=== PATIENT | male | born 1955 | race Caucasian/White ===

== ENCOUNTER 2016-08-10 01:46 | Emergency (ER) | payer MEDICAID ==
[2016-08-10 01:47] VITALS: BMI 33.4
[2016-08-10 01:58] VITALS: BP 160/91; PULSE 72; RESP 18; TEMP 98.6; O2SAT 100
[2016-08-10] MEDS ORDERED: Oxycodone/Acetaminophen 5/325 mg Tab PO STA (01:58)
--- NOTE | 2016-08-10 02:00 | ED PDOC ---
Arrival/HPI - General Historian: Patient <Renan Fisher - Last Filed: 08/10/16 02:05> <Po Kimball - Last Filed: 08/10/16 02:20> - General Chief Complaint: Abnormal Skin Integrity Time Seen by Provider: 08/10/16 01:58 - History of Present Illness Narrative History of Present Illness (Text): 08/10/16 01:50 60 y/o male, pmh including htn/hyperlipidemia/dm, nkda, c/o painful rash on the rt. sided flank x 2 days. Pt. stated that it was itching but now it's painful, itching resolved, no fever or chills, no chest pain or shortness of breath, no palpitation, no other medical or psychological complaints. (Renan Fisher) Past Medical History - Provider Review Nursing Documentation Reviewed: Yes - Infectious Disease Hx of Infectious Diseases: None - Cardiac Hx Hypertension: Yes - Pulmonary Hx Chronic Obstructive Pulmonary Disease (COPD): Yes - Neurological Hx Neurological Disorder: No - HEENT Hx HEENT Disorder: No - Renal Hx Renal Disorder: No - Endocrine/Metabolic Hx Endocrine Disorders: Yes Hx Diabetes Mellitus Type 2: Yes - Hematological/Oncological Hx Blood Transfusions: No Hx Blood Transfusion Reaction: No - Integumentary Hx Dermatological Disorder: No - Musculoskeletal/Rheumatological Hx Musculoskeletal Disorders: No Hx Falls: No - Gastrointestinal Hx Gastrointestinal Disorders: Yes Hx Gastroesophageal Reflux: Yes - Genitourinary/Gynecological Hx Genitourinary Disorders: No - Psychiatric Hx Psychophysiologic Disorder: No Hx Depression: No Hx Emotional Abuse: No Hx Physical Abuse: No Hx Substance Use: No - Surgical History Hx Cardiac Catheterization: Yes Hx Coronary Stent: Yes (X3) Other/Comment: CARDIAC CATH X 3 STENTS - Anesthesia Hx Anesthesia Reactions: No Hx Malignant Hyperthermia: No - Suicidal Assessment Feels Threatened In Home Enviroment: No <Renan Fisher - Last Filed: 08/10/16 02:05> Family/Social History - Physician Review Nursing Documentation Reviewed: Yes Family/Social History: Unknown Family HX Smoking Status: Former Smoker Hx Alcohol Use: No Hx Substance Use: No Hx Substance Use Treatment: No <Renan Fisher - Last Filed: 08/10/16 02:05> Allergies/Home Meds <Renan Fisher - Last Filed: 08/10/16 02:05> <Po Kimball - Last Filed: 08/10/16 02:20> Allergies/Adverse Reactions: Allergies apple Allergy (Verified 05/01/15 23:36) RASH peach Allergy (Verified 05/01/15 23:36) SWELLING pear Allergy (Verified 05/01/15 23:36) SWELLING Home Medications: Home Meds Medication Instructions Recorded Confirmed Multivit,Iron,Min 5/Folic Acid 1 tab PO DAILY 02/17/15 06/20/16 [Strovite Forte Caplet] Metformin HCl [Glucophage] 500 mg PO DAILY 05/01/15 06/20/16 Aspirin [Adult Low Dose Aspirin EC] 81 mg PO DAILY 06/20/16 06/20/16 Fenofibrate,Micronized 130 mg PO DAILY 06/20/16 06/20/16 [Fenofibrate] Metoprolol Tartrate [Lopressor] 50 mg PO DAILY 06/20/16 06/20/16 Simvastatin 20 mg PO DAILY 06/20/16 06/20/16 Valsartan [Diovan] 160 mg PO DAILY 06/20/16 06/20/16 Review of Systems - Review of Systems Constitutional: absent: Fatigue, Fevers Eyes: absent: Vision Changes ENT: absent: Hearing Changes Respiratory: absent: SOB, Cough, Sputum Cardiovascular: absent: Chest Pain Gastrointestinal: absent: Abdominal Pain, Diarrhea, Nausea, Vomiting Skin: Rash, Skin Lesions. absent: Pruritis, Laceration, Abscess, Ulcer, Cellulitis Neurological: absent: Headache, Dizziness, Facial Droop Endocrine: absent: Diaphoresis <Renan Fisher - Last Filed: 08/10/16 02:05> Physical Exam Vital Signs Reviewed: Yes Temperature: Afebrile Blood Pressure: Hypertensive Pulse: Regular Respiratory Rate: Normal Appearance: Positive for: Well-Appearing, Non-Toxic, Comfortable Pain Distress: Moderate Mental Status: Positive for: Alert and Oriented X 3 - Systems Exam Head: Present: Atraumatic, Normocephalic Pupils: Present: PERRL Extroacular Muscles: Present: EOMI Conjunctiva: Present: Normal Mouth: Present: Moist Mucous Membranes Neck: Present: Normal Range of Motion Respiratory/Chest: Present: Clear to Auscultation, Good Air Exchange. No: Respiratory Distress, Accessory Muscle Use Cardiovascular: Present: Regular Rate and Rhythm, Normal S1, S2. No: Murmurs Abdomen: Present: Normal Bowel Sounds. No: Tenderness, Distention, Peritoneal Signs Back: Present: Normal Inspection Upper Extremity: Present: Normal Inspection. No: Cyanosis, Edema Lower Extremity: Present: Normal Inspection. No: Edema Neurological: Present: GCS=15, Speech Normal, Motor Func Grossly Intact, Gait Normal, Memory Normal Skin: Present: Warm, Dry, Rashes (visible herpes zoster vesicular lesions following the dermatome T10 region on the rt. lateral without crossing the midline, no cellulitis or streaking, no ulcers. ), Normal Color Psychiatric: Present: Alert, Oriented x 3, Normal Insight, Normal Concentration <Renan Fisher - Last Filed: 08/10/16 02:05> Medical Decision Making <Renan Fisher - Last Filed: 08/10/16 02:05> <Po Kimball - Last Filed: 08/10/16 02:20> ED Course and Treatment: 08/10/16 01:59 -valtrex, prednisone, percocet -I checked the [facility] report, pt. only receive 1 narcotic in the past 365 days. -Discharge home with prednisone, valtrex, percocet, bed rest, keep the skin cool and dry, follow up with your own pmd and director investment banking within 2 days, return to the ER for any new or worsening signs or symptoms. (Renan Fisher) - Medication Orders Current Medication Orders: Discontinued Medications Oxycodone/Acetaminophen (Percocet 5/325 Mg Tab) 1 tab PO STAT STA Stop: 08/10/16 01:59 Last Admin: 08/10/16 02:05 Dose: 1 tab Prednisone (Prednisone Tab) 60 mg PO STAT ONE Stop: 08/10/16 01:59 Last Admin: 08/10/16 02:05 Dose: 60 mg Valacyclovir HCl (Valtrex) 1 gm PO STAT STA PRN Reason: Protocol Stop: 08/10/16 01:59 Last Admin: 08/10/16 02:04 Dose: 1 gm - PA / GROUP HOME COUNSELOR / Resident Statement / has reviewed & agrees with the documentation as recorded. <Renan Fisher - Last Filed: 08/10/16 02:05> - PA / GROUP HOME COUNSELOR / Resident Statement [facility] has reviewed & agrees with the documentation as recorded. <Po Kimball - Last Filed: 08/10/16 02:20> Disposition/Present on Arrival - Present on Arrival Any Indicators Present on Arrival: No History of DVT/PE: No History of Uncontrolled Diabetes: No Urinary Catheter: No History of Decub. Ulcer: No History Surgical Site Infection Following: None - Disposition Have Diagnosis and Disposition been Completed?: Yes Disposition Time: 02:00 Patient Plan: Discharge <Renan Fisher - Last Filed: 08/10/16 02:05> <Po Kimball - Last Filed: 08/10/16 02:20> - Disposition Diagnosis: Herpes zoster Disposition: HOME/ ROUTINE Condition: GOOD Discharge Instructions (ExitCare): Shingles (ED) Additional Instructions: Discharge home with prednisone, valtrex, percocet, bed rest, keep the skin cool and dry, follow up with your own pmd and director investment banking within 2 days, return to the ER for any new or worsening signs or symptoms. Prescriptions: oxyCODONE/Acetaminophen [Percocet 5/325 mg Tab] 1 tab PO QID PRN #12 tab PRN Reason: other predniSONE [Prednisone] 2 tab PO DAILY #8 tab valACYclovir [Valtrex] 1 gm PO TID #21 tab Referrals: Homero Vallejo MD [Staff Provider] - Follow up with primary Jean-Pierre Estes MD [Staff Provider] - Follow up with primary [facility] at [facility] [place] [Outside] - Follow up with primary Forms: WORK NOTE
== END 2016-08-10 06:22 | disposition home or self-care (01) ==
LOC: ED 01:46
DX: B02.9 Zoster without complications (principal); Z87.891 Personal history of nicotine dependence; E11.9 Type 2 diabetes mellitus without complications; I10 Essential (primary) hypertension

== ENCOUNTER 2016-08-16 09:07 | Emergency (ER) | payer MEDICAID ==
[2016-08-16 09:08] VITALS: BMI 33.4
--- NOTE | 2016-08-16 09:16 | ED PDOC ---
Arrival/HPI - General Time Seen by Provider: 08/16/16 09:13 Historian: Patient - History of Present Illness Narrative History of Present Illness (Text): 08/16/16 09:15 60 y/o male, pmh including htn/hyperlipidemia/dm, nkda, c/o shingle lesion pain x 2 days. Pt. was seen here by me o 08/12/2016, done with the prednisone and percocets, pain and rash has decreased but not completely resolved, still has 2 tablets of valtrex in the bottle, here for the pain med due to the shingle pain on the rt. flank, no urinary symptoms, no hematuria, no night sweat, no dizziness, no chest pain or shortness of breath, no palpitation, no other medical or psychological complaints. Past Medical History - Provider Review Nursing Documentation Reviewed: Yes - Infectious Disease Hx of Infectious Diseases: None - Cardiac Hx Hypertension: Yes - Pulmonary Hx Chronic Obstructive Pulmonary Disease (COPD): Yes - Neurological Hx Neurological Disorder: No - HEENT Hx HEENT Disorder: No - Renal Hx Renal Disorder: No - Endocrine/Metabolic Hx Endocrine Disorders: Yes Hx Diabetes Mellitus Type 2: Yes - Hematological/Oncological Hx Blood Transfusions: No Hx Blood Transfusion Reaction: No - Integumentary Hx Dermatological Disorder: No - Musculoskeletal/Rheumatological Hx Musculoskeletal Disorders: No Hx Falls: No - Gastrointestinal Hx Gastrointestinal Disorders: Yes Hx Gastroesophageal Reflux: Yes - Genitourinary/Gynecological Hx Genitourinary Disorders: No - Psychiatric Hx Psychophysiologic Disorder: No Hx Depression: No Hx Emotional Abuse: No Hx Physical Abuse: No Hx Substance Use: No - Surgical History Hx Cardiac Catheterization: Yes Hx Coronary Stent: Yes (X3) Other/Comment: CARDIAC CATH X 3 STENTS - Anesthesia Hx Anesthesia Reactions: No Hx Malignant Hyperthermia: No - Suicidal Assessment Feels Threatened In Home Enviroment: No Family/Social History - Physician Review Nursing Documentation Reviewed: Yes Family/Social History: Unknown Family HX Smoking Status: Former Smoker Hx Alcohol Use: No Hx Substance Use: No Hx Substance Use Treatment: No Allergies/Home Meds Allergies/Adverse Reactions: Allergies apple Allergy (Verified 08/16/16 09:32) RASH peach Allergy (Verified 08/16/16 09:32) SWELLING pear Allergy (Verified 08/16/16 09:32) SWELLING Home Medications: Home Meds Medication Instructions Recorded Confirmed Multivit,Iron,Min 5/Folic Acid 1 tab PO DAILY 02/17/15 06/20/16 [Strovite Forte Caplet] Metformin HCl [Glucophage] 500 mg PO DAILY 05/01/15 06/20/16 Aspirin [Adult Low Dose Aspirin EC] 81 mg PO DAILY 06/20/16 06/20/16 Fenofibrate,Micronized 130 mg PO DAILY 06/20/16 06/20/16 [Fenofibrate] Metoprolol Tartrate [Lopressor] 50 mg PO DAILY 06/20/16 06/20/16 Simvastatin 20 mg PO DAILY 06/20/16 06/20/16 Valsartan [Diovan] 160 mg PO DAILY 06/20/16 06/20/16 Review of Systems - Review of Systems Constitutional: absent: Fatigue, Fevers Eyes: absent: Vision Changes ENT: absent: Hearing Changes Respiratory: absent: SOB, Cough Cardiovascular: absent: Chest Pain Gastrointestinal: absent: Abdominal Pain, Nausea, Vomiting Skin: Rash, Skin Lesions. absent: Pruritis, Laceration, Abscess, Ulcer, Cellulitis Neurological: absent: Headache, Dizziness, Focal Weakness Physical Exam - Systems Exam Head: Present: Atraumatic, Normocephalic Pupils: Present: PERRL Extroacular Muscles: Present: EOMI Conjunctiva: Present: Normal Mouth: Present: Moist Mucous Membranes Neck: Present: Normal Range of Motion Respiratory/Chest: Present: Clear to Auscultation, Good Air Exchange. No: Respiratory Distress, Accessory Muscle Use Cardiovascular: Present: Regular Rate and Rhythm, Normal S1, S2. No: Murmurs Abdomen: Present: Normal Bowel Sounds. No: Tenderness, Distention, Peritoneal Signs Back: Present: Normal Inspection Upper Extremity: Present: Normal Inspection. No: Cyanosis, Edema Lower Extremity: Present: Normal Inspection. No: Edema Neurological: Present: GCS=15, Speech Normal, Motor Func Grossly Intact, Gait Normal, Memory Normal Skin: Present: Warm, Dry, Rashes (rt. flank region unilateral following the thoracic dermatome visible dry healing vesicular herpetic rash with no cellulitis or streaking, no ulcers. ), Normal Color Psychiatric: Present: Alert, Oriented x 3, Normal Insight, Normal Concentration Medical Decision Making ED Course and Treatment: 08/16/16 09:32 -toradol IM and gabapentin/percocet -I explained to the patient I will give him titrated gabapentin and he will need to follow up with your own pmd Dr. Riggs for additional prescription. -Discharge home with gabapentin (please take it as instructed and this is a titrated medication which you will need additional prescription from dr. riggs) , follow up with your own pmd within 2 days, contact isolation as shingles is contagious, return to the ER for any new or worsening signs or symptoms. - PA / CARE MANAGEMENT ASSISTANT / Resident Statement MD/DO has reviewed & agrees with the documentation as recorded. Disposition/Present on Arrival - Present on Arrival Any Indicators Present on Arrival: No History of DVT/PE: No History of Uncontrolled Diabetes: No Urinary Catheter: No History of Decub. Ulcer: No History Surgical Site Infection Following: None - Disposition Have Diagnosis and Disposition been Completed?: Yes Diagnosis: Post herpetic neuralgia Disposition: HOME/ ROUTINE Disposition Time: 09:36 Patient Plan: Discharge Condition: GOOD Additional Instructions: Discharge home with gabapentin (please take it as instructed and this is a titrated medication which you will need additional prescription from dr. riggs) , follow up with your own pmd within 2 days, contact isolation as shingles is contagious, return to the ER for any new or worsening signs or symptoms. Prescriptions: Gabapentin 300 mg PO DAILY #22 capsule Referrals: [facility] [place]] - Follow up with primary Geoffrey Hansen MD [Staff Provider] - Follow up with primary Forms: WORK NOTE
[2016-08-16] MEDS ORDERED: Oxycodone/Acetaminophen 5/325 mg Tab PO STA (09:32)
[2016-08-16 09:33] VITALS: BP 162/94; PULSE 60; RESP 18; TEMP 97.8; O2SAT 96
== END 2016-08-16 10:20 | disposition home or self-care (01) ==
LOC: ED 09:07
DX: B02.29 Other postherpetic nervous system involvement (principal)
CPT/HCPCS: 96372; 99283; J1885

== ENCOUNTER 2016-08-17 03:07 | Emergency (ER) | payer MEDICAID ==
[2016-08-17 03:09] VITALS: BMI 33.4
[2016-08-17 03:29] VITALS: RESP 18; TEMP 97.6
[2016-08-17] MEDS ORDERED: HYDROmorphone 1 mg/ml ISec SC STA (04:25)
--- NOTE | 2016-08-17 04:37 | ED PDOC ---
Arrival/HPI - General Chief Complaint: Medical Clearance Time Seen by Provider: 08/17/16 04:11 Historian: Patient - History of Present Illness Narrative History of Present Illness (Text): 08/17/16 04:32 Phong Miranda is a 60 year old male, with a history of CAD and hypertension, presents to the emergency department for evaluation of recurrence of pain due to shingles. Patient initially presented to the emergency department on 2016 when he was diagnosed with shingles and sent home on Acyclovir, Prednisone and 12 percocet tablets. Patient presented yesterday to the emergency department with recurrence of pain and was given prescription for Gabapentin, which he has filled. He presents today with recurrence of same pain along the area of the rash. No fever, or vomiting. Symptom Course: Unchanged Severity Level: Mild Activities at Onset: Light Past Medical History - Provider Review Nursing Documentation Reviewed: Yes - Infectious Disease Hx of Infectious Diseases: None - Cardiac Hx Hypertension: Yes Other/Comment: CAD,5 stents - Pulmonary Hx Chronic Obstructive Pulmonary Disease (COPD): Yes - Neurological Hx Neurological Disorder: No - HEENT Hx HEENT Disorder: No - Renal Hx Renal Disorder: No - Endocrine/Metabolic Hx Endocrine Disorders: Yes Hx Diabetes Mellitus Type 2: Yes - Hematological/Oncological Hx Blood Disorders: No Hx Blood Transfusions: No Hx Blood Transfusion Reaction: No - Integumentary Hx Dermatological Disorder: No - Musculoskeletal/Rheumatological Hx Musculoskeletal Disorders: No Hx Falls: No - Gastrointestinal Hx Gastrointestinal Disorders: Yes Hx Gastroesophageal Reflux: Yes - Genitourinary/Gynecological Hx Genitourinary Disorders: No - Psychiatric Hx Psychophysiologic Disorder: No Hx Depression: No Hx Emotional Abuse: No Hx Physical Abuse: No Hx Substance Use: No - Surgical History Hx Cardiac Catheterization: Yes Hx Coronary Stent: Yes (x 5) Other/Comment: CARDIAC CATH X 3 STENTS - Anesthesia Hx Anesthesia Reactions: No Hx Malignant Hyperthermia: No - Suicidal Assessment Feels Threatened In Home Enviroment: No Family/Social History - Physician Review Nursing Documentation Reviewed: Yes Family/Social History: No Known Family HX Smoking Status: Former Smoker Hx Alcohol Use: No Hx Substance Use: No Hx Substance Use Treatment: No Allergies/Home Meds Allergies/Adverse Reactions: Allergies apple Allergy (Verified 08/17/16 03:30) RASH peach Allergy (Verified 08/16/16 09:32) SWELLING pear Allergy (Verified 08/16/16 09:32) SWELLING Home Medications: Home Meds Medication Instructions Recorded Confirmed Multivit,Iron,Min 5/Folic Acid 1 tab PO DAILY 02/17/15 08/17/16 [Strovite Forte Caplet] Metformin HCl [Glucophage] 500 mg PO DAILY 05/01/15 08/17/16 Aspirin [Adult Low Dose Aspirin EC] 81 mg PO DAILY 06/20/16 08/17/16 Fenofibrate,Micronized 130 mg PO DAILY 06/20/16 08/17/16 [Fenofibrate] Metoprolol Tartrate [Lopressor] 50 mg PO DAILY 06/20/16 08/17/16 Simvastatin 20 mg PO DAILY 06/20/16 08/17/16 Valsartan [Diovan] 160 mg PO DAILY 06/20/16 08/17/16 Gabapentin 300 mg PO TID 08/17/16 08/17/16 Review of Systems - Review of Systems Constitutional: absent: Fevers Gastrointestinal: Abdominal Pain (related to the rash). absent: Nausea, Vomiting Skin: Rash (Pain along the shingles rash. ) Physical Exam Vital Signs Reviewed: Yes Vital Signs Temp Pulse Resp BP Pulse Ox 08/17/16 04:35 64 18 139/75 97 08/17/16 03:25 97.6 F 65 18 144/85 97 Temperature: Afebrile Blood Pressure: Normal Pulse: Regular Respiratory Rate: Normal Appearance: Positive for: Non-Toxic Pain Distress: Moderate Mental Status: Positive for: Alert and Oriented X 3 - Systems Exam Head: Present: Atraumatic, Normocephalic Abdomen: Present: Normal Bowel Sounds, Other (resolving shinges rash on right side extending to right flank region, not crossing midline. No vesicular lesions. ). No: Tenderness, Distention, Peritoneal Signs Neurological: Present: GCS=15, CN II-XII Intact, Speech Normal Skin: Present: Warm, Dry, Rashes (as noted), Normal Color Psychiatric: Present: Alert, Oriented x 3, Normal Insight, Normal Concentration Medical Decision Making ED Course and Treatment: 08/17/16 04:40 Impression: Patient is a 60 year old male who presents to the emergency department complaining of recurrence of pain along the area of shingles rash. Progress Notes: 08/17/16 04:46 Patient with resolving shingles rash with pain related to shingles or developing post-herpetic neuralgia. 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 Will give an additional script for 8 tabs of percocet, as he continues the gabapentin, which is not helping as of yet. He cannot be placed on nsaids as he has CAD with stents. 08/17/16 04:55 Will also recommend he follow up with pain management. - Medication Orders Current Medication Orders: Discontinued Medications Hydromorphone HCl (Dilaudid) 1 mg SC STAT STA Stop: 08/17/16 04:26 Last Admin: 08/17/16 04:37 Dose: 1 mg - Scribe Statement The provider has reviewed the documentation as recorded by the Jomar Burgos Provider Attestation: All medical record entries made by the Jomar were at my direction and personally dictated by me. I have reviewed the chart and agree that the record accurately reflects my personal performance of the history, physical exam, medical decision making, and the department course for this patient. I have also personally directed, reviewed, and agree with the discharge instructions and disposition. Disposition/Present on Arrival - Present on Arrival Any Indicators Present on Arrival: No History of DVT/PE: No History of Uncontrolled Diabetes: No Urinary Catheter: No History of Decub. Ulcer: No History Surgical Site Infection Following: None - Disposition Have Diagnosis and Disposition been Completed?: Yes Diagnosis: Shingles Disposition: HOME/ ROUTINE Disposition Time: 05:00 Patient Plan: Discharge Condition: GOOD Discharge Instructions (ExitCare): Shingles (ED) Additional Instructions: Continue the gabapentin. Take the percocet as prescribed. Follow up with Dr. Marti and pain management. Return to the emergency department if any new concerning symptoms. Prescriptions: oxyCODONE/Acetaminophen [Percocet 5/325 mg Tab] 1 tab PO Q6H PRN #8 tab PRN Reason: Pain, Severe (8-10) Referrals: Randall Lora MD [Staff Provider] - Follow up with primary
[2016-08-17 05:08] VITALS: BP 138/78; PULSE 66; O2SAT 98
== END 2016-08-17 05:10 | disposition home or self-care (01) ==
LOC: ED 03:07
DX: B02.9 Zoster without complications (principal)
CPT/HCPCS: 96372; 99283; J1170

== ENCOUNTER 2016-09-22 17:02 | Emergency (ER) | payer MEDICAID ==
[2016-09-22] MEDS ORDERED: Sodium Chloride 0.9% 1,000 ML IV STA (17:38)
--- NOTE | 2016-09-22 17:45 | ED PDOC ---
Arrival/HPI - General Time Seen by Provider: 09/22/16 17:31 Historian: Patient - History of Present Illness Narrative History of Present Illness (Text): 09/22/16 17:34 A 61 year old male with no known past medical history presents to the emergency department with left flank and left testicular pain today. The patient states that 3 hours ago he was in pain, but he is currently in no pain. He notes that he had diarrhea and vomiting. The patient denies headache, dizziness, nausea, chest pain, fevers, chills, dysuria, hematuria, or any other complaint. Time/Duration: Other (Today) Symptom Onset: Sudden Symptom Course: Unchanged Activities at Onset: Rest, Light Context: Home Past Medical History - Provider Review Nursing Documentation Reviewed: Yes - Infectious Disease Hx of Infectious Diseases: None - Cardiac Hx Hypertension: Yes Other/Comment: CAD,5 stents - Pulmonary Hx Chronic Obstructive Pulmonary Disease (COPD): Yes - Neurological Hx Neurological Disorder: No - HEENT Hx HEENT Disorder: No - Renal Hx Renal Disorder: No - Endocrine/Metabolic Hx Endocrine Disorders: Yes Hx Diabetes Mellitus Type 2: Yes - Hematological/Oncological Hx Blood Disorders: No Hx Blood Transfusions: No Hx Blood Transfusion Reaction: No - Integumentary Hx Dermatological Disorder: No - Musculoskeletal/Rheumatological Hx Musculoskeletal Disorders: No Hx Falls: No - Gastrointestinal Hx Gastrointestinal Disorders: Yes Hx Gastroesophageal Reflux: Yes - Genitourinary/Gynecological Hx Genitourinary Disorders: No - Psychiatric Hx Psychophysiologic Disorder: No Hx Depression: No Hx Emotional Abuse: No Hx Physical Abuse: No Hx Substance Use: No - Surgical History Hx Cardiac Catheterization: Yes Hx Coronary Stent: Yes (x 5) Other/Comment: CARDIAC CATH X 3 STENTS - Anesthesia Hx Anesthesia Reactions: No Hx Malignant Hyperthermia: No - Suicidal Assessment Feels Threatened In Home Enviroment: No Family/Social History - Physician Review Nursing Documentation Reviewed: Yes Family/Social History: No Known Family HX Smoking Status: Former Smoker Hx Alcohol Use: No Hx Substance Use: No Hx Substance Use Treatment: No Allergies/Home Meds Allergies/Adverse Reactions: Allergies apple Allergy (Verified 08/17/16 03:30) RASH peach Allergy (Verified 08/16/16 09:32) SWELLING pear Allergy (Verified 08/16/16 09:32) SWELLING Home Medications: Home Meds Medication Instructions Recorded Confirmed Multivit,Iron,Min 5/Folic Acid 1 tab PO DAILY 02/17/15 08/17/16 [Strovite Forte Caplet] Metformin HCl [Glucophage] 500 mg PO DAILY 05/01/15 08/17/16 Aspirin [Adult Low Dose Aspirin EC] 81 mg PO DAILY 06/20/16 08/17/16 Fenofibrate,Micronized 130 mg PO DAILY 06/20/16 08/17/16 [Fenofibrate] Metoprolol Tartrate [Lopressor] 50 mg PO DAILY 06/20/16 08/17/16 Simvastatin 20 mg PO DAILY 06/20/16 08/17/16 Valsartan [Diovan] 160 mg PO DAILY 06/20/16 08/17/16 Gabapentin 300 mg PO TID 08/17/16 08/17/16 Review of Systems - Physician Review All systems were reviewed & negative as marked: Yes - Review of Systems Constitutional: absent: Fevers, Night Sweats Respiratory: absent: SOB, Cough Cardiovascular: absent: Chest Pain Gastrointestinal: Diarrhea, Vomiting. absent: Nausea Genitourinary Male: absent: Dysuria, Hematuria Neurological: absent: Headache, Dizziness Physical Exam Vital Signs Reviewed: Yes Vital Signs Temp Pulse Resp BP Pulse Ox 09/22/16 17:49 98.2 F 83 16 151/84 H 97 Appearance: Positive for: Well-Appearing, Non-Toxic, Comfortable Pain Distress: None Mental Status: Positive for: Alert and Oriented X 3 - Systems Exam Head: Present: Atraumatic, Normocephalic Pupils: Present: PERRL Extroacular Muscles: Present: EOMI Conjunctiva: Present: Normal Mouth: Present: Moist Mucous Membranes Neck: Present: Normal Range of Motion Respiratory/Chest: Present: Clear to Auscultation, Good Air Exchange. No: Respiratory Distress, Accessory Muscle Use Cardiovascular: Present: Regular Rate and Rhythm, Normal S1, S2. No: Murmurs Abdomen: Present: Normal Bowel Sounds. No: Tenderness, Distention, Peritoneal Signs Back: Present: Normal Inspection Upper Extremity: Present: Normal Inspection. No: Cyanosis, Edema Lower Extremity: Present: Normal Inspection. No: Edema Neurological: Present: GCS=15, CN II-XII Intact, Speech Normal Skin: Present: Warm, Dry, Normal Color. No: Rashes Psychiatric: Present: Alert, Oriented x 3, Normal Insight, Normal Concentration Medical Decision Making ED Course and Treatment: 09/22/16 17:47 Impression: A 71 year old male with a complaint of left flank and left testicular pain. Differential Diagnosis included but are not limited to: r/o renal colic tosion ,epdidimyitis, uti/pyelo Plan: -- Abdomen/Pelvis CT -- Toradol and IV Fluids -- Labs -- Urinalysis -- US Testes -- Reassess and disposition Progress Notes: US Scrotum IMPRESSION: No torsion; mild hyperemia of the left testis on color imaging suggests orchitis CT Abdomen and Pelvis Without Intravenous Contrast IMPRESSION: 2.1 mm obstructing distal left ureteral stone; multiple nonobstructing left renal stones; probable left ureteropelvic junction obstruction; gallstone 09/22/16 20:41 pt pain free in er. us shows very slight increased flow, suggestive of orchititis. abd pelvis shows 2mm distal stone. pain resolved in er. urine neg for infection. antibiotics given for mild orchtiis. pt states feels well for d/ c. advise outpt f/u and return precautions - Lab Interpretations Lab Results: 09/22/16 17:50 09/22/16 17:50 Lab Results 09/22/16 17:50: Sodium 140, Potassium 4.2, Chloride 100, Carbon Dioxide 28, Anion Gap 16, BUN 20, Creatinine 1.5 H, Est GFR ( Amer) 58, Est GFR (Non- Af Amer) 48, Random Glucose 188 H, Calcium 9.4, Total Bilirubin 0.6, AST 25, ALT 26, Alkaline Phosphatase 78, Total Protein 7.6, Albumin 4.4, Globulin 3.2, Albumin/Globulin Ratio 1.4, Lipase 153 09/22/16 17:50: PT 11.1, INR 1.03, APTT 25.3 09/22/16 17:50: WBC 12.3 H D, RBC 5.31, Hgb 15.5, Hct 44.9, MCV 84.6, MCH 29.2, MCHC 34.5, RDW 13.4, Plt Count 190, MPV 11.1 H, Gran % 81.3 H, Lymph % (Auto) 14.1 L, [place] % (Auto) 3.7, Eos % (Auto) 0.7 L, Baso % (Auto) 0.2, Gran # 10.00 H , Lymph # 1.7, [place] # 0.5, Eos # 0.1, Baso # 0.02 09/22/16 17:45: Urine Color Yellow, Urine Appearance Slight-cloudy, Urine pH 5.5 , Ur Specific [place] >= 1.030, Urine Protein Trace H, Urine Glucose (UA) Negative, Urine Ketones Negative, Urine Blood Large H, Urine Nitrate Negative, Urine Bilirubin Negative, Urine Urobilinogen 0.2, Ur Leukocyte Esterase Negative , Urine RBC 25 - 30, Urine WBC 1 - 3, Ur Epithelial Cells 1 - 3 - RAD Interpretation Radiology Orders: 09/22/16 17:38 ABD & PELVIS W/O PO OR IV CONT [CT] Stat TESTES DUPLEX COMPLETE [US] Stat - Medication Orders Current Medication Orders: Discontinued Medications Ciprofloxacin (Cipro) 500 mg PO STAT STA PRN Reason: Protocol Stop: 09/22/16 20:37 Sodium Chloride (Sodium Chloride 0.9%) 1,000 mls @ 1,000 mls/hr IV .Q1H STA Stop: 09/22/16 18:37 Last Admin: 09/22/16 18:02 Dose: 1,000 mls/hr Ketorolac Tromethamine (Toradol) 30 mg IVP STAT STA Stop: 09/22/16 17:39 Last Admin: 09/22/16 18:02 Dose: 30 mg Tamsulosin HCl (Flomax) 0.4 mg PO STAT STA Stop: 09/22/16 20:38 - Scribe Statement The provider has reviewed the documentation as recorded by the Hueibe Hortensia Palmer Provider Scribe Attestation: All medical record entries made by the Scribe were at my direction and personally dictated by me. I have reviewed the chart and agree that the record accurately reflects my personal performance of the history, physical exam, medical decision making, and the department course for this patient. I have also personally directed, reviewed, and agree with the discharge instructions and disposition. Disposition/Present on Arrival - Present on Arrival Any Indicators Present on Arrival: No History of DVT/PE: No History of Uncontrolled Diabetes: No Urinary Catheter: No History Surgical Site Infection Following: None - Disposition Have Diagnosis and Disposition been Completed?: Yes Diagnosis: Kidney stone, Orchitis Disposition: HOME/ ROUTINE Disposition Time: 20:42 Patient Problems: Current Active Problems Problem Status Onset Kidney stone Acute Orchitis Acute Condition: STABLE Discharge Instructions (ExitCare): Kidney Stones (ED), Epididymo-orchitis (ED) Additional Instructions: please follow up with your doctor/specialist. return to er with worsening symptoms or concerns. Prescriptions: Ciprofloxacin [Cipro] 500 mg PO BID #14 tab Ibuprofen [Motrin Tab] 600 mg PO Q8 PRN #20 tab PRN Reason: Pain, Mild (1-3) oxyCODONE/Acetaminophen [Percocet 5/325 mg Tab] 1 ea PO Q6 PRN #10 tab PRN Reason: Pain, Severe (8-10) Tamsulosin [Flomax] 0.4 mg PO DAILY #10 cap Referrals: [facility] [Outside] - Follow up with primary [employer] [facility] [Outside] - Follow up with primary Vitaliy Collins MD [Staff Provider] - Follow up with primary Forms: [employer] (Danish)
[2016-09-22 17:55] VITALS: TEMP 98.2; O2SAT 97; BMI 25.9
[2016-09-22 18:22] LABS: BASO # 0.02 K/mm3 (0.0-2.0); BASO % 0.2 % (0.0-3.0); EOS # 0.1 (0.0-0.7); EOS % 0.7 % (1.5-5.0); GRAN % 81.3 % (50.0-68.0); HEMOGLOBIN 15.5 g/dL (14.0-18.0); LYMPH # 1.7 (1.2-3.4); LYMPH % 14.1 % (22.0-35.0); MEAN CELL VOLUME 84.6 fl (80.0-105.0); MEAN CORPUSCULAR HEMOGLOBIN 29.2 pg (25.0-35.0); MEAN CORPUSCULAR HGB CONC 34.5 g/dl (31.0-37.0); MEAN PLATELET VOLUME 11.1 fl (7.0-11.0); MONO # 0.5 (0.1-0.6); MONO % 3.7 % (1.0-6.0); PLATELET COUNT 190 10^3/uL (120.0-450.0); RBC 5.31 10^6/uL (3.5-6.1); RED CELL DISTRIBUTION WIDTH 13.4 % (11.5-14.5); WHITE BLOOD COUNT 12.3 10^3/ul (4.5-11.0)
[2016-09-22 18:32] LABS: PH,URINE 5.5 (4.7-8.0); URINE BILIRUBIN NEGATIVE (NEGATIVE); URINE BLOOD LARGE (NEGATIVE); URINE GLUCOSE (UA) NEGATIVE (NEGATIVE); URINE LEUKOCYTE ESTERASE NEGATIVE Leu/uL (NEGATIVE); URINE NITRATE NEGATIVE (NEGATIVE); URINE PROTEIN TRACE mg/dL (<30 mg/dL); URINE UROBILINOGEN 0.2 E.U./dL (<1 E.U./dL)
[2016-09-22 18:33] LABS: URINE APPEARANCE SLIGHT-CLOUDY (CLEAR); URINE COLOR YELLOW (YELLOW)
[2016-09-22 18:33] LABS: ALB/GLOB RATIO 1.4 (1.1-1.8); ALBUMIN 4.4 g/dL (3.0-4.8); CALCIUM 9.4 mg/dL (8.4-10.5)
[2016-09-22 18:34] LABS: INR 1.03 (0.93-1.08); PARTIAL THROMBOPLASTIN TIME 25.3 Seconds (23.7-30.8); PROTHROMBIN TIME 11.1 Seconds (9.9-11.8)
[2016-09-22 19:01] LABS: URINE RBC 25 - 30 /hpf (0-2)
--- NOTE | 2016-09-22 19:43 | US ---
EXAM: US Scrotum CLINICAL HISTORY: 61 years old, male; Pain; Scrotum pain; Additional info: Left testicular pain TECHNIQUE: Real-time ultrasound of the scrotum with color Doppler and image documentation. EXAM DATE/TIME: 09/22/2016 5:38 PM COMPARISON: There are no prior studies for comparison. FINDINGS: Right Right testicle measures approximately 4.85 x 2.47 x 2.76 cm. Echotexture is uniform. There are no masses.There is expected blood flow on Doppler imaging. There is a very small hydrocele. There is no skin thickening Right epididymal head measures approximately 13 x 10 mm. Left Left testicle measures approximately 5.11 x 2.28 x 2.87 cm. Echotexture is uniform. There are no testicular masses. There is intratesticular flow. Left testis appears slightly hyperemic on color imaging. There is a small hydrocele. There is no skin thickening. Left epididymal head measures approximately 12.5 x 7.5 mm. IMPRESSION: No torsion; mild hyperemia of the left testis on color imaging suggests orchitis
--- NOTE | 2016-09-22 20:30 | CT ---
EXAM: CT Abdomen and Pelvis Without Intravenous Contrast CLINICAL HISTORY: 61 years old, male; Pain; Abdominal pain; Flank; Left; Additional info: Left sided pain TECHNIQUE: Axial computed tomography images of the abdomen and pelvis without intravenous contrast. All CT scans at this facility use one or more dose reduction techniques, viz.: automated exposure control; ma/kV adjustment per patient size (including targeted exams where dose is matched to indication; i.e. head); or iterative reconstruction technique. Coronal and sagittal reformatted images were created and reviewed. EXAM DATE/TIME: 09/22/2016 5:38 PM COMPARISON: CR - HIP W/WO PELVIS 2-3 VIEWS LT 12/25/2015 9:17:07 AM FINDINGS: Lower thorax: The heart is normal in size. There are coronary calcifications. There is a small hiatal hernia. There is atelectasis at the lung bases. There is scarring at the lung bases. ABDOMEN: Liver: unremarkable Gallbladder and bile ducts: Gallbladder is incompletely distended. There is a small calcified gallstone. Common duct is unremarkable. Pancreas: Pancreas is mildly atrophic. Spleen: unremarkable Adrenals: unremarkable Kidneys and ureters: Right kidney and ureter are unremarkable. There are multiple nonobstructing left renal stones. There is left pelvocaliectasis. There is mild left ureterectasis. There is a 2.1 mm distal left ureteral stone. Stone is proximal to the ureterovesical junction. Stomach and bowel: Stomach is almost empty. Rotation is normal. There is no small bowel obstruction. Appendix and terminal ileum are unremarkable.Colon is incompletely distended which limits evaluation. There is scattered diverticulosis Appendix: See above. PELVIS: Bladder: Bladder is incompletely distended. There is mild bladder wall prominence. Reproductive: Prostate is enlarged. Seminal vesicles are unremarkable. ABDOMEN and PELVIS: Intraperitoneal space: There is no free air or free fluid. Bones/joints: There are degenerative changes in the osseus structures. There is ankylosis of the sacroiliac joints Soft tissues: There is a very small fat containing umbilical hernia. Vasculature: There are calcified phleboliths. There are vascular calcifications. Lymph nodes: unremarkable IMPRESSION: 2.1 mm obstructing distal left ureteral stone; multiple nonobstructing left renal stones; probable left ureteropelvic junction obstruction; gallstone Additional findings as described above.
[2016-09-22 21:25] VITALS: BP 142/82; PULSE 85; RESP 18
== END 2016-09-22 21:26 | disposition home or self-care (01) ==
LOC: ED 17:02
DX: N45.2 Orchitis (principal); N20.0 Calculus of kidney
CPT/HCPCS: 74176; 80053; 81001; 83690; 85025; 85610; 85730; 93975; 96361; 96374; 99284; J1885; J7040

== ENCOUNTER 2016-10-18 02:21 | Emergency (ER) | payer MEDICAID ==
[2016-10-18 02:23] VITALS: BMI 25.9
[2016-10-18 02:32] VITALS: TEMP 97.7
[2016-10-18] MEDS ORDERED: Sodium Chloride 0.9% 1,000 ML IV STA (02:44)
--- NOTE | 2016-10-18 02:51 | ED PDOC ---
Arrival/HPI - General Chief Complaint: Male Genitourinary Time Seen by Provider: 10/18/16 02:39 Historian: Patient - History of Present Illness Narrative History of Present Illness (Text): 10/18/16 02:45 Phong Miranda is a 61 year old male, with a history of hypertension and CAD, presents to the emergency department complaining of 3 week duration of left lower quadrant abdominal/left flank pain associated with nausea. He was evaluated at [facility] for similar complaints on 09/22/16 when imaging results showed left renal colic. He was discharged home after resolution of pain in emergency department; however, states symptoms have recurred since. Denies any fever, chills, headache, dizziness, chest pain, shortness of breath, vomiting, diarrhea, or any other complaints at this time. Time/Duration: Other (3 weeks) Symptom Course: Unchanged Severity Level: Mild Activities at Onset: Light Context: Home Past Medical History - Provider Review Nursing Documentation Reviewed: Yes - Infectious Disease Hx of Infectious Diseases: None - Cardiac Hx Hypertension: Yes Other/Comment: CAD,5 stents - Pulmonary Hx Chronic Obstructive Pulmonary Disease (COPD): Yes - Neurological Hx Neurological Disorder: No - HEENT Hx HEENT Disorder: No - Renal Hx Renal Disorder: No - Endocrine/Metabolic Hx Endocrine Disorders: Yes Hx Diabetes Mellitus Type 2: Yes - Hematological/Oncological Hx Blood Disorders: No Hx Blood Transfusions: No Hx Blood Transfusion Reaction: No - Integumentary Hx Dermatological Disorder: No - Musculoskeletal/Rheumatological Hx Musculoskeletal Disorders: No Hx Falls: No - Gastrointestinal Hx Gastrointestinal Disorders: Yes Hx Gastroesophageal Reflux: Yes - Genitourinary/Gynecological Hx Genitourinary Disorders: No - Psychiatric Hx Psychophysiologic Disorder: No Hx Depression: No Hx Emotional Abuse: No Hx Physical Abuse: No Hx Substance Use: No - Surgical History Hx Cardiac Catheterization: Yes Hx Coronary Stent: Yes (x 5) Other/Comment: CARDIAC CATH X 3 STENTS - Anesthesia Hx Anesthesia Reactions: No Hx Malignant Hyperthermia: No - Suicidal Assessment Feels Threatened In Home Enviroment: No Family/Social History - Physician Review Nursing Documentation Reviewed: Yes Family/Social History: No Known Family HX Smoking Status: Former Smoker Hx Alcohol Use: No Hx Substance Use: No Hx Substance Use Treatment: No Allergies/Home Meds Allergies/Adverse Reactions: Allergies apple Allergy (Verified 08/17/16 03:30) RASH peach Allergy (Verified 08/16/16 09:32) SWELLING pear Allergy (Verified 08/16/16 09:32) SWELLING Home Medications: Home Meds Medication Instructions Recorded Confirmed Multivit,Iron,Min 5/Folic Acid 1 tab PO DAILY 02/17/15 10/18/16 [Strovite Forte Caplet] Metformin HCl [Glucophage] 500 mg PO DAILY 05/01/15 10/18/16 Aspirin [Adult Low Dose Aspirin EC] 81 mg PO DAILY 06/20/16 10/18/16 Fenofibrate,Micronized 130 mg PO DAILY 06/20/16 10/18/16 [Fenofibrate] Metoprolol Tartrate [Lopressor] 50 mg PO DAILY 06/20/16 10/18/16 Simvastatin 20 mg PO DAILY 06/20/16 10/18/16 Valsartan [Diovan] 160 mg PO DAILY 06/20/16 10/18/16 Gabapentin 300 mg PO TID 08/17/16 10/18/16 Review of Systems - Physician Review All systems were reviewed & negative as marked: Yes - Review of Systems Constitutional: Normal. absent: Fatigue, Fevers Respiratory: Normal. absent: SOB, Cough, Sputum Cardiovascular: Normal. absent: Chest Pain, Palpitations Gastrointestinal: Abdominal Pain (LLQ ). absent: Diarrhea, Nausea, Vomiting Musculoskeletal: Back Pain (left flank ) Skin: Normal. absent: Rash, Pruritis Neurological: Normal. absent: Headache, Dizziness Physical Exam Vital Signs Reviewed: Yes Vital Signs Temp Pulse Resp BP Pulse Ox 10/18/16 04:34 62 16 142/92 H 97 10/18/16 03:27 60 16 145/87 95 10/18/16 02:27 97.7 F 68 18 182/90 H 99 Temperature: Afebrile Blood Pressure: Hypertensive Pulse: Regular Respiratory Rate: Normal Appearance: Positive for: Non-Toxic Pain Distress: None Mental Status: Positive for: Alert and Oriented X 3 - Systems Exam Head: Present: Atraumatic, Normocephalic Pupils: Present: PERRL Conjunctiva: Present: Normal Mouth: Present: Moist Mucous Membranes Respiratory/Chest: Present: Clear to Auscultation, Good Air Exchange. No: Respiratory Distress, Accessory Muscle Use Cardiovascular: Present: Regular Rate and Rhythm, Normal S1, S2. No: Murmurs Abdomen: Present: Normal Bowel Sounds. No: Tenderness, Distention, Peritoneal Signs Back: Present: CVA Tenderness (left CVA tenderness ) Upper Extremity: Present: Normal Inspection. No: Cyanosis, Edema Lower Extremity: Present: Normal Inspection. No: Edema Neurological: Present: GCS=15, CN II-XII Intact, Speech Normal, Motor Func Grossly Intact, Normal Sensory Function Skin: Present: Warm, Dry, Normal Color. No: Rashes Psychiatric: Present: Alert, Oriented x 3, Normal Insight, Normal Concentration Medical Decision Making ED Course and Treatment: 10/18/16 02:52 Impression: A 61 year old male who presents to the emergency department complaining of LLQ abdominal pain and flank pain for 3 weeks. Plan: -- CT abdomen pelvis -- Labs -- IV fluids -- Toradol -- Zofran -- Urinalysis -- Reassess and disposition Progress Notes: 10/18/16 03:57 CT abdomen pelvis reviewed: IMPRESSION: Moderate left-sided hydroureteronephrosis secondary to 4 mm stone in the distal left ureter. 10/18/16 05:47 On reevaluation, patient states that pain has improved markedly. Patient is stable for discharge. Advised to follow up outpatient at 's office later today. Advised to present to emergency department for new/worsening symptoms. Patient aware and agrees with plan. - Lab Interpretations Lab Results: 10/18/16 02:45 10/18/16 02:45 Lab Results 10/18/16 03:30: Urine Color Yellow, Urine Appearance Slight-cloudy, Urine pH 6.0 , Ur Specific [place] >= 1.030, Urine Protein Trace H, Urine Glucose (UA) Negative, Urine Ketones Negative, Urine Blood Negative, Urine Nitrate Negative, Urine Bilirubin Negative, Urine Urobilinogen 0.2, Ur Leukocyte Esterase Negative , Urine RBC 0 - 2, Urine WBC 0 - 2, Ur Epithelial Cells 0 - 2 10/18/16 02:45: Sodium 139, Potassium 4.3, Chloride 101, Carbon Dioxide 25, Anion Gap 17, BUN 27 H, Creatinine 1.3, Est GFR ( Amer) > 60, Est GFR ( Non-Af Amer) 57, Random Glucose 136 H, Calcium 9.5, Total Bilirubin 0.6, AST 26 , ALT 28, Alkaline Phosphatase 91, Total Protein 7.6, Albumin 4.4, Globulin 3.2 , Albumin/Globulin Ratio 1.4 10/18/16 02:45: WBC 11.2 H, RBC 5.41, Hgb 15.9, Hct 44.7, MCV 82.6, MCH 29.4, MCHC 35.6, RDW 12.8, Plt Count 198, MPV 10.4, Gran % 53.8, Lymph % (Auto) 37.7 H , [place] % (Auto) 6.6 H, Eos % (Auto) 1.6, Baso % (Auto) 0.3, Gran # 6.01, Lymph # 4.2 H, [place] # 0.7 H, Eos # 0.2, Baso # 0.03 I have reviewed the lab results: Yes - RAD Interpretation Narrative RAD Interpretations (Text): EXAM: CT Abdomen and Pelvis Without Intravenous Contrast FINDINGS: Lower thorax: Bibasilar atelectasis, unchanged. ABDOMEN: Liver: No acute findings Gallbladder and bile ducts: No acute finding. No calcified stones. No intra- extrahepatic biliary ductal dilation. Pancreas: Limited evaluation secondary to the lack of intravenous contrast. Spleen: No acute findings. Adrenals: No acute findings. Kidneys and ureters: Moderate left-sided hydroureteronephrosis extending to the distal left ureter where a 4 mm stone is identified. Multiple left-sided nonobstructing renal calculi. Since the prior examination, increased left-sided perinephric stranding, with interval cortical thinning. PELVIS: Bladder: Decompressed, limiting its evaluation. Reproductive: No acute findings. Appendix: The air filled appendix is of normal-caliber (series 2, image 137). ABDOMEN and PELVIS: Stomach and bowel: No acute findings. Peritoneum: No acute findings. Lymph nodes: Limited evaluation without intravenous contrast. Vasculature: No aortic aneurysm. Bones: No acute fracture. IMPRESSION: Moderate left-sided hydroureteronephrosis secondary to 4 mm stone in the distal left ureter. 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 - Medication Orders Current Medication Orders: Sodium Chloride (Sodium Chloride 0.9%) 1,000 mls @ 100 mls/hr IV .Q10H STA Stop: 10/18/16 12:43 Last Admin: 10/18/16 03:01 Dose: 100 mls/hr Discontinued Medications Ketorolac Tromethamine (Toradol) 30 mg IVP STAT STA Stop: 10/18/16 02:45 Last Admin: 10/18/16 03:00 Dose: 30 mg Ketorolac Tromethamine (Toradol) 30 mg IVP ONCE ONE Stop: 10/18/16 04:29 Last Admin: 10/18/16 04:31 Dose: 30 mg Ondansetron HCl (Zofran Inj) 4 mg IVP STAT STA Stop: 10/18/16 02:45 Last Admin: 10/18/16 02:59 Dose: 4 mg - Scribe Statement The provider has reviewed the documentation as recorded by the Jomar Burgos Provider Attestation: All medical record entries made by the Jomar were at my direction and personally dictated by me. I have reviewed the chart and agree that the record accurately reflects my personal performance of the history, physical exam, medical decision making, and the department course for this patient. I have also personally directed, reviewed, and agree with the discharge instructions and disposition. Disposition/Present on Arrival - Present on Arrival History of DVT/PE: No History of Uncontrolled Diabetes: No Urinary Catheter: No History of Decub. Ulcer: No History Surgical Site Infection Following: None - Disposition Diagnosis: Renal colic on left side Disposition: HOME/ ROUTINE Patient Problems: Current Active Problems Problem Status Onset Renal colic on left side Acute Discharge Instructions (ExitCare): Renal Colic (ED) Additional Instructions: call dr cameron office today Prescriptions: Ciprofloxacin [Cipro] 500 mg PO BID #14 tab Tamsulosin [Flomax] 0.4 mg PO DAILY #10 cap oxyCODONE/Acetaminophen [Percocet 5/325 mg Tab] 1 ea PO Q6 PRN #10 tab PRN Reason: Pain, Severe (8-10) Referrals: Randall Marti MD [Primary Care Provider] - Follow up with primary Go Cameron MD [Staff Provider] - Follow up with primary Forms: [employer] (French)
[2016-10-18 03:07] LABS: BASO # 0.03 K/mm3 (0.0-2.0); BASO % 0.3 % (0.0-3.0); EOS # 0.2 (0.0-0.7); EOS % 1.6 % (1.5-5.0); GRAN # 6.01 (1.4-6.5); GRAN % 53.8 % (50.0-68.0); HEMATOCRIT 44.7 % (42.0-52.0); LYMPH # 4.2 (1.2-3.4); LYMPH % 37.7 % (22.0-35.0); MEAN CELL VOLUME 82.6 fl (80.0-105.0); MEAN CORPUSCULAR HEMOGLOBIN 29.4 pg (25.0-35.0); MEAN CORPUSCULAR HGB CONC 35.6 g/dl (31.0-37.0); MEAN PLATELET VOLUME 10.4 fl (7.0-11.0); MONO # 0.7 (0.1-0.6); MONO % 6.6 % (1.0-6.0); RED CELL DISTRIBUTION WIDTH 12.8 % (11.5-14.5); WHITE BLOOD COUNT 11.2 10^3/ul (4.5-11.0)
[2016-10-18 03:13] LABS: ALB/GLOB RATIO 1.4 (1.1-1.8); ALKALINE PHOSPHATASE 91 U/L (38-126); ALT/SGPT 28 U/L (7-56); AST/SGOT 26 U/L (17-59); BILIRUBIN,TOTAL 0.6 mg/dL (0.2-1.3); BLOOD UREA NITROGEN 27 mg/dL (7-21); CALCIUM 9.5 mg/dL (8.4-10.5); CARBON DIOXIDE 25 mmol/L (21-33); CHLORIDE 101 mmol/L (98-107); GFR AFRICAN-AMERICAN > 60; GLUCOSE,RANDOM 136 mg/dL (70-110); POTASSIUM 4.3 mmol/L (3.6-5.0); SODIUM 139 mmol/L (132-148); TOTAL PROTEIN 7.6 g/dL (5.8-8.3)
[2016-10-18 03:27] VITALS: RESP 16
--- NOTE | 2016-10-18 03:49 | CT ---
EXAM: CT Abdomen and Pelvis Without Intravenous Contrast CLINICAL HISTORY: 61 years old, male; Pain; Abdominal pain; Flank; Left lower quadrant (llq); Additional info: Llq pain TECHNIQUE: Axial computed tomography images of the abdomen and pelvis without intravenous contrast. All CT scans at this facility use one or more dose reduction techniques, viz.: automated exposure control; ma/kV adjustment per patient size (including targeted exams where dose is matched to indication; i.e. head); or iterative reconstruction technique. Coronal and sagittal reformatted images were created and reviewed. COMPARISON: CT - ABD PELVIS W/O PO OR IV CONT 09/22/2016 6:56:43 PM FINDINGS: Lower thorax: Bibasilar atelectasis, unchanged. ABDOMEN: Liver: No acute findings Gallbladder and bile ducts: No acute finding. No calcified stones. No intra-extrahepatic biliary ductal dilation. Pancreas: Limited evaluation secondary to the lack of intravenous contrast. Spleen: No acute findings. Adrenals: No acute findings. Kidneys and ureters: Moderate left-sided hydroureteronephrosis extending to the distal left ureter where a 4 mm stone is identified. Multiple left-sided nonobstructing renal calculi. Since the prior examination, increased left-sided perinephric stranding, with interval cortical thinning. PELVIS: Bladder: Decompressed, limiting its evaluation. Reproductive: No acute findings. Appendix: The air filled appendix is of normal-caliber (series 2, image 137). ABDOMEN and PELVIS: Stomach and bowel: No acute findings. Peritoneum: No acute findings. Lymph nodes: Limited evaluation without intravenous contrast. Vasculature: No aortic aneurysm. Bones: No acute fracture. IMPRESSION: Moderate left-sided hydroureteronephrosis secondary to 4 mm stone in the distal left ureter.
[2016-10-18 03:53] LABS: URINE BILIRUBIN NEGATIVE (NEGATIVE); URINE BLOOD NEGATIVE (NEGATIVE); URINE GLUCOSE (UA) NEGATIVE (NEGATIVE); URINE KETONE NEGATIVE (NEGATIVE); URINE LEUKOCYTE ESTERASE NEGATIVE Leu/uL (NEGATIVE); URINE PROTEIN TRACE mg/dL (<30 mg/dL); URINE UROBILINOGEN 0.2 E.U./dL (<1 E.U./dL)
[2016-10-18 03:55] LABS: URINE APPEARANCE SLIGHT-CLOUDY (CLEAR); URINE COLOR YELLOW (YELLOW)
[2016-10-18 04:21] LABS: URINE EPITHELIAL CELLS 0 - 2 /hpf (0-5); URINE RBC 0 - 2 /hpf (0-2); URINE WBC 0 - 2 /hpf (0-6)
[2016-10-18 06:02] VITALS: BP 141/88; PULSE 76; O2SAT 98
== END 2016-10-18 06:09 | disposition home or self-care (01) ==
LOC: ED 02:21
DX: N23 Unspecified renal colic (principal)
CPT/HCPCS: 74176; 80053; 81001; 85025; 96374; 96375; 96376; 99284; J1885; J2405; J7040

== ENCOUNTER 2016-11-04 17:39 | Emergency (ER) | payer MEDICAID ==
[2016-11-04 17:52] VITALS: BMI 34.0
[2016-11-04] MEDS ORDERED: Sodium Chloride 0.9% 1,000 ML IV STA (17:59)
[2016-11-04 18:03] VITALS: TEMP 98
--- NOTE | 2016-11-04 18:15 | ED PDOC ---
Arrival/HPI - General Chief Complaint: Back Pain Time Seen by Provider: 11/04/16 17:57 Historian: Patient - History of Present Illness Narrative History of Present Illness (Text): 11/04/16 18:09 A 61 year old male whose past medical history includes hypertension, CAD, COPD, diabetes, and GERD, presents to the emergency department with left flank pain radiating to the left groin with associated vomiting since this morning. The patient states that he has been diagnosed with kidney stones, and that the symptoms are similar to that of the kidney stones. He states that he was in the emergency department 2 weeks ago and that he was discharged home after resolution of pain in emergency department; however, states symptoms have recurred since. The patient denies fevers, chills, headache, dizziness, chest pain, shortness of breath, dyspnea on exertion, cough, diarrhea, neck pain, urinary/bowel changes, or any other complaint. Time/Duration: Other (This Morning) Symptom Onset: Sudden Symptom Course: Unchanged Activities at Onset: Rest, Light Context: Home Past Medical History - Provider Review Nursing Documentation Reviewed: Yes - Infectious Disease Hx of Infectious Diseases: None - Cardiac Hx Hypertension: Yes Other/Comment: CAD,5 stents - Pulmonary Hx Chronic Obstructive Pulmonary Disease (COPD): Yes - Neurological Other/Comment: h/o Shingles - HEENT Hx HEENT Disorder: No - Renal Hx Kidney Stones: Yes - Endocrine/Metabolic Hx Endocrine Disorders: Yes Hx Diabetes Mellitus Type 2: Yes - Hematological/Oncological Hx Blood Disorders: No Hx Blood Transfusions: No Hx Blood Transfusion Reaction: No - Integumentary Other/Comment: H/O Shingles - Musculoskeletal/Rheumatological Hx Musculoskeletal Disorders: No Hx Falls: No - Gastrointestinal Hx Gastrointestinal Disorders: Yes Hx Gastroesophageal Reflux: Yes - Genitourinary/Gynecological Hx Genitourinary Disorders: No - Psychiatric Hx Psychophysiologic Disorder: No Hx Depression: No Hx Emotional Abuse: No Hx Physical Abuse: No Hx Substance Use: No - Surgical History Hx Cardiac Catheterization: Yes Hx Coronary Stent: Yes (x 5) Other/Comment: CARDIAC CATH X 3 STENTS - Anesthesia Hx Anesthesia: Yes Hx Anesthesia Reactions: No Hx Malignant Hyperthermia: No - Suicidal Assessment Feels Threatened In Home Enviroment: No Family/Social History - Physician Review Nursing Documentation Reviewed: Yes Family/Social History: No Known Family HX Smoking Status: Former Smoker Hx Alcohol Use: No Hx Substance Use: No Hx Substance Use Treatment: No Allergies/Home Meds Allergies/Adverse Reactions: Allergies apple Allergy (Verified 08/17/16 03:30) RASH peach Allergy (Verified 08/16/16 09:32) SWELLING pear Allergy (Verified 08/16/16 09:32) SWELLING Home Medications: Home Meds Medication Instructions Recorded Confirmed Multivit,Iron,Min 5/Folic Acid 1 tab PO DAILY 02/17/15 11/04/16 [Strovite Forte Caplet] Metformin HCl [Glucophage] 500 mg PO DAILY 05/01/15 11/04/16 Aspirin [Adult Low Dose Aspirin EC] 81 mg PO DAILY 06/20/16 11/04/16 Fenofibrate,Micronized 130 mg PO DAILY 06/20/16 11/04/16 [Fenofibrate] Metoprolol Tartrate [Lopressor] 50 mg PO DAILY 06/20/16 11/04/16 Simvastatin 20 mg PO DAILY 06/20/16 11/04/16 Valsartan [Diovan] 160 mg PO DAILY 06/20/16 11/04/16 Gabapentin 300 mg PO TID 08/17/16 11/04/16 Review of Systems - Physician Review All systems were reviewed & negative as marked: Yes - Review of Systems Constitutional: absent: Fevers, Night Sweats Respiratory: absent: SOB, Cough Cardiovascular: absent: Chest Pain Gastrointestinal: Abdominal Pain (LLQ), Vomiting. absent: Stool Changes, Diarrhea Genitourinary Male: absent: Urinary Output Changes Musculoskeletal: Back Pain (Left Flank Pain) Neurological: absent: Headache, Dizziness Physical Exam - Physical Exam Narrative Physical Exam (Text): 11/04/16 18:17 Constitutional: In distress secondary to pain. Head: Normocephalic. Atraumatic. Eyes: PERRL. ENT: Moist mucous membranes. Neck: Supple. Cardiovascular: Regular rate. Chest: No tenderness. Respiratory: Clear to auscultation bilaterally. GI: Soft. Nontender. Nondistended. Back: No CVA tenderness. Musculoskeletal: No tenderness or swelling of extremities. Skin: No rash. Neurologic: Alert, no focal deficit. Vital Signs Reviewed: Yes Vital Signs Temp Pulse Resp BP Pulse Ox 11/04/16 18:02 98 F 66 18 173/98 H 98 11/04/16 17:49 97.9 F 62 18 176/97 H 97 Temperature: Afebrile Blood Pressure: Hypertensive Pulse: Regular Respiratory Rate: Normal Appearance: Positive for: Well-Appearing, Non-Toxic, Comfortable Pain Distress: Mild (Patient in distress secondary to pain.) Mental Status: Positive for: Alert and Oriented X 3 Medical Decision Making ED Course and Treatment: 11/04/16 18:17 Impression: A 61 year old male presents with left flank pain radiating to he left groin since this morning with associated vomiting. Plan: -- Abdomen/Pelvis CT -- Urinalysis -- Labs -- Toradol, Zofran, and IV Fluids -- Reassess and disposition Prior Visits: Notes and results from previous visits were reviewed. Patient was last seen in the emergency department on 10/18/16 for left flank pain and left lower quadrant abdominal pain with nausea. He was discharged home after resolution of pain in emergency department. Progress Notes: CT Abdomen and Pelvis Without Intravenous Contrast CLINICAL HISTORY: 61 years old, male; Pain; Abdominal pain; Flank; Left; Patient HX: HX of lt kidney stones; Additional info: L flank pain TECHNIQUE: Axial computed tomography images of the abdomen and pelvis without intravenous contrast. All CT scans at this facility use one or more dose reduction techniques, viz.: automated exposure control; ma/kV adjustment per patient size (including targeted exams where dose is matched to indication; i.e. head); or iterative reconstruction technique. Coronal and sagittal reformatted images were created and reviewed. COMPARISON: CT - ABD PELVIS W/O PO OR IV CONT 10/18/2016 3:10:03 AM FINDINGS: Lower thorax: Minimal atelectasis/scarring. ABDOMEN: Liver: Unremarkable. Gallbladder and bile ducts: Tiny gallstone or wall calcification. No ductal dilation. Pancreas: Unremarkable. No ductal dilation. Spleen: Mild splenomegaly, AP dimension. Adrenals: No mass. Kidneys and ureters: Moderate stranding about LEFT kidney. Few small calculi within LEFT kidney. [id number]-[id number] pelvocaliectasis of LEFT kidney. Mild to moderately dilated LEFT ureter. 0.3 x 0.3 x 0.5 cm calculus within LEFT distal ureter. Stomach and bowel: Few scattered diverticula within colon. No associated inflammatory stranding. No definite mural thickening. No obstruction. Appendix: Normal caliber. No inflammation. PELVIS: Bladder: Minimal haziness about bladder. No stones. Reproductive: Enlarged prostate gland. ABDOMEN and PELVIS: Intraperitoneal space: No significant fluid collection. No free air. Bones/joints: Mild degenerative changes of hips and spine. No acute fracture. Soft tissues: Unremarkable. Vasculature: Mild atherosclerotic disease. No aneurysm. Lymph nodes: No pathologically enlarged lymph nodes. IMPRESSION: 1. LEFT distal ureteral calculus with [id number] hydroureteronephrosis. 2. Minimal haziness about bladder. Correlate with urinalysis to exclude infection. 3. Incidental/non-acute findings are described above. Dictated and Authenticated by: Naresh Marinelli MD 11/04/2016 8:48 PM Eastern Time ([place] & Jan) 11/04/16 21:12 Patient improved after ED treatment. Patient with urology follow up on Monday. Will discharge. 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 Each ED visit with a different calculus causing renal colic. - Lab Interpretations Lab Results: 11/04/16 18:50 11/04/16 18:50 Lab Results 11/04/16 18:50: Sodium 139, Potassium 3.9, Chloride 104, Carbon Dioxide 24, Anion Gap 15, BUN 27 H, Creatinine 1.5 H, Est GFR ( Amer) 58, Est GFR ( Non-Af Amer) 48, Random Glucose 140 H, Calcium 9.2, Total Bilirubin 0.6, AST 27 , ALT 31, Alkaline Phosphatase 81, Total Protein 7.5, Albumin 4.3, Globulin 3.2 , Albumin/Globulin Ratio 1.3 11/04/16 18:50: Urine Color Yellow, Urine Appearance Clear, Urine pH 5.5, Ur Specific [place] >= 1.030, Urine Protein 30 H, Urine Glucose (UA) Negative, Urine Ketones Negative, Urine Blood Moderate H, Urine Nitrate Negative, Urine Bilirubin Negative, Urine Urobilinogen 0.2, Ur Leukocyte Esterase Negative, Urine RBC 2 - 5, Urine WBC 0 - 2, Ur Epithelial Cells 0 - 2, Calcium Oxalate Crystal Rare 11/04/16 18:50: WBC 12.8 H, RBC 5.44, Hgb 16.1, Hct 45.1, MCV 82.9, MCH 29.6, MCHC 35.7, RDW 12.8, Plt Count 222, MPV 10.7, Gran % 68.6 H, Lymph % (Auto) 20.8 L, [place] % (Auto) 9.1 H, Eos % (Auto) 1.3 L, Baso % (Auto) 0.2, Gran # 8.79 H, Lymph # 2.7, [place] # 1.2 H, Eos # 0.2, Baso # 0.03 I have reviewed the lab results: Yes - RAD Interpretation Radiology Orders: 11/04/16 18:00 ABD & PELVIS W/O PO OR IV CONT [CT] Stat - Medication Orders Current Medication Orders: Discontinued Medications Sodium Chloride (Sodium Chloride 0.9%) 1,000 mls @ 999 mls/hr IV .Q1H1M STA Stop: 11/04/16 18:59 Last Admin: 11/04/16 18:41 Dose: 999 mls/hr eMAR Start Stop Document 11/04/16 18:41 [facility] (Rec: 11/04/16 18:41 [id number] Intravenous Solution Start Date 11/04/16 Start Time 18:41 Ketorolac Tromethamine (Toradol) 30 mg IVP STAT STA Stop: 11/04/16 18:00 Last Admin: 11/04/16 18:39 Dose: 30 mg MAR Pain Assessment Document 11/04/16 18:39 NH (Rec: 11/04/16 18:40 [id number] Pain Reassessment Is this a pain reassessment? No Sleep Is patient sleeping during reassessment? No Presence of Pain Presence of Pain Yes Pain Scale Used Pain Scale Used Numeric Location Left, Right or Bilateral Left Pain Location Body Site Abdomen Description Description Constant Intensity of Pain at present 10 Acceptable Level of Pain 2 Pain Behavior Rubbing Site Facial Grimacing IVP Administration Document 11/04/16 18:39 NH (Rec: 11/04/16 18:40 [id number] Charges for Administration # of IVP Administrations 1 Morphine Sulfate (Morphine) 4 mg IVP STAT STA Stop: 11/04/16 19:33 Last Admin: 11/04/16 20:32 Dose: 4 mg MAR Pain Assessment Document 11/04/16 20:32 [place] (Rec: 11/04/16 20:32 [id number] Pain Reassessment Is this a pain reassessment? Yes Sleep Is patient sleeping during reassessment? No Presence of Pain Presence of Pain Yes Pain Scale Used Pain Scale Used Numeric Description Intensity of Pain at present 10 IVP Administration Document 11/04/16 20:32 [place] (Rec: 11/04/16 20:32 [facility] [id number]) Charges for Administration # of IVP Administrations 1 Ondansetron HCl (Zofran Inj) 8 mg IVP STAT STA Stop: 11/04/16 18:00 Last Admin: 11/04/16 18:41 Dose: 8 mg IVP Administration Document 11/04/16 18:41 [facility] (Rec: 11/04/16 18:41 [facility] [id number]) Charges for Administration # of IVP Administrations 1 Tamsulosin HCl (Flomax) 0.4 mg PO STAT STA Stop: 11/04/16 21:06 - Scribe Statement The provider has reviewed the documentation as recorded by the Jomar Palmer Provider Scribe Attestation: All medical record entries made by the Scribe were at my direction and personally dictated by me. I have reviewed the chart and agree that the record accurately reflects my personal performance of the history, physical exam, medical decision making, and the department course for this patient. I have also personally directed, reviewed, and agree with the discharge instructions and disposition. Disposition/Present on Arrival - Present on Arrival Any Indicators Present on Arrival: No History of DVT/PE: No History of Uncontrolled Diabetes: No Urinary Catheter: No History of Decub. Ulcer: No History Surgical Site Infection Following: None - Disposition Have Diagnosis and Disposition been Completed?: Yes Diagnosis: Kidney stone Disposition: HOME/ ROUTINE Disposition Time: 20:48 Patient Plan: Discharge Patient Problems: Current Active Problems Problem Status Onset Kidney stone Acute Condition: STABLE Discharge Instructions (ExitCare): Kidney Stones (ED) Prescriptions: Ibuprofen [Motrin] 600 mg PO Q6 #25 tab Ondansetron ODT [Zofran ODT] 4 mg PO Q8 #12 odt oxyCODONE/Acetaminophen [Percocet 5/325 mg Tab] 1 tab PO Q6 #10 tab Tamsulosin [Flomax] 0.4 mg PO DAILY #5 cap Referrals: Roland Jama Jr., MD [Staff Provider] - Follow up with primary Forms: [employer] ([place])
[2016-11-04 19:15] LABS: BASO # 0.03 K/mm3 (0.0-2.0); BASO % 0.2 % (0.0-3.0); EOS # 0.2 (0.0-0.7); EOS % 1.3 % (1.5-5.0); GRAN # 8.79 (1.4-6.5); GRAN % 68.6 % (50.0-68.0); HEMATOCRIT 45.1 % (42.0-52.0); LYMPH # 2.7 (1.2-3.4); LYMPH % 20.8 % (22.0-35.0); MEAN CELL VOLUME 82.9 fl (80.0-105.0); MEAN CORPUSCULAR HEMOGLOBIN 29.6 pg (25.0-35.0); MEAN CORPUSCULAR HGB CONC 35.7 g/dl (31.0-37.0); MEAN PLATELET VOLUME 10.7 fl (7.0-11.0); MONO # 1.2 (0.1-0.6); MONO % 9.1 % (1.0-6.0); PH,URINE 5.5 (4.7-8.0); RED CELL DISTRIBUTION WIDTH 12.8 % (11.5-14.5); URINE BILIRUBIN NEGATIVE (NEGATIVE); URINE BLOOD MODERATE (NEGATIVE); URINE GLUCOSE (UA) NEGATIVE (NEGATIVE); URINE KETONE NEGATIVE (NEGATIVE); URINE LEUKOCYTE ESTERASE NEGATIVE Leu/uL (NEGATIVE); URINE PROTEIN 30 mg/dL (<30 mg/dL); URINE UROBILINOGEN 0.2 E.U./dL (<1 E.U./dL); WHITE BLOOD COUNT 12.8 10^3/ul (4.5-11.0)
[2016-11-04 19:18] LABS: URINE APPEARANCE CLEAR (CLEAR); URINE COLOR YELLOW (YELLOW)
[2016-11-04 19:21] LABS: URINE WBC 0 - 2 /hpf (0-6)
[2016-11-04 19:22] LABS: URINE CALCIUM OXALATE CRYSTALS RARE /hpf; URINE EPITHELIAL CELLS 0 - 2 /hpf (0-5)
[2016-11-04 19:24] LABS: ALB/GLOB RATIO 1.3 (1.1-1.8); BILIRUBIN,TOTAL 0.6 mg/dL (0.2-1.3); CALCIUM 9.2 mg/dL (8.4-10.5); POTASSIUM 3.9 mmol/L (3.6-5.0); TOTAL PROTEIN 7.5 g/dL (5.8-8.3)
[2016-11-04] MEDS ORDERED: Morphine 4 mg/ml ISec IVP STA (19:32)
--- NOTE | 2016-11-04 20:48 | CT ---
EXAM: CT Abdomen and Pelvis Without Intravenous Contrast CLINICAL HISTORY: 61 years old, male; Pain; Abdominal pain; Flank; Left; Patient HX: HX of lt kidney stones; Additional info: L flank pain TECHNIQUE: Axial computed tomography images of the abdomen and pelvis without intravenous contrast. All CT scans at this facility use one or more dose reduction techniques, viz.: automated exposure control; ma/kV adjustment per patient size (including targeted exams where dose is matched to indication; i.e. head); or iterative reconstruction technique. Coronal and sagittal reformatted images were created and reviewed. COMPARISON: CT - ABD PELVIS W/O PO OR IV CONT 10/18/2016 3:10:03 AM FINDINGS: Lower thorax: Minimal atelectasis/scarring. ABDOMEN: Liver: Unremarkable. Gallbladder and bile ducts: Tiny gallstone or wall calcification. No ductal dilation. Pancreas: Unremarkable. No ductal dilation. Spleen: Mild splenomegaly, AP dimension. Adrenals: No mass. Kidneys and ureters: Moderate stranding about LEFT kidney. Few small calculi within LEFT kidney. [id number]-[id number] pelvocaliectasis of LEFT kidney. Mild to moderately dilated LEFT ureter. 0.3 x 0.3 x 0.5 cm calculus within LEFT distal ureter. Stomach and bowel: Few scattered diverticula within colon. No associated inflammatory stranding. No definite mural thickening. No obstruction. Appendix: Normal caliber. No inflammation. PELVIS: Bladder: Minimal haziness about bladder. No stones. Reproductive: Enlarged prostate gland. ABDOMEN and PELVIS: Intraperitoneal space: No significant fluid collection. No free air. Bones/joints: Mild degenerative changes of hips and spine. No acute fracture. Soft tissues: Unremarkable. Vasculature: Mild atherosclerotic disease. No aneurysm. Lymph nodes: No pathologically enlarged lymph nodes. IMPRESSION: 1. LEFT distal ureteral calculus with [id number] hydroureteronephrosis. 2. Minimal haziness about bladder. Correlate with urinalysis to exclude infection. 3. Incidental/non-acute findings are described above.
[2016-11-04 21:28] VITALS: BP 156/90; PULSE 80; RESP 16; O2SAT 99
== END 2016-11-04 21:32 | disposition home or self-care (01) ==
LOC: ED 17:39
DX: N20.0 Calculus of kidney (principal); I10 Essential (primary) hypertension; E11.9 Type 2 diabetes mellitus without complications; Z95.5 Presence of coronary angioplasty implant and graft; Z87.891 Personal history of nicotine dependence
CPT/HCPCS: 74176; 80053; 81001; 85025; 96374; 96375; 99284; J1885; J2270; J2405; J7040

== ENCOUNTER 2017-05-16 07:48 | Day surgery (SDC) | payer MEDICAID ==
[2017-05-08 08:59] VITALS: BMI 36.3
[2017-05-16] MEDS ORDERED: Propofol 10 mg/ml Inj (20 ML) ONE (09:15)
[2017-05-16] MEDS ORDERED: Esmolol 100 mg/10ml Inj IV ONE (09:15)
[2017-05-16] MEDS ORDERED: Midazolam 2 MG/2 ML VIAL ONE (09:15)
[2017-05-16] MEDS ORDERED: ePHEDrine 50 mg/ml Inj ONE (09:23)
[2017-05-16] MEDS ORDERED: Sodium Chloride 0.9% 1,000 ML IV SCH (10:15)
[2017-05-16 11:00] VITALS: BP 116/77; PULSE 63; RESP 17; TEMP 97.7; O2SAT 99
--- NOTE | 2017-05-16 19:21 | CARD ---
APPROVED REPORT EKG Measurement Heart [id number] MI [id number] <Conclusion> Sinus rhythm with 1st degree AV block Otherwise normal ECG
== END 2017-05-16 11:37 | disposition home or self-care (01) ==
LOC: ENDO 07:48
PROVIDERS: ATTEND Internal Medicine
DX: D12.4 Benign neoplasm of descending colon (principal); K57.30 Diverticulosis of large intestine without perforation or abscess without bleeding; K64.8 Other hemorrhoids; K21.9 Gastro-esophageal reflux disease without esophagitis; I10 Essential (primary) hypertension; E78.00 Pure hypercholesterolemia, unspecified; E11.9 Type 2 diabetes mellitus without complications; Z87.442 Personal history of urinary calculi; Z87.891 Personal history of nicotine dependence; R19.7 Diarrhea, unspecified; K29.50 Unspecified chronic gastritis without bleeding
CPT/HCPCS: 43239; 45380; 82948; 88305; 88342; 93005; J2250; J2704; J3010; J7040 ×2

== ENCOUNTER 2017-11-16 19:07 | Inpatient (IN) | payer MEDICAID ==
[2017-11-16 19:07] VITALS: BMI 36.3
[2017-11-16 20:13] LABS: BASO # 0.03 K/mm3 (0.0-2.0); BASO % 0.3 % (0.0-3.0); EOS # 0.3 (0.0-0.7); EOS % 2.8 % (1.5-5.0); GRAN # 4.35 (1.4-6.5); GRAN % 45.5 % (50.0-68.0); HEMOGLOBIN 14.4 g/dL (14.0-18.0); LYMPH # 4.3 (1.2-3.4); LYMPH % 44.8 % (22.0-35.0); MEAN CELL VOLUME 83.9 fl (80.0-105.0); MEAN CORPUSCULAR HEMOGLOBIN 28.6 pg (25.0-35.0); MEAN CORPUSCULAR HGB CONC 34.1 g/dl (31.0-37.0); MEAN PLATELET VOLUME 10.9 fl (7.0-11.0); MONO # 0.6 (0.1-0.6); MONO % 6.6 % (1.0-6.0); RBC 5.03 10^6/uL (3.5-6.1); RED CELL DISTRIBUTION WIDTH 12.8 % (11.5-14.5); WHITE BLOOD COUNT 9.6 10^3/ul (4.5-11.0)
[2017-11-16 21:35] LABS: ALB/GLOB RATIO 1.3 (1.1-1.8); ALBUMIN 4.4 g/dL (3.0-4.8); ALT/SGPT 28 U/L (7-56); AST/SGOT 25 U/L (17-59); BLOOD UREA NITROGEN 22 mg/dL (7-21); CALCIUM 9.8 mg/dL (8.4-10.5); GFR NON-AFRICAN AMERICAN > 60; INR 0.97; PARTIAL THROMBOPLASTIN TIME 28.2 Seconds (25.1-36.5); PROTHROMBIN TIME 11.1 SECONDS (9.4-12.5); TROPONIN I < 0.01 ng/mL
--- NOTE | 2017-11-16 21:51 | ED PDOC ---
Arrival/HPI - General Chief Complaint: Chest Pain Time Seen by Provider: 11/16/17 19:57 Historian: Patient - History of Present Illness Narrative History of Present Illness (Text): 11/16/17 21:48 62 yo M w/ PMH of includes hypertension, CAD, COPD, [place], with 5 cardiac stents, diabetes, and GERD, presents to the emergency department with L sided intermittent pressure like CP associated with SOB, mostly occuring with exertion, and better with rest. States that he takes asa daily and took a dose earlier. Reports no chest pain at this time. Otherwise: (-) radiation, (-) diaphoresis, (-) dyspnea, (-) pleuritic component, (-) ripping or tearing quality, (-) positional component, (+) exertional component, (-) dizziness, (-) syncope, (-) nausea, (-) vomiting, (-) calf swelling/pain, (-) neuro deficits, (-) recent travel, (-) leg pain / swelling. PMD Mackenzie Dewey Past Medical History - Infectious Disease Hx of Infectious Diseases: None - Cardiac Hx Cardiac Disorders: Yes Hx Hypertension: Yes - Pulmonary Hx Respiratory Disorders: Yes Hx Chronic Obstructive Pulmonary Disease (COPD): Yes - Neurological Hx Neurological Disorder: No - HEENT Hx HEENT Disorder: No - Renal Hx Renal Disorder: Yes Hx Kidney Stones: Yes - Endocrine/Metabolic Hx Endocrine Disorders: Yes Hx Diabetes Mellitus Type 2: Yes - Hematological/Oncological Hx Blood Transfusions: No - Integumentary Hx Dermatological Disorder: No - Musculoskeletal/Rheumatological Hx Musculoskeletal Disorders: No - Gastrointestinal Hx Gastrointestinal Disorders: Yes Hx Constipation: Yes Hx Gastroesophageal Reflux: Yes - Genitourinary/Gynecological Hx Genitourinary Disorders: Yes - Psychiatric Hx Psychophysiologic Disorder: No Hx Substance Use: No - Surgical History Hx Coronary Stent: Yes - Anesthesia Hx Anesthesia Reactions: No Hx Malignant Hyperthermia: No - Suicidal Assessment Feels Threatened In Home Enviroment: No Family/Social History Family/Social History: Unknown Family HX Smoking Status: Never Smoked Hx Alcohol Use: No Hx Substance Use: No Hx Substance Use Treatment: No Allergies/Home Meds Allergies/Adverse Reactions: Allergies apple Allergy (Verified 11/16/17 19:17) RASH FACIAL SWELLING peach Allergy (Verified 11/16/17 19:17) SWELLING pear Allergy (Verified 11/16/17 19:17) SWELLING Home Medications: Home Meds Medication Instructions Recorded Confirmed Multivit,Iron,Min 5/Folic Acid 1 tab PO DAILY 02/17/15 11/16/17 [Strovite Forte Caplet] Aspirin [Adult Low Dose Aspirin EC] 81 mg PO DAILY 06/20/16 11/16/17 Fenofibrate,Micronized 130 mg PO DAILY 06/20/16 11/16/17 [Fenofibrate] Simvastatin 20 mg PO DAILY 06/20/16 11/16/17 Gabapentin 600 mg PO BID 08/17/16 11/16/17 Metoprolol Succinate XL [Toprol XL] 50 mg PO DAILY 11/23/16 11/16/17 Vitamin B Complex [Super B-50 1 tab PO DAILY 05/08/17 11/16/17 Complex] Alogliptin Alexis/Metformin HCl 1 tab PO BID 11/16/17 11/16/17 [Alogliptin-Metformin 12.5-1000] Losartan [Cozaar] 100 mg PO DAILY 11/16/17 11/16/17 Tramadol HCl [Ultram] 50 mg PO BID 11/16/17 11/16/17 Review of Systems - Review of Systems Constitutional: absent: Fatigue, Fevers ENT: absent: Sore Throat, Sinus Congestion Respiratory: SOB. absent: Cough Cardiovascular: Chest Pain. absent: Palpitations, Edema Gastrointestinal: absent: Abdominal Pain, Diarrhea, Vomiting Genitourinary Male: absent: Dysuria, Frequency, Hematuria Musculoskeletal: absent: Arthralgias, Back Pain, Neck Pain Skin: absent: Rash, Pruritis, Skin Lesions Neurological: absent: Headache, Dizziness Physical Exam - Physical Exam Narrative Physical Exam (Text): 11/16/17 21:52 GENERAL APPEARANCE: Patient is awake, alert, oriented x 3, in no acute distress. SKIN: Warm, dry; (-) cyanosis. EYES: (-) conjunctival pallor. ENMT: Mucous membranes moist. NECK: (-) tenderness, (-) stiffness, (-) lymphadenopathy, (-) JVD. CHEST AND RESPIRATORY: (-) rash, (-) chest wall tenderness. Lungs: (-) rales, (-) rhonchi, (-) wheezes, (-) rub; breath sounds equal bilaterally. HEART AND CARDIOVASCULAR: (-) irregularity; (-) murmur, (-) gallop, (-) rub. ABDOMEN AND GI: Soft; (-) distention, (-) tenderness, (-) palpable pulsatile mass. EXTREMITIES: (-) deformity; (-) edema, (-) calf tenderness. (+) distal pulses. NEURO AND PSYCH: Mental status as above. Cranial nerves grossly intact; strength symmetric. 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 On reevaluation, patient no significant chest pain, reports of mild upper abdominal discomfort, denies any SOB or nausea. On exam, patient remains awake alert and oriented 3 in no acute distress. Neck is supple, lungs are clear to auscultation, cardiac regular rate and rhythm, abdomen soft and nontender, repeat neuro exam shows no focal findings. Diagnostic results d/w the patient in great detail. Based on history, exam and diagnostic results plan will be for tele observation. Case d/w Dr. Oconnor and medical assistant cardiology Dr. Darin Rodarte, agrees with plan for tele obs under the hospitalist service. Patient states he fully agrees with and understands further plan of care and disposition. I have given the patient opportunity to ask any additional questions. - Lab Interpretations Lab Results: 11/16/17 20:07 Lab Results 11/16/17 20:07: PT 11.1, INR 0.97, APTT 28.2 11/16/17 20:07: Sodium 141, Potassium 3.8, Chloride 103, Carbon Dioxide 26, Anion Gap 16, BUN 22 H, Creatinine 1.2, Est GFR ( Amer) > 60, Est GFR (Non-Af Amer) > 60, Random Glucose 131 H, Calcium 9.8, Magnesium 1.9, Total Bilirubin 0.4, AST 25, ALT 28, Alkaline Phosphatase 62, Lactate Dehydrogenase 322 L, Total Creatine Kinase 40, Troponin I < 0.01 D, Total Protein 7.9, Albumin 4.4, Globulin 3.4, Albumin/Globulin Ratio 1.3 - RAD Interpretation Radiology Orders: 11/16/17 20:12 CHEST PORTABLE [RAD] Stat - 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 Disposition/Present on Arrival - Present on Arrival Any Indicators Present on Arrival: No History of DVT/PE: No History of Uncontrolled Diabetes: No Urinary Catheter: No History of Decub. Ulcer: No History Surgical Site Infection Following: None - Disposition Have Diagnosis and Disposition been Completed?: Yes Diagnosis: Chest pain Disposition: HOSPITALIZED Disposition Time: 22:30 Patient Plan: Telemetry (observation) Condition: STABLE
--- NOTE | 2017-11-16 23:06 | CP.PCM.HP ---
History of Present Illness - History of Present Illness History of Present Illness: Cayden Webster PGY1 History and Physical for Dr Frank Oconnor Pt is a 62yo male with a PMH of HTN, CAD, COPD, CO, with 5 cardiac stents, DM, and GERD, presents to the ED with left sided intermittent pressure-like chest pain with associated SOB, mostly occurring with exertion, and relieved with rest. Pt states this pain feels very similar to when he had his stents placed in the past. 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 He reports the pain subsides when he rests for about 20 mins. The pain has worsened over the past 10 days, and occurs with less and less exertion. Pt reports the pain feels like it is "burning like fire" and is 8/10, does not radiate to his jaw or arms. The pain has not mostly subsided now at the time of the interview. Pt states that the pain began today when he was having a bowel movement. A 12 point ROS was obtained and added to the HPI where appropriate. 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 Home meds: as per chart, helped update Allergies: apple, peach, pear: mouth numbness PMD: Dr Mackenzie Crum Cardio: Dr Dewey Present on Admission - Present on Admission Any Indicators Present on Admission: No Review of Systems - Review of Systems Review of Systems: a 12 point ROS was obtained and added to the HPI where appropriate Past Patient History - Infectious Disease Hx of Infectious Diseases: None - Past Medical History & Family History Past Medical History?: Yes - Past Social History Smoking Status: Never Smoked - CARDIAC Hx Cardiac Disorders: Yes Hx Hypertension: Yes - PULMONARY Hx Respiratory Disorders: Yes Hx Chronic Obstructive Pulmonary Disease (COPD): Yes - NEUROLOGICAL Hx Neurological Disorder: No - HEENT Hx HEENT Problems: No - RENAL Hx Chronic Kidney Disease: Yes Hx Kidney Stones: Yes - ENDOCRINE/METABOLIC Hx Endocrine Disorders: Yes Hx Diabetes Mellitus Type 2: Yes - HEMATOLOGICAL/ONCOLOGICAL Hx Blood Transfusions: No - INTEGUMENTARY Hx Dermatological Problems: No - MUSCULOSKELETAL/RHEUMATOLOGICAL Hx Musculoskeletal Disorders: No - GASTROINTESTINAL Hx Gastrointestinal Disorders: Yes Hx Constipation: Yes Hx Gastroesophageal Reflux: Yes - GENITOURINARY/GYNECOLOGICAL Hx Genitourinary Disorders: Yes - PSYCHIATRIC Hx Psychophysiologic Disorder: No Hx Substance Use: No - SURGICAL HISTORY Hx Coronary Stent: Yes - ANESTHESIA Hx Anesthesia Reactions: No Hx Malignant Hyperthermia: No Meds Allergies/Adverse Reactions: Allergies Allergy/AdvReac Type Severity Reaction Status Date / Time apple Allergy RASH Verified 11/16/17 19:17 peach Allergy SWELLING Verified 11/16/17 19:17 pear Allergy SWELLING Verified 11/16/17 19:17 Physical Exam - Constitutional Appears: No Acute Distress Additional comments: pt sitting up, leaning forward, states he feels uncomfortable - Head Exam Head Exam: ATRAUMATIC, NORMOCEPHALIC - ENT Exam ENT Exam: Mucous Membranes Moist - Respiratory Exam Respiratory Exam: Clear to Auscultation Bilateral, NORMAL BREATHING PATTERN. absent: Wheezes - Cardiovascular Exam Cardiovascular Exam: RRR, +S1, +S2 - GI/Abdominal Exam GI & Abdominal Exam: Normal Bowel Sounds, Soft - Extremities Exam Extremities exam: Positive for: full ROM, normal inspection, pedal pulses present - Neurological Exam Neurological exam: Oriented x3 - Psychiatric Exam Psychiatric exam: Normal Affect, Normal Mood - Skin Skin Exam: Dry, Intact, Warm Results - Vital Signs Recent Vital Signs: Last Vital Signs Temp 97.8 F 11/16/17 19:21 Pulse 74 11/16/17 19:21 Resp 17 11/16/17 19:21 BP 127/80 11/16/17 19:21 Pulse Ox 95 11/16/17 19:21 - Labs Result Diagrams: 11/16/17 20:07 11/16/17 20:07 Labs: Laboratory Results - last 24 hr 11/16/17 11/16/17 11/16/17 20:07 20:07 20:07 WBC 9.6 D RBC 5.03 Hgb 14.4 Hct 42.2 MCV 83.9 MCH 28.6 MCHC 34.1 RDW 12.8 Plt Count 245 MPV 10.9 Gran % 45.5 L Lymph % (Auto) 44.8 H Baker % (Auto) 6.6 H Eos % (Auto) 2.8 Baso % (Auto) 0.3 Gran # 4.35 Lymph # (Auto) 4.3 H Baker # (Auto) 0.6 Eos # (Auto) 0.3 Baso # (Auto) 0.03 PT 11.1 INR 0.97 APTT 28.2 Sodium 141 Potassium 3.8 Chloride 103 Carbon Dioxide 26 Anion Gap 16 BUN 22 H Creatinine 1.2 Est GFR ( Amer) > 60 Est GFR (Non-Af Amer) > 60 Random Glucose 131 H Calcium 9.8 Magnesium 1.9 Total Bilirubin 0.4 AST 25 ALT 28 Alkaline Phosphatase 62 Lactate Dehydrogenase 322 L Total Creatine Kinase 40 Troponin I < 0.01 D Total Protein 7.9 Albumin 4.4 Globulin 3.4 Albumin/Globulin Ratio 1.3 Assessment & Plan - Assessment and Plan (Free Text) Assessment: Pt is a 62yo male with a PMH of HTN, CAD, COPD, CO, with 5 cardiac stents, DM, shingles, and GERD, presents to the ED with left sided intermittent pressure- like chest pain with associated SOB, mostly occurring with exertion, and relieved with rest. Plan: Stable angina - TSH - HA1C - EKG: no ST or T wave abnormality, continue to trend q6 - Troponin negative, continue to trend q6 - previous ECHO EF 55% - ECHO ordered - previous myocardial stress test: no abnormalities - admit to Tele - Cardio consulted, Dr Dewey HTN - continue home Losartan - continue home metoprolol DM - ISS med - accuchecks ACHS - hold metformin HLD - continue home simvastatin - Lipid panel Ppx - Lovenox - pepcid Pt seen, examined, assessment and plan discussed with Dr Elvin Webster PGY1 - Date & Time Date: 11/16/17 Time: 23:55
[2017-11-17 07:17] LABS: HDL CHOLESTEROL 35 mg/dL (29-60)
[2017-11-17 07:27] LABS: LDL CHOLESTEROL 76 mg/dL (0-129); TROPONIN I < 0.01 ng/mL
[2017-11-17 07:40] LABS: BASO # 0.02 K/mm3 (0.0-2.0); BASO % 0.2 % (0.0-3.0); EOS # 0.2 (0.0-0.7); EOS % 2.3 % (1.5-5.0); GRAN # 4.23 (1.4-6.5); GRAN % 51.6 % (50.0-68.0); HEMOGLOBIN 13.8 g/dL (14.0-18.0); LYMPH # 3.3 (1.2-3.4); LYMPH % 40.2 % (22.0-35.0); MEAN CELL VOLUME 83.2 fl (80.0-105.0); MEAN CORPUSCULAR HEMOGLOBIN 27.6 pg (25.0-35.0); MEAN CORPUSCULAR HGB CONC 33.2 g/dl (31.0-37.0); MEAN PLATELET VOLUME 10.8 fl (7.0-11.0); MONO # 0.5 (0.1-0.6); MONO % 5.7 % (1.0-6.0); RED CELL DISTRIBUTION WIDTH 12.8 % (11.5-14.5); WHITE BLOOD COUNT 8.2 10^3/ul (4.5-11.0)
[2017-11-17 07:51] LABS: ALB/GLOB RATIO 1.3 (1.1-1.8); ALBUMIN 4.1 g/dL (3.0-4.8); ALT/SGPT 24 U/L (7-56); AST/SGOT 23 U/L (17-59); BLOOD UREA NITROGEN 19 mg/dL (7-21); CALCIUM 9.5 mg/dL (8.4-10.5); GFR NON-AFRICAN AMERICAN > 60
[2017-11-17] MEDS: Insulin Reg-MEDIUM-Coverage SC SCH ×4 (08:10→21:15)
[2017-11-17] MEDS ORDERED: Metoprolol Succinate 50 mg XL Tab PO SCH (10:00)
[2017-11-17] MEDS ORDERED: Enoxaparin 40 mg Syringe SC SCH (10:00)
[2017-11-17] MEDS ORDERED: Lidocaine 2% PF (10 ml) Amp ONE (10:54)
[2017-11-17] MEDS ORDERED: Midazolam 2 MG/2 ML VIAL ONE ×3 (10:54→11:40)
[2017-11-17] MEDS ORDERED: Iodixanol 320 MG/ML 200 ML BOTTLE IV ONE (10:55)
[2017-11-17] MEDS ORDERED: Iodixanol 320 MG/ML 100 ML BOTTLE IV ONE (10:55)
[2017-11-17] MEDS ORDERED: Eptifibatide 20 mg/10mL Inj IVP ONE (11:35)
[2017-11-17] MEDS ORDERED: Sodium Chloride 0.9% 1,000 ML IV SCH (12:45)
--- NOTE | 2017-11-17 13:59 | CARDCATH ---
PROCEDURE DATE: 11/17/2017 CARDIAC CATHETERIZATION AND PTCA The patient is a 62-year-old male who presents with unstable angina. The patient has multivessel PTCA in the past. Because of this, cardiac catheterization is recommended. PROCEDURE: Left heart catheterization with coronary arteriography and left ventriculogram followed by PTCA and stent of the LAD. The right femoral artery was cannulated with a 6-Occitan sheath. There were no complications. I performed moderate sedation, which included the presence of an independent trained observer that assisted in monitoring the patient's level of consciousness and physiologic status. After administration of Versed and fentanyl, my intra service time was 45 minutes. The findings on catheterization revealed left ventricle that contracted normally. Estimated ejection fraction of 55-60%. His coronary anatomy revealed a right dominant circulation. The RCA revealed diffuse atherosclerosis with a patent stent. The left main artery was unremarkable. The circumflex artery and obtuse marginal branches revealed diffuse atherosclerosis with patent stent. The LAD was a diffusely diseased vessel. In the proximal portion of the LAD, there is a patent stent noted. However, there is a 90% stenoses in the proximal LAD just before the LAD stent. In addition, in the midportion of the LAD, there is a long 70% to 80% stenoses noted. The patient was started on intravenous Angiomax on the fluoroscopic guide. The guiding catheter was placed in the ostium of the left main artery. An 0.014 ATW wire was used to cross the multiple lesions in the LAD. A 2.5 x 26 mm drug-eluting stent was placed and deployed in the mid LAD at 14 mmHg. A 3.5 x 12 mm drug-eluting stent was placed and deployed in the proximal LAD lesion at 14 mmHg. After balloon deflation and removal, repeat coronary arteriography revealed an excellent result with no residual stenosis and IDALIA III flow. Angio-Seal was used to close the femoral artery site. The patient tolerated the procedure well. In summary, the procedure was successful PTCA and stent of two critical lesions in the LAD with drug-eluting stents. Cardiac catheterization reveals patent stent is in all three coronary arteries. LV function is normal. Given these findings, the patient will need to continue on aspirin and Plavix and undergo a strict cardiac risk reduction program. Ar Dewey MD
--- NOTE | 2017-11-17 14:31 | CARD ---
APPROVED REPORT Date of service: 11/17/2017 EKG Measurement Heart [id number] <Conclusion> Sinus bradycardia with 1st degree AV block Otherwise normal ECG
--- NOTE | 2017-11-17 16:21 | CP.PCM.PN ---
<Berenice Spaulding - Last Filed: 11/17/17 16:17> Subjective - Date & Time of Evaluation Date of Evaluation: 11/17/17 Time of Evaluation: 07:45 - Subjective Subjective: PGY-1 Berenice Spaulding D.O. Medicine progress note for Dr. Curry's service: Patient was seen and examined this morning. No over night events reported. Lynda orantes continues to complain of chest pain on exertion with is relieved at rest. he denies SOB. He denies fevers or chills. He does not have urinary complaints and is having normal BMs. He is NPO awaiting possible cardiac cath today. Objective - Vital Signs/Intake and Output Vital Signs (last 24 hours): Temp Pulse Resp BP Pulse Ox 97.7 F 61 18 111/58 L 98 11/17/17 06:00 11/17/17 15:30 11/17/17 15:30 11/17/17 15:30 11/17/17 06:00 Intake and Output: 11/17/17 11/17/17 06:59 18:59 Intake Total 120 Balance 120 - Medications Medications: Current Medications Aspirin (Ecotrin) 81 mg PO DAILY [facility] Last Admin: 11/17/17 09:57 Dose: Not Given Atorvastatin Calcium (Lipitor) 40 mg PO DIN [facility] Clopidogrel Bisulfate (Plavix) 75 mg PO DAILY [facility] Enoxaparin Sodium (Lovenox) 40 mg SC DAILY [facility]; Protocol Last Admin: 11/17/17 09:57 Dose: Not Given Sodium Chloride (Sodium Chloride 0.9%) 1,000 mls @ 100 mls/hr IV .Q10H [facility] Stop: 11/17/17 19:00 Last Admin: 11/17/17 13:09 Dose: 100 mls/hr Insulin Human Regular (Humulin R Med) 0 units SC ACHS [facility]; Protocol Last Admin: 11/17/17 12:51 Dose: Not Given Losartan Potassium (Cozaar) 100 mg PO DAILY [facility] Last Admin: 11/17/17 09:57 Dose: Not Given Metoprolol Succinate (Toprol Xl) 50 mg PO DAILY [facility] Last Admin: 11/17/17 09:59 Dose: Not Given Pantoprazole Sodium (Protonix Inj) 40 mg IVP DAILY [facility] Last Admin: 11/17/17 09:59 Dose: Not Given - Labs Labs: 11/17/17 07:37 11/17/17 07:37 PT 11.1 SECONDS (9.4-12.5) 11/16/17 20:07 INR 0.97 11/16/17 20:07 APTT 28.2 Seconds (25.1-36.5) 11/16/17 20:07 - Constitutional Appears: Non-toxic, No Acute Distress - Head Exam Head Exam: ATRAUMATIC, NORMAL INSPECTION - Eye Exam Eye Exam: EOMI, Normal appearance, PERRL - ENT Exam ENT Exam: Mucous Membranes Moist, Normal Exam - Neck Exam Neck Exam: Full ROM, Normal Inspection - Respiratory Exam Respiratory Exam: Clear to Ausculation Bilateral, NORMAL BREATHING PATTERN - Cardiovascular Exam Cardiovascular Exam: REGULAR RHYTHM, +S1, +S2 - GI/Abdominal Exam GI & Abdominal Exam: Soft, Tenderness, Normal Bowel Sounds - Rectal Exam Rectal Exam: Deferred - Extremities Exam Extremities Exam: Full ROM, Normal Capillary Refill, Normal Inspection - Back Exam Back Exam: NORMAL INSPECTION - Neurological Exam Neurological Exam: Alert, Awake, CN II-XII Intact, Normal Gait, Oriented x3 Neuro motor strength exam: Left Upper Extremity: 5, Right Upper Extremity: 5, Left Lower Extremity: 5, Right Lower Extremity: 5 - Psychiatric Exam Psychiatric exam: Normal Affect, Normal Mood - Skin Skin Exam: Dry, Intact, Normal Color, Warm Assessment and Plan - Assessment and Plan (Free Text) Assessment: Patient is a 62 yo male with a history of CAD and MD with 5 stents, T2DM, and HTN who presented with chest pain with exertion. Troponins were negative and no ST cahnges on EKG. He sees Dr. Dewey for cardiology. He went for cardiac cath today and received 2 stents in the LAD. Plan: Typical angina- s/p cardiac cath 11/17/17, h/o CAD and MD with 5 previous stents - 2 stents (prox and mid LAD) - EKG: sinus bradycardia (54) with 1st degree AV block - Echo 06/2016: EF 55%, no significant abnormalities - Monitor on telemetry - Continue ASA 81 mg PO daily - Start Plavix 75 mg PO daily - Cardiology consulted ([place]) T2DM - ISS medium - Accuchecks ACHS - Hypoglycemia protocol HTN- presently well-controlled - Continue losartan 100 mg PO daily - Continue metoprolol 50 mg PO daily HLD - Lipid panel wnl - Lipitor 40 mg PO daily IVF: NS @ 100 Diet: heart healthy GI ppx: not indicated VTE ppx: Lovenox 40 mg SC daily Code status: full code Case discussed with attending, Dr. Curry. <Callum Curry - Last Filed: 11/18/17 16:26> Objective - Vital Signs/Intake and Output Vital Signs (last 24 hours): Temp Pulse Resp BP Pulse Ox 98.0 F 72 18 133/68 100 11/18/17 06:00 11/18/17 08:30 11/18/17 08:30 11/18/17 08:30 11/18/17 08:30 Intake and Output: 11/18/17 11/18/17 06:59 18:59 Intake Total 360 Output Total 900 Balance -540 - Labs Labs: 11/18/17 07:00 11/18/17 07:00 PT 11.1 SECONDS (9.4-12.5) 11/16/17 20:07 INR 0.97 11/16/17 20:07 APTT 28.2 Seconds (25.1-36.5) 11/16/17 20:07 Attending/Attestation - Attestation I have personally seen and examined this patient.: Yes I have fully participated in the care of the patient.: Yes I have reviewed all pertinent clinical information, including history, physical exam and plan: Yes Notes (Text): 11/18/17 16:23 attending note; Patient seen and examined with resident. Patient's by the bedside. Status post cardiac cath. Denies any abdominal pain. Denies any nausea, vomiting. Patient is a 62 year old male with a history of CAD and MD with 5 stents, T2DM, and HTN who presented with chest pain with exertion. Troponins were negative and no ST cahnges on EKG. unstable angina; patient was evaluated by radiology clerk Dr. Dewey. s/p cardiac cath and 2 stents in the LAD. continue aspirin and Plavix. Hypertension; continue Cozaar and JUAN inhibitor. Diabetes; hold metformin for 48 hours. Possible discharge home tomorrow if clinically stable. Upon discharge The patient will follow-up with PMD Dr. Crum. Needs close follow-up with cardiology DR. Dewey. dietary education given. Medication compliance insisted. Follow-up care insisted in detail. 11/18/17 16:26
--- NOTE | 2017-11-17 20:29 | CON ---
DATE: 11/17/2017 HISTORY OF PRESENT ILLNESS: The patient is a 62-year-old male with multiple cardiac risk factors including hypertension, diabetes mellitus and hypercholesterolemia, who presents with 2 weeks of exertional chest pain and shortness of breath. These symptoms once he has them has been associated with documented critical coronary artery disease. Because of this, the patient is brought to the emergency room. SOCIAL HISTORY: The patient does not smoke. His last stress test was 1 year ago which there was no ischemia with a normal LV function. No history of peptic ulcer disease. REVIEW OF SYSTEMS: A 14-point review of systems is reviewed in detail. No additional cardiac symptoms are noted. No history of bleeding. PHYSICAL EXAMINATION: VITAL SIGNS: On physical exam, blood pressure is 131/84, heart rates in the 60s. NECK: Negative JVD. LUNGS: Without rales. HEART: S1, S2. EXTREMITIES: Without edema. EKG shows nonspecific ST-T changes. LABORATORY DATA: Troponin so far is negative. BUN and creatinine unremarkable. Glucose is 131, hemoglobin is 14.4. IMPRESSION: 1. Recurrent angina. 2. Multivessel coronary artery disease. 3. History of percutaneous transluminal coronary angioplasty and stent in the past. 4. Diabetes mellitus. 5. Hypertension. 6. Hypercholesterolemia. Given these findings, myocardial infarction will be ruled out. Aspirin and antianginal have been ordered. The patient will likely need cardiac catheterization. Ar Dewey MD
[2017-11-18 06:07] VITALS: TEMP 98
[2017-11-18 07:47] LABS: BASO # 0.02 K/mm3 (0.0-2.0); BASO % 0.2 % (0.0-3.0); EOS # 0.2 (0.0-0.7); EOS % 2.5 % (1.5-5.0); GRAN # 5.02 (1.4-6.5); GRAN % 60.5 % (50.0-68.0); HEMOGLOBIN 14.5 g/dL (14.0-18.0); LYMPH # 2.5 (1.2-3.4); LYMPH % 29.5 % (22.0-35.0); MEAN CELL VOLUME 82.8 fl (80.0-105.0); MEAN CORPUSCULAR HEMOGLOBIN 27.7 pg (25.0-35.0); MEAN CORPUSCULAR HGB CONC 33.5 g/dl (31.0-37.0); MEAN PLATELET VOLUME 10.5 fl (7.0-11.0); MONO # 0.6 (0.1-0.6); MONO % 7.3 % (1.0-6.0); RBC 5.23 10^6/uL (3.5-6.1); RED CELL DISTRIBUTION WIDTH 12.9 % (11.5-14.5); WHITE BLOOD COUNT 8.3 10^3/ul (4.5-11.0)
[2017-11-18] MEDS: Insulin Reg-MEDIUM-Coverage SC SCH (08:10)
[2017-11-18 09:09] VITALS: BP 133/68; PULSE 72; RESP 18; O2SAT 100
--- NOTE | 2017-11-18 09:46 | CP.PCM.DIS ---
<Berenice Spaulding - Last Filed: 11/18/17 10:10> Provider - Provider Date of Admission: 11/16/17 22:45 Attending physician: Callum Curry MD Primary care physician: Mackenzie Crum MD Consults: cardiology Time Spent in preparation of Discharge (in minutes): 45 Diagnosis - Discharge Diagnosis (1) Typical angina Status: Acute Priority: High (2) CAD (coronary artery disease) Status: Chronic Priority: High (3) T2DM (type 2 diabetes mellitus) Status: Chronic Priority: Medium (4) HTN (hypertension) Status: Chronic Priority: Medium Hospital Course - Lab Results Lab Results: Most Recent Lab Values WBC 8.3 10^3/ul (4.5-11.0) 11/18/17 07:00 RBC 5.23 10^6/uL (3.5-6.1) 11/18/17 07:00 Hgb 14.5 g/dL (14.0-18.0) 11/18/17 07:00 Hct 43.3 % (42.0-52.0) 11/18/17 07:00 MCV 82.8 fl (80.0-105.0) 11/18/17 07:00 MCH 27.7 pg (25.0-35.0) 11/18/17 07:00 MCHC 33.5 g/dl (31.0-37.0) 11/18/17 07:00 RDW 12.9 % (11.5-14.5) 11/18/17 07:00 Plt Count 232 10^3/uL (120.0-450.0) 11/18/17 07:00 MPV 10.5 fl (7.0-11.0) 11/18/17 07:00 Gran % 60.5 % (50.0-68.0) 11/18/17 07:00 Lymph % (Auto) 29.5 % (22.0-35.0) 11/18/17 07:00 Emmet % (Auto) 7.3 % (1.0-6.0) H 11/18/17 07:00 Eos % (Auto) 2.5 % (1.5-5.0) 11/18/17 07:00 Baso % (Auto) 0.2 % (0.0-3.0) 11/18/17 07:00 Gran # 5.02 (1.4-6.5) 11/18/17 07:00 Lymph # (Auto) 2.5 (1.2-3.4) 11/18/17 07:00 Emmet # (Auto) 0.6 (0.1-0.6) 11/18/17 07:00 Eos # (Auto) 0.2 (0.0-0.7) 11/18/17 07:00 Baso # (Auto) 0.02 K/mm3 (0.0-2.0) 11/18/17 07:00 PT 11.1 SECONDS (9.4-12.5) 11/16/17 20:07 INR 0.97 11/16/17 20:07 APTT 28.2 Seconds (25.1-36.5) 11/16/17 20:07 Sodium 141 mmol/L (132-148) 11/17/17 07:37 Potassium 4.2 mmol/L (3.6-5.0) 11/17/17 07:37 Chloride 104 mmol/L (98-107) 11/17/17 07:37 Carbon Dioxide 28 mmol/L (21-33) 11/17/17 07:37 Anion Gap 13 (10-20) 11/17/17 07:37 BUN 19 mg/dL (7-21) 11/17/17 07:37 Creatinine 1.2 mg/dl (0.8-1.5) 11/17/17 07:37 Est GFR ( Amer) > 60 11/17/17 07:37 Est GFR (Non-Af Amer) > 60 11/17/17 07:37 POC Glucose (mg/dL) 139 mg/dL (65-110) H 11/18/17 07:47 Random Glucose 137 mg/dL (70-110) H 11/17/17 07:37 Hemoglobin A1c 6.4 % (4.2-6.5) 11/16/17 20:07 Calcium 9.5 mg/dL (8.4-10.5) 11/17/17 07:37 Phosphorus 3.3 mg/dL (2.5-4.5) 11/17/17 07:37 Magnesium 1.9 mg/dL (1.7-2.2) 11/17/17 07:37 Total Bilirubin 0.5 mg/dL (0.2-1.3) 11/17/17 07:37 AST 23 U/L (17-59) 11/17/17 07:37 ALT 24 U/L (7-56) 11/17/17 07:37 Alkaline Phosphatase 52 U/L (38-126) 11/17/17 07:37 Lactate Dehydrogenase 322 U/L (333-699) L 11/16/17 20:07 Total Creatine Kinase 40 U/L (35-230) 11/16/17 20:07 Troponin I 0.05 ng/mL D 11/17/17 13:00 Total Protein 7.2 g/dL (5.8-8.3) 11/17/17 07:37 Albumin 4.1 g/dL (3.0-4.8) 11/17/17 07:37 Globulin 3.2 gm/dL 11/17/17 07:37 Albumin/Globulin Ratio 1.3 (1.1-1.8) 11/17/17 07:37 Triglycerides 157 mg/dL (35-160) 11/17/17 06:45 Cholesterol 140 mg/dL (130-200) 11/17/17 06:45 LDL Cholesterol Direct 76 mg/dL (0-129) 11/17/17 06:45 HDL Cholesterol 35 mg/dL (29-60) 11/17/17 06:45 TSH 3rd Generation 2.60 mIU/mL (0.46-4.68) 11/16/17 20:07 - Hospital Course Hospital Course: 62 y/o male with a PMH of HTN, CAD, COPD, CO, with 5 cardiac stents, DM, and GERD, presents to the ED with left sided intermittent pressure-like chest pain with associated SOB, mostly occurring with exertion, and relieved with rest. Pt states this pain feels very similar to when he had his stents placed in the past. 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 He reports the pain subsides when he rests for about 20 mins. The pain has worsened over the past 10 days, and occurs with less and less exertion. Pt reports the pain feels like it is "burning like fire" and is 8/10, does not radiate to his jaw or arms. The pain has not mostly subsided now at the time of the interview. Pt states that the pain began today when he was having a bowel movement. Patient was diagnosed with typical angina. Home medications that were continued were losartan, metoprolol, simvastatin, lovenox and pepcid. Aspirin was also given. An initial EKG showed no ST or T wave abnormalities but was repeated every 6 hours. His troponins were negative x3. His lipid panel was within normal limits. Cardio was consulted and Dr. Dewey performed a cardiac catheterization and 2 stents were placed in the proximal and mid left anterior descending artery. There were no complications during or after the procedure. Upon discharge, the patient's chest pain was improving. he was ambulating independently. There was no bleeding at the R femoral cath insertion site. He was started on Plavix. Discharge Exam - Head Exam Head Exam: ATRAUMATIC, NORMAL INSPECTION - Eye Exam Eye Exam: EOMI, Normal appearance, PERRL - ENT Exam ENT Exam: Mucous Membranes Moist - Neck Exam Neck exam: Normal Inspection - Respiratory Exam Respiratory Exam: Clear to PA & Lateral, NORMAL BREATHING PATTERN, UNREMARKABLE - Cardiovascular Exam Cardiovascular Exam: REGULAR RHYTHM, +S1, +S2 - GI/Abdominal Exam GI & Abdominal Exam: Normal Bowel Sounds, Soft, Unremarkable - Rectal Exam Rectal Exam: Deferred - Extremities Exam Extremities exam: normal inspection Additional comments: R femoral cath entry site clean, no bleeding, no signs of infection - Back Exam Back exam: NORMAL INSPECTION - Neurological Exam Neurological exam: Alert, CN II-XII Intact, Normal Gait, Oriented x3 - Psychiatric Exam Psychiatric exam: Normal Affect, Normal Mood - Skin Skin Exam: Dry, Intact, Normal Color, Warm Discharge Plan - Discharge Medications Prescriptions: Clopidogrel [Plavix] 75 mg PO DAILY #30 tab - Follow Up Plan Condition: IMPROVED Disposition: HOME/ ROUTINE Instructions: Coronary Angioplasty, Heart Healthy Diet, Chest Pain, Clopidogrel, Diabetic Meal Planning Additional Instructions: You are being discharged from [facility] after receiving a cardiac catheterization with placement of 2 stents. Please follow-up with your primary care provider, Dr. Crum, within 3-5 days of discharge. Please follow-up with your independent film maker, Dr. Dewey, within one week of discharge. You will be given a prescription for Plavix 75 mg. Please take this once daily in addition to your other home medications. Please do not start metformin until tomorrow. If symptoms return, present to the nearest emergency department. Patient stated: he wishes to consult and receive the flu vaccine and possibly the pneumococcal vaccine from his primary physician. Diet: Heart Healthy Diet and Diabetic Exchange Menu Referrals: Mackenzie Crum MD [Primary Care Provider] - Ar Dewey MD [Staff Provider] - <Callum Curry - Last Filed: 11/18/17 16:28> Provider - Provider Date of Admission: 11/16/17 22:45 Attending physician: Callum Curry MD Primary care physician: Mackenzie Crum MD Hospital Course - Lab Results Lab Results: Most Recent Lab Values WBC 8.3 10^3/ul (4.5-11.0) 11/18/17 07:00 RBC 5.23 10^6/uL (3.5-6.1) 11/18/17 07:00 Hgb 14.5 g/dL (14.0-18.0) 11/18/17 07:00 Hct 43.3 % (42.0-52.0) 11/18/17 07:00 MCV 82.8 fl (80.0-105.0) 11/18/17 07:00 MCH 27.7 pg (25.0-35.0) 11/18/17 07:00 MCHC 33.5 g/dl (31.0-37.0) 11/18/17 07:00 RDW 12.9 % (11.5-14.5) 11/18/17 07:00 Plt Count 232 10^3/uL (120.0-450.0) 11/18/17 07:00 MPV 10.5 fl (7.0-11.0) 11/18/17 07:00 Gran % 60.5 % (50.0-68.0) 11/18/17 07:00 Lymph % (Auto) 29.5 % (22.0-35.0) 11/18/17 07:00 Emmet % (Auto) 7.3 % (1.0-6.0) H 11/18/17 07:00 Eos % (Auto) 2.5 % (1.5-5.0) 11/18/17 07:00 Baso % (Auto) 0.2 % (0.0-3.0) 11/18/17 07:00 Gran # 5.02 (1.4-6.5) 11/18/17 07:00 Lymph # (Auto) 2.5 (1.2-3.4) 11/18/17 07:00 Emmet # (Auto) 0.6 (0.1-0.6) 11/18/17 07:00 Eos # (Auto) 0.2 (0.0-0.7) 11/18/17 07:00 Baso # (Auto) 0.02 K/mm3 (0.0-2.0) 11/18/17 07:00 PT 11.1 SECONDS (9.4-12.5) 11/16/17 20:07 INR 0.97 11/16/17 20:07 APTT 28.2 Seconds (25.1-36.5) 11/16/17 20:07 Sodium 140 mmol/L (132-148) 11/18/17 07:00 Potassium 4.1 mmol/L (3.6-5.0) 11/18/17 07:00 Chloride 104 mmol/L (98-107) 11/18/17 07:00 Carbon Dioxide 27 mmol/L (21-33) 11/18/17 07:00 Anion Gap 13 (10-20) 11/18/17 07:00 BUN 15 mg/dL (7-21) 11/18/17 07:00 Creatinine 1.2 mg/dl (0.8-1.5) 11/18/17 07:00 Est GFR ( Amer) > 60 11/18/17 07:00 Est GFR (Non-Af Amer) > 60 11/18/17 07:00 POC Glucose (mg/dL) 139 mg/dL (65-110) H 11/18/17 07:47 Random Glucose 143 mg/dL (70-110) H 11/18/17 07:00 Hemoglobin A1c 6.4 % (4.2-6.5) 11/16/17 20:07 Calcium 9.5 mg/dL (8.4-10.5) 11/18/17 07:00 Phosphorus 3.1 mg/dL (2.5-4.5) 11/18/17 07:00 Magnesium 2.1 mg/dL (1.7-2.2) 11/18/17 07:00 Total Bilirubin 0.5 mg/dL (0.2-1.3) 11/17/17 07:37 AST 23 U/L (17-59) 11/17/17 07:37 ALT 24 U/L (7-56) 11/17/17 07:37 Alkaline Phosphatase 52 U/L (38-126) 11/17/17 07:37 Lactate Dehydrogenase 322 U/L (333-699) L 11/16/17 20:07 Total Creatine Kinase 40 U/L (35-230) 11/16/17 20:07 Troponin I 0.05 ng/mL D 11/17/17 13:00 Total Protein 7.2 g/dL (5.8-8.3) 11/17/17 07:37 Albumin 4.1 g/dL (3.0-4.8) 11/17/17 07:37 Globulin 3.2 gm/dL 11/17/17 07:37 Albumin/Globulin Ratio 1.3 (1.1-1.8) 11/17/17 07:37 Triglycerides 157 mg/dL (35-160) 11/17/17 06:45 Cholesterol 140 mg/dL (130-200) 11/17/17 06:45 LDL Cholesterol Direct 76 mg/dL (0-129) 11/17/17 06:45 HDL Cholesterol 35 mg/dL (29-60) 11/17/17 06:45 TSH 3rd Generation 2.60 mIU/mL (0.46-4.68) 11/16/17 20:07 Attending/Attestation - Attestation I have personally seen and examined this patient.: Yes I have fully participated in the care of the patient.: Yes I have reviewed all pertinent clinical information, including history, physical exam and plan: Yes Notes (Text): 11/18/17 16:27 attending note; Patient seen and examined with resident. denies any chest pain, shortness of breath. Denies any palpitation. Ambulating without difficulty. Tolerating diet well. Patient is a 62 year old male with a history of CAD and CO with 5 stents, T2DM, and HTN who presented with chest pain with exertion. Troponins were negative and no ST cahnges on EKG. unstable angina; patient was evaluated by independent film maker Dr. Dewey. s/p cardiac cath and 2 stents in the LAD. continue aspirin and Plavix. Patient got plavix delivered by the pharmacy yesterday. Hypertension; continue metoprolol,Cozaar and JUAN inhibitor. Diabetes; hold metformin for 48 hours. charge home today. Upon discharge The patient will follow-up with PMD Dr. Crum. Needs close follow-up with cardiology DR. Dewey. dietary education given. Medication compliance insisted. Follow-up care information given. 11/18/17 16:28 11/18/17 16:28
[2017-11-18 10:11] LABS: BLOOD UREA NITROGEN 15 mg/dL (7-21); GFR NON-AFRICAN AMERICAN > 60
[2017-11-18 10:12] LABS: CALCIUM 9.5 mg/dL (8.4-10.5)
--- NOTE | 2017-11-20 10:54 | CARD ---
APPROVED REPORT Date of service: 11/17/2017 EKG Measurement Heart [id number] <Conclusion> Sinus rhythm with 1st degree AV block Otherwise normal ECG
--- NOTE | 2017-11-20 10:55 | CARD ---
APPROVED REPORT Date of service: 11/16/2017 EKG Measurement Heart [id number] <Conclusion> Sinus rhythm with 1st degree AV block Otherwise normal ECG
== END 2017-11-18 09:14 | disposition home or self-care (01) | DRG 854 ==
LOC: ED 19:07 → ERH 22:45 → 2RSO 11-17 00:14 → OBSVTOIN 11-17 16:01
PROVIDERS: ADMIT Internal Medicine; ATTEND Internal Medicine
PROC: 027035Z Dilation of Coronary Artery, One Artery with Two Drug-eluting Intraluminal Devices, Percutaneous Approach (ICD-10-PCS; principal; 2017-11-17)
PROC: 4A023N7 Measurement of Cardiac Sampling and Pressure, Left Heart, Percutaneous Approach (ICD-10-PCS; 2017-11-17)
PROC: B2151ZZ Fluoroscopy of Left Heart using Low Osmolar Contrast (ICD-10-PCS; 2017-11-17)
PROC: B2111ZZ Fluoroscopy of Multiple Coronary Arteries using Low Osmolar Contrast (ICD-10-PCS; 2017-11-17)
DX: I25.110 Atherosclerotic heart disease of native coronary artery with unstable angina pectoris (principal); J44.9 Chronic obstructive pulmonary disease, unspecified; I10 Essential (primary) hypertension; E11.9 Type 2 diabetes mellitus without complications; E78.00 Pure hypercholesterolemia, unspecified; E78.5 Hyperlipidemia, unspecified; K21.9 Gastro-esophageal reflux disease without esophagitis; R00.1 Bradycardia, unspecified; I44.0 Atrioventricular block, first degree; Z79.02 Long term (current) use of antithrombotics/antiplatelets; Z79.82 Long term (current) use of aspirin; Z87.442 Personal history of urinary calculi; Z87.891 Personal history of nicotine dependence; Z95.5 Presence of coronary angioplasty implant and graft

== ENCOUNTER 2017-12-09 14:51 | Emergency (ER) | payer MEDICAID ==
[2017-12-09 14:51] VITALS: BMI 35.9
[2017-12-09 15:04] VITALS: RESP 18; TEMP 98
[2017-12-09] MEDS ORDERED: TDAP Vaccine 0.5 mL Syr IM ONE (15:18)
--- NOTE | 2017-12-09 15:18 | ED PDOC ---
Addendum entered and electronically signed by Renan Fisher PA-C 12/09/17 17:16: Addendum Addendum: 12/09/17 17:15 Note: there is no periorbital tenderness or bony deformity/swelling. Original Note: Arrival/HPI - General Chief Complaint: Trauma Time Seen by Provider: 12/09/17 15:06 Historian: Patient - History of Present Illness Narrative History of Present Illness (Text): 12/09/17 15:06 62 y/o male, pmh including chronic htn/hld/dm, taking plavix, last tetanus doesn't remember, biba for head injury and laceration x 1 hour. Pt. stated that he was walking up the stair, slipped due to the shoe accident, forehead fall on the step, sustained laceration and bleeding, stated that he has hard time to control the bleeding, no LOC, no neck/back/facial pain, no change in vision, no numbness or tingling, no palpitation, no night sweat, no other medical or psychological complaints. Past Medical History - Provider Review Nursing Documentation Reviewed: Yes - Infectious Disease Hx of Infectious Diseases: None - Cardiac Hx Cardiac Disorders: Yes (cad, mi, cp) Hx Hypertension: Yes - Pulmonary Hx Respiratory Disorders: Yes Hx Chronic Obstructive Pulmonary Disease (COPD): Yes - Neurological Hx Neurological Disorder: No - HEENT Hx HEENT Disorder: No - Renal Hx Renal Disorder: Yes Hx Kidney Stones: Yes - Endocrine/Metabolic Hx Endocrine Disorders: Yes Hx Diabetes Mellitus Type 2: Yes - Hematological/Oncological Hx Blood Disorders: Yes Hx Shingles: Yes (9 months ago has residual pain at times) - Integumentary Hx Dermatological Disorder: No - Musculoskeletal/Rheumatological Hx Musculoskeletal Disorders: No Hx Falls: No - Gastrointestinal Hx Gastrointestinal Disorders: Yes Hx Gastroesophageal Reflux: Yes - Genitourinary/Gynecological Hx Genitourinary Disorders: Yes - Psychiatric Hx Psychophysiologic Disorder: No Hx Substance Use: No - Surgical History Hx Cardiac Catheterization: Yes Hx Coronary Stent: Yes (total 7 stent) Other/Comment: s/p 2 stent on monday11/17/17, pt has total of 7 stents - Anesthesia Hx Anesthesia Reactions: No Hx Malignant Hyperthermia: No - Suicidal Assessment Feels Threatened In Home Enviroment: No Family/Social History - Physician Review Nursing Documentation Reviewed: Yes Family/Social History: Unknown Family HX Smoking Status: Former Smoker Hx Alcohol Use: No Hx Substance Use: No Hx Substance Use Treatment: No Allergies/Home Meds Allergies/Adverse Reactions: Allergies apple Allergy (Verified 12/09/17 15:03) RASH FACIAL SWELLING peach Allergy (Verified 12/09/17 15:03) SWELLING pear Allergy (Verified 12/09/17 15:03) SWELLING Home Medications: Home Meds Medication Instructions Recorded Confirmed Aspirin [Adult Low Dose Aspirin EC] 81 mg PO DAILY 06/20/16 11/23/17 Fenofibrate,Micronized 134 mg PO DAILY 06/20/16 11/23/17 [Fenofibrate] Gabapentin 600 mg PO BID 08/17/16 11/23/17 Alogliptin Alexis/Metformin HCl 1 tab PO BID 11/16/17 11/23/17 [Alogliptin-Metformin 12.5-1000] Losartan [Cozaar] 100 mg PO DAILY 11/16/17 11/23/17 Cholecalciferol [Vitamin D 1000 IU] 50,000 iu PO QWK 11/23/17 11/23/17 Dicyclomine [Bentyl] 20 mg PO DAILY 11/23/17 11/23/17 Glipizide [Glipizide ER] 2.5 mg PO DAILY 11/23/17 11/23/17 Lidocaine 5% [Lidoderm] 1 patch TOP DAILY 11/23/17 11/23/17 Metoprolol Tartrate [Lopressor] 50 mg PO DAILY 11/23/17 11/24/17 Prilosec 10 mg PO DAILY 11/23/17 11/23/17 Simethicone [Bicarsim] 80 mg PO BID 11/23/17 11/23/17 Simvastatin [Zocor] 20 mg PO DAILY 11/23/17 11/23/17 Review of Systems - Review of Systems Constitutional: absent: Fatigue, Fevers Eyes: absent: Vision Changes ENT: absent: Hearing Changes Respiratory: absent: SOB, Cough Cardiovascular: absent: Chest Pain Gastrointestinal: absent: Abdominal Pain, Nausea, Vomiting Skin: Laceration (forehead), Other (+abrasion forehead). absent: Rash, Pruritis, Skin Lesions, Abscess, Ulcer, Cellulitis Neurological: Headache. absent: Dizziness Psychiatric: absent: Anxiety, Depression, Suicidal Ideation Physical Exam Vital Signs Reviewed: Yes Vital Signs Temp Pulse Resp BP Pulse Ox 12/09/17 15:00 98 F 78 18 145/90 99 Temperature: Afebrile Blood Pressure: Normal Pulse: Regular Respiratory Rate: Normal Appearance: Positive for: Well-Appearing, Non-Toxic, Comfortable Pain Distress: Mild Mental Status: Positive for: Alert and Oriented X 3 - Systems Exam Head: Present: Tenderness (lt. frontal forehead), Contusion (lt. frontal forehead), Swelling (lt. frontal forehead), Ecchymosis (lt. frontal forehead), Abrasion (lt. frontal forehead 3cm diameter), Laceration (lt. frontal forehead 2cm length but perfusely bleeding. ), Other (Facial: no bony tenderness or swelling, no laceration/abrasion. ) Pupils: Present: PERRL Extroacular Muscles: Present: EOMI Conjunctiva: Present: Normal Ears: Present: NORMAL TM, Normal Canal. No: Erythema Mouth: Present: Moist Mucous Membranes Neck: Present: Normal Range of Motion, Trachea Midline. No: Meningeal Signs, MIDLINE TENDERNESS, Paraspinal Tenderness, Lymphadenopathy Respiratory/Chest: Present: Clear to Auscultation, Good Air Exchange. No: Respiratory Distress, Accessory Muscle Use, Wheezes, Retracting, Rhonchi, Tender to Palpation Cardiovascular: Present: Regular Rate and Rhythm, Normal S1, S2. No: Murmurs Abdomen: No: Tenderness, Distention, Peritoneal Signs Back: Present: Normal Inspection. No: CVA Tenderness, Midline Tenderness, Paraspinal Tenderness, Pain with Leg Raise, Decubitus Ulcer Upper Extremity: Present: Normal Inspection, Normal ROM, NORMAL PULSES. No: Cyanosis, Edema, Tenderness, Swelling Lower Extremity: Present: Normal Inspection, NORMAL PULSES, Normal ROM, Neurovascularly Intact, Capillary Refill < 2 s. No: Edema, Tenderness, Swelling, Deformity Neurological: Present: GCS=15, CN II-XII Intact, Speech Normal, Motor Func Grossly Intact, Gait Normal, Memory Normal Skin: Present: Warm, Dry, Normal Color. No: Rashes Psychiatric: Present: Alert, Oriented x 3, Normal Insight, Normal Concentration Medical Decision Making ED Course and Treatment: 12/09/17 15:23 -tdap/tylenol -CT head 12/09/17 17:13 PROCEDURE: LACERATION REPAIR Performed by the emergency provider Location: lt. frontal forehead Length: 1.5 cm Description: {"clean wound edges","no foreign bodies"} Distal CMS: Normal. No deficits. Neurovascularly intact. Anesthesia: Lidocaine 1% 0.5cc Preparation: The wound was cleaned with NS 1000cc and clean with Bet[place]. The area was prepped and draped in the usual sterile fashion. Exploration: The wound was explored and no foreign bodies were found. Procedure: The wound was closed with 6-0 nylon. There was {good / appropriate / adequate / loose} approximation. In total, 3 were used. Post-Procedure: Good closure and hemostasis. The patient tolerated the procedure well and there were no complications. CSM remains intact. Post procedure dressing applied. -CT head: No acute intracranial abnormality. Large left frontoparietal scalp hematoma and mild left supraorbital soft tissue swelling. -Discharge home with tylenol, bacitracin oinment, keep the dressing dry and clean for 2 days, sutures need to be removed by day 7, followup with your pmd within 2 days, return to the ER for any new or worsening signs or symptoms. - RAD Interpretation Radiology Orders: Date of service: 12/09/2017 PROCEDURE: CT HEAD WITHOUT CONTRAST. HISTORY: forehead injury, plavix, fall COMPARISON: None available. TECHNIQUE: Axial computed tomography images were obtained through the head/brain without intravenous contrast. Radiation dose: Total exam DLP = 952.02 mGy-cm. This CT exam was performed using one or more of the following dose reduction techniques: Automated exposure control, adjustment of the mA and/or kV according to patient size, and/or use of iterative reconstruction technique. FINDINGS: HEMORRHAGE: No intracranial hemorrhage. BRAIN: Lamas-white matter differentiation is preserved. There is no mass, mass effect or abnormal extra-axial fluid collection. There is no territorial infarction. The midline sagittal structures are normal. VENTRICLES: There is mild age-related global parenchymal volume loss and proportionate enlargement of the ventricles and cortical sulci. CALVARIUM: There is no calvarial fracture. There is a large left frontoparietal scalp hematoma and mild left supra orbital soft tissue swelling. PARANASAL SINUSES: Predominantly clear. MASTOID AIR CELLS: Predominantly clear. OTHER FINDINGS: None. IMPRESSION: No acute intracranial abnormality. Large left frontoparietal scalp hematoma and mild left supraorbital soft tissue swelling. [employer] Mixer: Radiologist - PA / GUARD SUPERVISOR / Resident Statement /DO has reviewed & agrees with the documentation as recorded. Disposition/Present on Arrival - Present on Arrival Any Indicators Present on Arrival: No History of DVT/PE: No History of Uncontrolled Diabetes: No Urinary Catheter: No History of Decub. Ulcer: No History Surgical Site Infection Following: None - Disposition Have Diagnosis and Disposition been Completed?: Yes Diagnosis: Abrasion, Forehead laceration, Fall Disposition: HOME/ ROUTINE Disposition Time: 17:14 Patient Plan: Discharge Patient Problems: Current Active Problems Problem Status Onset Abrasion Acute Forehead laceration Acute Fall Acute Condition: GOOD Additional Instructions: -Discharge home with tylenol, bacitracin oinment, keep the dressing dry and clean for 2 days, sutures need to be removed by day 7, followup with your pmd within 2 days, return to the ER for any new or worsening signs or symptoms. Prescriptions: Acetaminophen [Tylenol 325mg tab] 2 tab PO QID PRN #30 tab PRN Reason: Other Bacitracin Ointment [Bacitracin] 1 appful TOP BID #15 g Forms: [facility] (Serbian), WORK NOTE
--- NOTE | 2017-12-09 16:56 | CT ---
Date of service: 12/09/2017 PROCEDURE: CT HEAD WITHOUT CONTRAST. HISTORY: forehead injury, plavix, fall COMPARISON: None available. TECHNIQUE: Axial computed tomography images were obtained through the head/brain without intravenous contrast. Radiation dose: Total exam DLP = 952.02 mGy-cm. This CT exam was performed using one or more of the following dose reduction techniques: Automated exposure control, adjustment of the mA and/or kV according to patient size, and/or use of iterative reconstruction technique. FINDINGS: HEMORRHAGE: No intracranial hemorrhage. BRAIN: Lamas-white matter differentiation is preserved. There is no mass, mass effect or abnormal extra-axial fluid collection. There is no territorial infarction. The midline sagittal structures are normal. VENTRICLES: There is mild age-related global parenchymal volume loss and proportionate enlargement of the ventricles and cortical sulci. CALVARIUM: There is no calvarial fracture. There is a large left frontoparietal scalp hematoma and mild left supra orbital soft tissue swelling. PARANASAL SINUSES: Predominantly clear. MASTOID AIR CELLS: Predominantly clear. OTHER FINDINGS: None. IMPRESSION: No acute intracranial abnormality. Large left frontoparietal scalp hematoma and mild left supraorbital soft tissue swelling.
[2017-12-09 17:22] VITALS: BP 140/87; PULSE 75; O2SAT 98
== END 2017-12-09 17:22 | disposition home or self-care (01) ==
LOC: ED 14:51
DX: S01.81XA Laceration without foreign body of other part of head, initial encounter (principal); W10.9XXA Fall (on) (from) unspecified stairs and steps, initial encounter; Y92.9 Unspecified place or not applicable; Z23 Encounter for immunization

== ENCOUNTER 2017-12-17 08:56 | Emergency (ER) | payer MEDICAID ==
[2017-12-17 08:58] VITALS: BMI 35.9
--- NOTE | 2017-12-17 09:40 | ED PDOC ---
Arrival/HPI - General Chief Complaint: Suture/Staple Removal Time Seen by Provider: 12/17/17 09:21 Historian: Patient - History of Present Illness Narrative History of Present Illness (Text): 62 y/o M w/ h/o CAD s/p 7 stents presenting to the Emergency Room for removal of sutures. Patient states he sustained a fall last week resulting in him sustaining a laceration over the left side of his forehead requiring stitches. He denies any blood, purulent discharge or continued pain as a result of the fall or the stitches being placed. Time/Duration: Prior to Arrival Symptom Course: Improving Activities at Onset: Rest Context: Home Past Medical History - Provider Review Nursing Documentation Reviewed: Yes - Travel History Have you recently traveled outside [place] w/in the past 3 mons?: No - Infectious Disease Hx of Infectious Diseases: None - Cardiac Hx Cardiac Disorders: Yes (cad, mi, cp) Hx Hypertension: Yes - Pulmonary Hx Respiratory Disorders: Yes Hx Chronic Obstructive Pulmonary Disease (COPD): Yes - Neurological Hx Neurological Disorder: No - HEENT Hx HEENT Disorder: No - Renal Hx Renal Disorder: Yes Hx Kidney Stones: Yes - Endocrine/Metabolic Hx Endocrine Disorders: Yes Hx Diabetes Mellitus Type 2: Yes - Hematological/Oncological Hx Blood Disorders: Yes Hx Shingles: Yes (9 months ago has residual pain at times) - Integumentary Hx Dermatological Disorder: No - Musculoskeletal/Rheumatological Hx Musculoskeletal Disorders: No Hx Falls: No - Gastrointestinal Hx Gastrointestinal Disorders: Yes Hx Gastroesophageal Reflux: Yes - Genitourinary/Gynecological Hx Genitourinary Disorders: Yes - Psychiatric Hx Psychophysiologic Disorder: No Hx Substance Use: No - Surgical History Hx Cardiac Catheterization: Yes Hx Coronary Stent: Yes (total 7 stent) Other/Comment: s/p 2 stent on monday11/17/17, pt has total of 7 stents - Anesthesia Hx Anesthesia Reactions: No Hx Malignant Hyperthermia: No - Suicidal Assessment Feels Threatened In Home Enviroment: No Family/Social History - Physician Review Nursing Documentation Reviewed: Yes Family/Social History: Unknown Family HX Smoking Status: Former Smoker Hx Alcohol Use: No Hx Substance Use: No Hx Substance Use Treatment: No Allergies/Home Meds Allergies/Adverse Reactions: Allergies apple Allergy (Verified 12/17/17 09:30) RASH FACIAL SWELLING peach Allergy (Verified 12/17/17 09:30) SWELLING pear Allergy (Verified 12/17/17 09:30) SWELLING Home Medications: Home Meds Medication Instructions Recorded Confirmed Aspirin [Adult Low Dose Aspirin EC] 81 mg PO DAILY 06/20/16 11/23/17 Fenofibrate,Micronized 134 mg PO DAILY 06/20/16 11/23/17 [Fenofibrate] Gabapentin 600 mg PO BID 08/17/16 11/23/17 Alogliptin Alexis/Metformin HCl 1 tab PO BID 11/16/17 11/23/17 [Alogliptin-Metformin 12.5-1000] Losartan [Cozaar] 100 mg PO DAILY 11/16/17 11/23/17 Cholecalciferol [Vitamin D 1000 IU] 50,000 iu PO QWK 11/23/17 11/23/17 Dicyclomine [Bentyl] 20 mg PO DAILY 11/23/17 11/23/17 Glipizide [Glipizide ER] 2.5 mg PO DAILY 11/23/17 11/23/17 Lidocaine 5% [Lidoderm] 1 patch TOP DAILY 11/23/17 11/23/17 Metoprolol Tartrate [Lopressor] 50 mg PO DAILY 11/23/17 11/24/17 Prilosec 10 mg PO DAILY 11/23/17 11/23/17 Simethicone [Bicarsim] 80 mg PO BID 11/23/17 11/23/17 Simvastatin [Zocor] 20 mg PO DAILY 11/23/17 11/23/17 Review of Systems - Physician Review All systems were reviewed & negative as marked: Yes - Review of Systems Skin: Laceration (4 Vicryl sutures present at the left side of the forehead) Physical Exam Temperature: Afebrile Blood Pressure: Normal Pulse: Regular Respiratory Rate: Normal Appearance: Positive for: Well-Appearing, Non-Toxic, Comfortable Mental Status: Positive for: Alert and Oriented X 3 - Systems Exam Head: Present: Atraumatic, Normocephalic, Laceration (healed linear laceration with 4 sutures present) Pupils: Present: PERRL Extroacular Muscles: Present: EOMI Conjunctiva: Present: Normal Mouth: Present: Moist Mucous Membranes Neck: Present: Normal Range of Motion Respiratory/Chest: Present: Clear to Auscultation, Good Air Exchange. No: Respiratory Distress Cardiovascular: Present: Regular Rate and Rhythm, Normal S1, S2. No: Murmurs Abdomen: Present: Normal Bowel Sounds. No: Tenderness, Distention, Peritoneal Signs Upper Extremity: Present: Normal Inspection. No: Cyanosis, Edema Lower Extremity: Present: Normal Inspection. No: Edema Neurological: Present: GCS=15, CN II-XII Intact, Speech Normal Skin: Present: Warm, Laceration (linear healed laceration present at left pentecostal) Psychiatric: Present: Alert, Oriented x 3, Normal Insight, Normal Concentration Medical Decision Making ED Course and Treatment: 12/17/17 10:04 Progress Notes Suture removal completed with patient advised to continue supportive measures at home. He will follow up with his PCP. He is stable for discharge. Disposition/Present on Arrival - Present on Arrival Any Indicators Present on Arrival: No History of DVT/PE: No History of Uncontrolled Diabetes: No Urinary Catheter: No History of Decub. Ulcer: No History Surgical Site Infection Following: None - Disposition Have Diagnosis and Disposition been Completed?: Yes Diagnosis: Encounter for removal of sutures Disposition: HOME/ ROUTINE Disposition Time: 09:35 Patient Plan: Discharge Condition: IMPROVED Discharge Instructions (ExitCare): Stitches Removal, Staple Removal Referrals: Radha Conklin MD [Medical Doctor] - Follow up with [place] [facility] [place] [facility] [place] - Follow up with primary
[2017-12-17 09:52] VITALS: BP 130/82; PULSE 72; RESP 18; O2SAT 98
[2017-12-17 09:56] VITALS: TEMP 98.2
== END 2017-12-17 09:57 | disposition home or self-care (01) ==
LOC: ED 08:56
DX: Z48.02 Encounter for removal of sutures (principal); E11.9 Type 2 diabetes mellitus without complications; I10 Essential (primary) hypertension; I25.10 Atherosclerotic heart disease of native coronary artery without angina pectoris; Z87.891 Personal history of nicotine dependence

== ENCOUNTER 2017-12-26 07:41 | Day surgery (SDC) | payer MEDICAID ==
[2017-12-26 07:41] VITALS: BMI 34.9
--- NOTE | 2017-12-26 07:59 | ED PDOC ---
Arrival/HPI - General Chief Complaint: Chest Pain Time Seen by Provider: 12/26/17 07:50 Historian: Patient, Spouse, Family - History of Present Illness Time/Duration: > month Symptom Onset: Gradual Symptom Course: Unchanged Quality: Aching Severity Level: Mild Associated Symptoms (Text): 12/26/17 07:56 Patient had cardiac catheterization and stent placement approximately 6 weeks ago. He has had intermittent pain since then. He had repeat cardiac catheterization approximately 4 weeks ago which showed patent stents unchanged stenosis. He has had continued intermittent pain since that time. He was directed to the emergency department this morning by his color straining bag washer, Dr Dewey. He did take his aspirin and Plavix this morning. He has had some mild dyspnea on exertion. No dizziness or lightheadedness. He's had a mild nonproductive cough. No nausea or vomiting. No diaphoresis. Past Medical History - Infectious Disease Hx of Infectious Diseases: None - Cardiac Hx [place]: Yes Hx Hypertension: Yes Other/Comment: cardiac stent - Pulmonary Hx Respiratory Disorders: Yes Hx Chronic Obstructive Pulmonary Disease (COPD): Yes - Neurological Hx Neurological Disorder: No - HEENT Hx HEENT Disorder: No - Renal Hx Renal Disorder: Yes Hx Kidney Stones: Yes - Endocrine/Metabolic Hx Endocrine Disorders: Yes Hx Diabetes Mellitus Type 2: Yes - Hematological/Oncological Hx Blood Disorders: Yes Hx Shingles: Yes (9 months ago has residual pain at times) - Integumentary Hx Dermatological Disorder: No - Musculoskeletal/Rheumatological Hx Musculoskeletal Disorders: No Hx Falls: No - Gastrointestinal Hx Gastrointestinal Disorders: Yes Hx Gastroesophageal Reflux: Yes - Genitourinary/Gynecological Hx Genitourinary Disorders: Yes - Psychiatric Hx Psychophysiologic Disorder: No Hx Substance Use: No - Surgical History Hx Cardiac Catheterization: Yes (stents x7) - Anesthesia Hx Anesthesia Reactions: No Hx Malignant Hyperthermia: No - Suicidal Assessment Feels Threatened In Home Enviroment: No Family/Social History - Physician Review Nursing Documentation Reviewed: Yes Family/Social History: Unknown Family HX Smoking Status: Former Smoker Hx Alcohol Use: No Hx Substance Use: No Hx Substance Use Treatment: No Allergies/Home Meds Allergies/Adverse Reactions: Allergies apple Allergy (Verified 12/17/17 09:30) RASH FACIAL SWELLING peach Allergy (Verified 12/17/17 09:30) SWELLING pear Allergy (Verified 12/17/17 09:30) SWELLING Home Medications: Home Meds Medication Instructions Recorded Confirmed Aspirin [Adult Low Dose Aspirin EC] 81 mg PO DAILY 06/20/16 12/26/17 Fenofibrate,Micronized 134 mg PO DAILY 06/20/16 12/26/17 [Fenofibrate] Gabapentin 600 mg PO BID 08/17/16 12/26/17 Alogliptin Alexis/Metformin HCl 1 tab PO BID 11/16/17 12/26/17 [Alogliptin-Metformin 12.5-1000] Losartan [Cozaar] 100 mg PO DAILY 11/16/17 12/26/17 Cholecalciferol [Vitamin D 1000 IU] 50,000 iu PO QWK 11/23/17 12/26/17 Dicyclomine [Bentyl] 20 mg PO DAILY 11/23/17 12/26/17 Glipizide [Glipizide ER] 2.5 mg PO DAILY 11/23/17 12/26/17 Lidocaine 5% [Lidoderm] 1 patch TOP DAILY 11/23/17 12/26/17 Metoprolol Tartrate [Lopressor] 50 mg PO BID 11/23/17 12/26/17 Prilosec 10 mg PO DAILY 11/23/17 12/26/17 Simethicone [Bicarsim] 80 mg PO BID 11/23/17 12/26/17 Simvastatin [Zocor] 20 mg PO DAILY 11/23/17 12/26/17 Clopidogrel [Plavix] 75 mg PO DAILY 12/26/17 12/26/17 Isosorbide Mononitrate [Imdur] 60 mg PO DAILY 12/26/17 12/26/17 Review of Systems - Physician Review All systems were reviewed & negative as marked: Yes - Review of Systems Constitutional: Fatigue. absent: Fevers Respiratory: SOB, Cough. absent: Wheezing Cardiovascular: Chest Pain. absent: Palpitations, Syncope Gastrointestinal: absent: Abdominal Pain, Diarrhea, Nausea, Vomiting Neurological: absent: Headache, Dizziness, Focal Weakness Physical Exam Temperature: Afebrile Blood Pressure: Normal Pulse: Regular Respiratory Rate: Normal Appearance: Positive for: Well-Appearing, Non-Toxic, Comfortable Pain Distress: None Mental Status: Positive for: Alert and Oriented X 3 - Systems Exam Head: Present: Atraumatic, Normocephalic Pupils: Present: PERRL Extroacular Muscles: Present: EOMI Conjunctiva: Present: Normal Mouth: Present: Moist Mucous Membranes Pharnyx: No: ERYTHEMA, EXUDATE, TONSILS ENLARGED Neck: Present: Normal Range of Motion Respiratory/Chest: Present: Clear to Auscultation, Good Air Exchange. No: Respiratory Distress, Accessory Muscle Use Cardiovascular: Present: Regular Rate and Rhythm, Normal S1, S2. No: Murmurs Abdomen: No: Tenderness, Distention, Peritoneal Signs, Rebound, Guarding Upper Extremity: Present: Normal Inspection. No: Cyanosis, Edema Lower Extremity: Present: Normal Inspection. No: Edema Neurological: Present: GCS=15, CN II-XII Intact, Speech Normal, Motor Func Grossly Intact Skin: Present: Warm, Dry, Normal Color. No: Rashes Psychiatric: Present: Alert, Oriented x 3, Normal Insight, Normal Concentration Medical Decision Making ED Course and Treatment: 12/26/17 07:59 EKG shows normal sinus rhythm rate approximately [address] or T-wave changes. - RAD Interpretation Narrative RAD Interpretations (Text): 12/26/17 09:08 CXR reviewed by radiologist, shows: FINDINGS: LUNGS: No active pulmonary disease. PLEURA: No significant pleural effusion identified, no pneumothorax apparent. CARDIOVASCULAR: No aortic atherosclerotic calcification present. Normal cardiac size. No pulmonary vascular congestion. OSSEOUS STRUCTURES: No significant abnormalities. VISUALIZED UPPER ABDOMEN: Normal. OTHER FINDINGS: None. IMPRESSION: No active disease. Golf Course Assistant: Radiologist Disposition/Present on Arrival - Present on Arrival Any Indicators Present on Arrival: No History of DVT/PE: No History of Uncontrolled Diabetes: No Urinary Catheter: No History of Decub. Ulcer: No History Surgical Site Infection Following: None - Disposition Have Diagnosis and Disposition been Completed?: Yes Diagnosis: Chest pain Disposition: HOSPITALIZED Disposition Time: 08:25 Patient Plan: Observation, Telemetry Patient Problems: Current Active Problems Problem Status Onset Chest pain Acute Condition: GOOD
[2017-12-26 08:24] LABS: BASO # 0.02 K/mm3 (0.0-2.0); BASO % 0.3 % (0.0-3.0); EOS # 0.1 (0.0-0.7); EOS % 1.5 % (1.5-5.0); GRAN # 3.85 (1.4-6.5); HEMOGLOBIN 14.6 g/dL (14.0-18.0); LYMPH # 2.1 (1.2-3.4); LYMPH % 32.3 % (22.0-35.0); MEAN CELL VOLUME 82.9 fl (80.0-105.0); MEAN CORPUSCULAR HEMOGLOBIN 28.1 pg (25.0-35.0); MEAN CORPUSCULAR HGB CONC 33.9 g/dl (31.0-37.0); MEAN PLATELET VOLUME 10.4 fl (7.0-11.0); MONO # 0.5 (0.1-0.6); MONO % 6.9 % (1.0-6.0); RBC 5.2 10^6/uL (3.5-6.1); RED CELL DISTRIBUTION WIDTH 12.9 % (11.5-14.5); WHITE BLOOD COUNT 6.5 10^3/uL (4.5-11.0)
[2017-12-26 08:35] LABS: ALB/GLOB RATIO 1.3 (1.1-1.8); ALBUMIN 4.6 g/dL (3.0-4.8); ALT/SGPT 29 U/L (7-56); AST/SGOT 27 U/L (17-59); BLOOD UREA NITROGEN 15 mg/dL (7-21); CALCIUM 9.5 mg/dL (8.4-10.5); GFR NON-AFRICAN AMERICAN > 60
[2017-12-26 08:36] LABS: INR 1.02; PARTIAL THROMBOPLASTIN TIME 28.5 Seconds (25.1-36.5); PROTHROMBIN TIME 11.7 SECONDS (9.4-12.5)
--- NOTE | 2017-12-26 08:38 | RAD ---
Date of service: 12/26/2017 HISTORY: cp COMPARISON: 11/23/2017 FINDINGS: LUNGS: No active pulmonary disease. PLEURA: No significant pleural effusion identified, no pneumothorax apparent. CARDIOVASCULAR: No aortic atherosclerotic calcification present. Normal cardiac size. No pulmonary vascular congestion. OSSEOUS STRUCTURES: No significant abnormalities. VISUALIZED UPPER ABDOMEN: Normal. OTHER FINDINGS: None. IMPRESSION: No active disease.
[2017-12-26 08:45] LABS: TROPONIN I < 0.01 ng/mL
[2017-12-26] MEDS ORDERED: Iodixanol 320 MG/ML 200 ML BOTTLE IV ONE (10:18)
[2017-12-26] MEDS ORDERED: Midazolam 2 MG/2 ML VIAL ONE ×3 (10:18→10:58)
[2017-12-26] MEDS ORDERED: Lidocaine 2% Inj (20ml) ONE (10:18)
[2017-12-26] MEDS ORDERED: Iodixanol 320 MG/ML 100 ML BOTTLE IV ONE ×2 (10:18→11:12)
[2017-12-26] MEDS ORDERED: Heparin 2,000 ML IV ONE (10:19)
[2017-12-26] MEDS ORDERED: Sodium Chloride 0.9% 1,000 ML IV SCH (12:00)
--- NOTE | 2017-12-26 13:06 | CARDCATH ---
PROCEDURE DATE: 12/26/2017 CARDIAC CATHETERIZATION HISTORY: The patient is a 62-year-old male with documented multivessel CAD with angioplasty earlier this year, who presents to the emergency room with progressive exertional angina progressing to angina at rest. Because of his multiple cardiac risk factors and documented CAD, an emergency cardiac catheterization was performed. PROCEDURE: Left heart catheterization with coronary arteriography, left ventriculogram followed by PTCA and stent of diagonal vessel of the LAD. The right femoral artery was cannulated with a 6-English sheath. There were no complications. I performed moderate sedation, which included the presence of an independent trained observer that assisted in monitoring the patient's level of consciousness and physiologic status. After administration of Versed and fentanyl, my intra service time was 30 minutes. The findings on catheterization revealed a left ventricle that contracted normally. Estimated ejection fraction is 60%. His coronary anatomy revealed a right dominant circulation. The RCA revealed diffuse atherosclerosis with patent stent. The left main artery was unremarkable. The circumflex artery and obtuse marginal branches revealed intimal irregularities with patent stents. The LAD revealed patent stents in the proximal and midportion. In the midportion prior to the second stent, there was a 60% stenosis noted. The first diagonal at the previous stent site revealed a 90% stenosis at its ostium, followed by 80% stenosis in its proximal portion. The patient was started on intravenous Angiomax on the fluoroscopic guide, the guiding catheter was placed in the ostium of left main. An 0.014 ATW wire was used to cross the diagonal lesion. This was followed by dilatation with a 2 balloon, then a 2.5 balloon. With the use of a guideliner for better support, a 2.5 x 15 mm drug-eluting stent was placed and deployed at the ostium of the diagonal into the proximal diagonal vessel. After implantation of the stent, repeat coronary arteriography revealed an excellent result with no residual stenosis and IDALIA 3 flow. The wire was then brought down to the LAD and balloon angioplasty was performed in the mid LAD lesion. The patient tolerated the procedure well. Angio-Seal was used to close the femoral artery site. The PRU was measured at 147, which is therapeutic. IMPRESSION: 1. Successful percutaneous transluminal coronary angioplasty and stent of critically stenosed diagonal vessel. 2. Emergency cardiac catheterization reveals patent stents in all three coronary arteries with diagonal lesions as noted. 3. Normal left ventricular function. PLAN: Given these findings, the patient will need to remain on aspirin indefinitely and Plavix for at least a year and undergo a strict cardiac risk reduction program. Ar Dewey MD
[2017-12-26 17:48] VITALS: RESP 18
--- NOTE | 2017-12-26 20:43 | CARD ---
APPROVED REPORT Date of service: 12/26/2017 EKG Measurement Heart [id number] <Conclusion> Normal sinus rhythm Normal ECG
--- NOTE | 2017-12-26 21:50 | HP ---
DATE OF EXAM: 12/26/2017 HISTORY OF PRESENT ILLNESS: I was called by Dr. Dewey, the absorption plant operator, asked me to do a history and physical and to see Mr. Miranda in room 274. He is a 62-year-old man who had a cardiac catheterization and stent placement about 6 weeks ago. He had intermittent pain since then. He has repeat cardiac catheterization approximately 4 weeks ago which showed stents unchanged, stenosis. He had continued intermittent pain. He came to the emergency room today. Dr. Dewey took him to the animal laboratory technician and gave him another stent. PAST MEDICAL HISTORY: He has a past medical history of an ID of coronary artery disease, hypertension, cardiac stents, COPD, kidney stones, diabetes. He has had shingles, occasionally he has residual pain. He has gastroesophageal reflux disease and total of seven stents in the cardiac catheterization on his heart. FAMILY HISTORY: He has a cardiac disease in the family. SOCIAL HISTORY: Former smoker. No alcohol. No drugs. ALLERGIES: APPLE, PEACH AND PEAR. MEDICATIONS: He takes aspirin, fenofibrate for high triglycerides, gabapentin, metformin, alogliptin, Cozaar, vitamin D, Bentyl, glipizide, Lidoderm patch, Lopressor, Prilosec, simethicone, Zocor, Plavix and Imdur. REVIEW OF SYSTEMS: He has fatigue, gets short of breath while coughing. Chest pain. No palpitations. No syncope. No abdominal pain, nausea, vomiting or constipation. No headache or dizziness. No skin issues. Not anxious or depressed. He is not worried. He understands what is going on. PHYSICAL EXAMINATION: VITAL SIGNS: He had 97.9 temp, 76 pulse, 112/72 blood pressure, 20 respiratory rate and 99% O2 sat on oxygen. HEENT: His head is atraumatic, normocephalic. His extraocular muscles are intact. Pupils equal, reactive to light and accommodation. Throat is clear, no erythema, moist. NECK: Supple. No JVD. HEART: Regular rate. Normal S1, S2. LUNGS: Decreased breath sounds bilaterally, but clear to auscultation. No wheezes, no rhonchi, no rales, but he is a long-term smoker who quit. ABDOMEN: Soft, nontender. Positive bowel sounds. No guarding, no rebound, no CVA tenderness. EXTREMITIES: Have no edema. He can move all four extremities well. NEUROLOGIC: GCS is 15. Cranial nerves II through XII grossly intact. Speech is normal. Motor function grossly intact. He can move all four extremities, he can walk well. He is alert and oriented x3. SKIN: Warm and dry. No apparent rashes or ulcers appreciated. LYMPHS: Thyroid midline. No palpable appreciable lymphadenopathy. LABORATORY DATA: He had a bunch of tests done. He had a chest x-ray that showed no active disease. He had blood test. He has 141 sodium, potassium 4.3, BUN 15, creatinine 1.1, GFR is greater than 60, sugar is 136. I will put him on insulin coverage. He had also asked for an Ambien at nighttime to help him sleep. Calcium is 9.5, magnesium 2.2, total bili is 0.6. AST is 27, ALT is 29, and alk phos 49. Lactate dehydrogenase is 333. Total creatine kinase is 48. Troponin I is less than 0.01. Total protein is 8.2, albumin is 4.6, globulin 3.6. INR is 1.02. He has 6.5 white count, 14.6 hemoglobin, 43.1 hematocrit with 231,000 platelets. Currently, he is on Ambien, aspirin, Plavix and IV fluids. He will have labs checked tomorrow morning, get his Ambien tonight to help him sleep. He will be on insulin sliding scale, but he would not be on his medications due to the dye that he had. He was here for CAD and stent placement on top of his diabetes and COPD, and hope he will do well tonight. If he does well, the plan will be to discharge him tomorrow morning. Abhinav Calle DO
[2017-12-26] MEDS: Insulin Reg-MEDIUM-Coverage SC SCH (22:00)
[2017-12-27 06:04] VITALS: BP 121/76; PULSE 72; TEMP 98.2; O2SAT 98
[2017-12-27 06:25] LABS: HEMOGLOBIN 14.3 g/dL (14.0-18.0); MEAN CELL VOLUME 83.4 fl (80.0-105.0); MEAN CORPUSCULAR HEMOGLOBIN 27.9 pg (25.0-35.0); MEAN CORPUSCULAR HGB CONC 33.5 g/dl (31.0-37.0); RBC 5.12 10^6/uL (3.5-6.1); WHITE BLOOD COUNT 8.5 10^3/uL (4.5-11.0)
[2017-12-27 06:54] LABS: ALB/GLOB RATIO 1.2 (1.1-1.8); ALBUMIN 4.3 g/dL (3.0-4.8); ALT/SGPT 27 U/L (7-56); AST/SGOT 32 U/L (17-59); BLOOD UREA NITROGEN 12 mg/dL (7-21); CALCIUM 9.5 mg/dL (8.4-10.5); GFR NON-AFRICAN AMERICAN > 60
[2017-12-27] MEDS: Insulin Reg-MEDIUM-Coverage SC SCH (07:43)
--- NOTE | 2017-12-27 08:37 | PN ---
DATE: 12/27/2017 SUBJECTIVE: The patient is chest pain free. He is status post PTCA and stent of a critically stenosed diagonal vessel of the LAD stent. PHYSICAL EXAMINATION: VITAL SIGNS: Blood pressure 121/76, heart rates in the 70s. NECK: Negative JVD. LUNGS: Without rales. HEART: S1, S2. EXTREMITIES: Without edema. LABORATORY DATA: Potassium is 3.9, glucose is 132, hemoglobin is 14.3. IMPRESSION: 1. Stable post percutaneous transluminal coronary angioplasty and stent. 2. Coronary artery disease. 3. Recurrent angina which is now resolved. 4. Hypercholesterolemia. 5. Diabetes mellitus. Given these findings, the patient is stable for discharge. He needs to remain on aspirin indefinitely and Plavix for at least a year. He needs to undergo a cardiac risk reduction program which include low carbohydrates, weight loss as well as enrolling in the exercise program. Ar Dewey MD
--- NOTE | 2017-12-27 10:06 | DS ---
HISTORY OF PRESENT ILLNESS: I saw him sitting out of bed to chair this morning. He is actually feeling well, doing well. No chest pain. No shortness of breath. No abdominal pain. He is in good spirits. He had a cardiac cath yesterday with Dr. Dewey and stents were placed. He will be followed up on the outpatient with Dr. Dewey. He was kept overnight. He had a good night. PHYSICAL EXAMINATION: VITAL SIGNS: He has 98.2 temperature, 72 pulse, 121/76 blood pressure, 18 respiratory rate and 90% O2 sat on room air. HEENT: Head is atraumatic, normocephalic. HEART: Regular rate. LUNGS: Clear to auscultation. ABDOMEN: Soft. EXTREMITIES: No edema. He is doing better. LABORATORY DATA: Were 8.5 white count, 14.3 hemoglobin, 42.7 hematocrit with 216,000 platelets. He has 139 sodium, potassium 3.9, BUN 12, creatinine 1.1, GFR is greater than 60, sugar is 126, calcium is 9.5. Total bili is 0.7, AST is 32, ALT is 27, alk phos 48. Troponin I was less than 0.01, total protein 7.8. He will be discharged today status post CAD, cardiac stent placement. He will follow up with his primary care doctor, Dr. Dewey, on the outpatient. Presently he is on Ambien, aspirin and Plavix. He will go back on his regular medications and he is being discharged home. Abhinav Calle DO
== END 2017-12-27 09:51 | disposition home or self-care (01) ==
LOC: ED 07:41 → CATH 08:35 → 2RSO 11:53 → CATH 12-27 09:51
PROVIDERS: ATTEND Internal Medicine Cardiovascular Disease
DX: I25.118 Atherosclerotic heart disease of native coronary artery with other forms of angina pectoris (principal); I25.2 Old myocardial infarction; I10 Essential (primary) hypertension; J44.9 Chronic obstructive pulmonary disease, unspecified; E11.9 Type 2 diabetes mellitus without complications; E78.00 Pure hypercholesterolemia, unspecified; K21.9 Gastro-esophageal reflux disease without esophagitis; Z87.891 Personal history of nicotine dependence; Z79.02 Long term (current) use of antithrombotics/antiplatelets; Z79.82 Long term (current) use of aspirin; Z79.84 Long term (current) use of oral hypoglycemic drugs; Z82.49 Family history of ischemic heart disease and other diseases of the circulatory system
CPT/HCPCS: 36415 ×2; 71045; 80053 ×2; 82550; 82948 ×2; 83615; 83735; 84484; 85025; 85027; 85576; 85610; 85730; 92920; 93005; 93458; 99152; 99153; 99285; C1725 ×3; C1760; C1769 ×2; C1874; C1887 ×2; C2629; C9600; J0583; J1644; J2250; J3010; J7030; Q9966; Q9967

== ENCOUNTER 2018-03-14 00:37 | Observation (INO) | payer MEDICAID ==
[2018-03-14] MEDS ORDERED: Morphine 2 mg/ml ISec IVP STA (00:48)
[2018-03-14 01:15] LABS: EOS % 0.1 % (1.5-5.0); LYMPH # 1.2 (1.2-3.4); LYMPH % 12.6 % (22.0-35.0); MEAN CELL VOLUME 82.7 fl (80.0-105.0); MEAN CORPUSCULAR HEMOGLOBIN 27.9 pg (25.0-35.0); MEAN CORPUSCULAR HGB CONC 33.8 g/dl (31.0-37.0); MEAN PLATELET VOLUME 10.6 fl (7.0-11.0); MONO # 0.1 (0.1-0.6); MONO % 0.9 % (1.0-6.0); RBC 5.37 10^6/uL (3.5-6.1); RED CELL DISTRIBUTION WIDTH 13.2 % (11.5-14.5); WHITE BLOOD COUNT 9.5 10^3/uL (4.5-11.0)
[2018-03-14 01:19] LABS: INR 1.09; PARTIAL THROMBOPLASTIN TIME 31.7 Seconds (26.9-38.3); PROTHROMBIN TIME 12.1 SECONDS (9.4-12.5)
[2018-03-14 01:22] LABS: ALB/GLOB RATIO 1.2 (1.1-1.8); ALBUMIN 4.6 g/dL (3.0-4.8); ALT/SGPT 22 U/L (7-56); AST/SGOT 25 U/L (17-59); BLOOD UREA NITROGEN 18 mg/dL (7-21); GFR NON-AFRICAN AMERICAN > 60
[2018-03-14 01:23] LABS: D DIMER < 200 ng/mlDDU (0-243)
[2018-03-14 01:34] LABS: TROPONIN I < 0.01 ng/mL
--- NOTE | 2018-03-14 01:34 | ED PDOC ---
Arrival/HPI - General Chief Complaint: Chest Pain Time Seen by Provider: 03/14/18 00:39 Historian: Patient - History of Present Illness Narrative History of Present Illness (Text): 03/14/18 01:31 62 year old male, whose past medical history includes hypertension, COPD, OR, CAD with 8 cardiac stents, diabetes, and GERD, presents to the Emergency department left sided chest pain, for 3 hours. Patient informs pain is non-radiating. Patient states he has felt these symptoms many times before. Patient denies any fevers, chills, headache, dizziness, abdominal pain, nausea, vomiting, diarrhea, back pain, neck pain, or any other complaint. PMD: Dr. Crum, [facility] Specialist: Dr. Dewey Time/Duration: 1-3 hours Symptom Onset: Gradual Symptom Course: Unchanged Quality: Aching Activities at Onset: Light Context: Home Past Medical History - Provider Review Nursing Documentation Reviewed: Yes - Infectious Disease Hx of Infectious Diseases: None - Cardiac Hx Cardiac Disorders: Yes Hx OR: Yes Hx Hypertension: Yes Other/Comment: cardiac stent - Pulmonary Hx Respiratory Disorders: Yes Hx Chronic Obstructive Pulmonary Disease (COPD): Yes - Neurological Hx Neurological Disorder: No - HEENT Hx HEENT Disorder: No - Renal Hx Renal Disorder: Yes Hx Kidney Stones: Yes - Endocrine/Metabolic Hx Endocrine Disorders: Yes Hx Diabetes Mellitus Type 2: Yes - Hematological/Oncological Hx Blood Disorders: Yes Hx Shingles: Yes (9 months ago has residual pain at times) - Integumentary Hx Dermatological Disorder: No - Musculoskeletal/Rheumatological Hx Musculoskeletal Disorders: No Hx Falls: No - Gastrointestinal Hx Gastrointestinal Disorders: Yes Hx Gastroesophageal Reflux: Yes - Genitourinary/Gynecological Hx Genitourinary Disorders: Yes - Psychiatric Hx Psychophysiologic Disorder: No Hx Substance Use: No - Surgical History Hx Cardiac Catheterization: Yes (stents x8) - Anesthesia Hx Anesthesia Reactions: No Hx Malignant Hyperthermia: No - Suicidal Assessment Feels Threatened In Home Enviroment: No Family/Social History - Physician Review Nursing Documentation Reviewed: Yes Family/Social History: No Known Family HX Smoking Status: Former Smoker Hx Alcohol Use: No Hx Substance Use: No Hx Substance Use Treatment: No Allergies/Home Meds Allergies/Adverse Reactions: Allergies apple Allergy (Verified 12/17/17 09:30) RASH FACIAL SWELLING peach Allergy (Verified 12/17/17 09:30) SWELLING pear Allergy (Verified 12/17/17 09:30) SWELLING Home Medications: Home Meds Medication Instructions Recorded Confirmed Aspirin [Adult Low Dose Aspirin EC] 81 mg PO DAILY 06/20/16 03/14/18 Alogliptin Alexis/Metformin HCl 1 tab PO BID 11/16/17 03/14/18 [Alogliptin-Metformin 12.5-1000] Losartan [Cozaar] 100 mg PO DAILY 11/16/17 03/14/18 Cholecalciferol [Vitamin D 1000 IU] 50,000 iu PO QWK 11/23/17 03/14/18 Metoprolol Tartrate [Lopressor] 50 mg PO BID 11/23/17 03/14/18 Simvastatin [Zocor] 20 mg PO DAILY 11/23/17 03/14/18 Clopidogrel [Plavix] 75 mg PO DAILY 12/26/17 03/14/18 Fluticasone Propionate [Flovent 50 mcg IH PRN PRN 03/14/18 03/14/18 Diskus] Gabapentin [Neurontin] 2 tab PO HS 03/14/18 03/14/18 Multivitamin with Iron [Tab-A-Izabela 1 each PO DAILY 03/14/18 03/14/18 with Iron] Pantoprazole Sodium [Protonix] 40 mg PO DAILY 03/14/18 03/14/18 Ranolazine [Ranexa] 500 mg PO DAILY 03/14/18 03/14/18 Vitamin B Complex [Vitamin B50 1 cap PO DAILY 03/14/18 03/14/18 Super Complex] Review of Systems - Physician Review All systems were reviewed & negative as marked: Yes - Review of Systems Constitutional: absent: Fevers Cardiovascular: Chest Pain Gastrointestinal: absent: Abdominal Pain, Diarrhea, Nausea, Vomiting Musculoskeletal: absent: Back Pain, Neck Pain Neurological: absent: Headache, Dizziness Physical Exam Vital Signs Reviewed: Yes Vital Signs Temp Pulse Resp BP Pulse Ox 03/14/18 01:24 100 H 22 142/89 97 03/14/18 00:43 97.5 F L 102 H 20 155/87 H 96 Temperature: Afebrile Blood Pressure: Hypertensive Pulse: Tachycardic Respiratory Rate: Normal Appearance: Positive for: Well-Appearing, Non-Toxic, Comfortable Pain Distress: None Mental Status: Positive for: Alert and Oriented X 3 Finger Stick Blood Glucose: 303 - Systems Exam Head: Present: Atraumatic, Normocephalic Pupils: Present: PERRL Extroacular Muscles: Present: EOMI Conjunctiva: Present: Normal Mouth: Present: Moist Mucous Membranes Neck: Present: Normal Range of Motion Respiratory/Chest: Present: Clear to Auscultation, Good Air Exchange. No: Respiratory Distress, Accessory Muscle Use Cardiovascular: Present: Regular Rate and Rhythm, Normal S1, S2. No: Murmurs Abdomen: No: Tenderness, Distention, Peritoneal Signs Back: Present: Normal Inspection Upper Extremity: Present: Normal Inspection. No: Cyanosis, Edema Lower Extremity: Present: Normal Inspection. No: Edema Neurological: Present: GCS=15, CN II-XII Intact, Speech Normal Skin: Present: Warm, Dry, Normal Color. No: Rashes Psychiatric: Present: Alert, Oriented x 3, Normal Insight, Normal Concentration Medical Decision Making ED Course and Treatment: 03/14/18 01:36 Impression: 62 year old male presents with chest pain Plan: -- EKG -- Chest X-ray -- Morphine -- O2 Nasal -- Urinalysis -- Reassess and disposition Prior Visits: Notes and results from previous visits were reviewed. pt improved with meds case d/w de abhishek and medical residents - Lab Interpretations Lab Results: PT 12.1 SECONDS (9.4-12.5) 03/14/18 00:54 INR 1.09 03/14/18 00:54 APTT 31.7 Seconds (26.9-38.3) 03/14/18 00:54 D-Dimer, Quantitative < 200 ng/mlDDU (0-243) 03/14/18 00:54 Total Bilirubin 0.6 mg/dL (0.2-1.3) 03/14/18 00:54 AST 25 U/L (17-59) 03/14/18 00:54 ALT 22 U/L (7-56) 03/14/18 00:54 Alkaline Phosphatase 103 U/L (38-126) 03/14/18 00:54 Total Protein 8.2 g/dL (5.8-8.3) 03/14/18 00:54 Albumin 4.6 g/dL (3.0-4.8) 03/14/18 00:54 Globulin 3.6 gm/dL 03/14/18 00:54 Albumin/Globulin Ratio 1.2 (1.1-1.8) 03/14/18 00:54 - RAD Interpretation Radiology Orders: 03/14/18 00:49 CHEST PORTABLE [RAD] Stat - EKG Interpretation EKG Interpretation (Text): sinus tachycardia rate 104 1 av block nssts changes - Medication Orders Current Medication Orders: Discontinued Medications Morphine Sulfate (Morphine) 2 mg IVP STAT STA Stop: 03/14/18 00:49 Last Admin: 03/14/18 00:59 Dose: 2 mg MAR Pain Assessment Document 03/14/18 00:59 CNR (Rec: 03/14/18 01:02 CNR [id number]) Pain Reassessment Is this a pain reassessment? No IVP Administration Document 03/14/18 00:59 CNR (Rec: 03/14/18 01:02 CNR [id number]) Charges for Administration # of IVP Administrations 1 - Scribe Statement The provider has reviewed the documentation as recorded by the Jomar Bowen Provider Scribe Attestation: All medical record entries made by the Scribvikas were at my direction and personally dictated by me. I have reviewed the chart and agree that the record accurately reflects my personal performance of the history, physical exam, medical decision making, and the department course for this patient. I have also personally directed, reviewed, and agree with the discharge instructions and disposition. Disposition/Present on Arrival - Present on Arrival Any Indicators Present on Arrival: No History of DVT/PE: No History of Uncontrolled Diabetes: No Urinary Catheter: No History of Decub. Ulcer: No History Surgical Site Infection Following: None - Disposition Have Diagnosis and Disposition been Completed?: Yes Diagnosis: CAD (coronary artery disease), Chest pain Disposition: HOSPITALIZED Disposition Time: 01:40 Condition: GOOD
[2018-03-14 01:42] LABS: URINE BILIRUBIN NEGATIVE (NEGATIVE); URINE BLOOD NEGATIVE (NEGATIVE); URINE GLUCOSE (UA) >=1000 mg/dL (NEGATIVE); URINE LEUKOCYTE ESTERASE NEGATIVE Leu/uL (NEGATIVE); URINE PROTEIN TRACE mg/dL (<30 mg/dL); URINE UROBILINOGEN 0.2 E.U./dL (<1 E.U./dL)
[2018-03-14 01:46] LABS: URINE APPEARANCE CLEAR (CLEAR); URINE COLOR YELLOW (YELLOW)
[2018-03-14 02:13] LABS: URINE EPITHELIAL CELLS 0 - 2 /hpf (0-5); URINE RBC 0 - 2 /hpf (0-2); URINE WBC 0 - 2 /hpf (0-6)
[2018-03-14] MEDS ORDERED: Dextrose 50% SYRINGE Inj (50 ml) IV PRN (03:07)
[2018-03-14] MEDS: Sodium Chloride 0.9% 1,000 ML IV SCH ×2 (03:17→17:50)
--- NOTE | 2018-03-14 03:17 | CP.PCM.HP ---
<Randall Alexis - Last Filed: 03/14/18 04:28> History of Present Illness - History of Present Illness History of Present Illness: Medicine History and Physical for Hospitalist Service, Dr. Nehemiah Alexis, DO PGY-1 This is a 62 y o male with PMhx HTN, COPD, VT, CAD s/p 8 stents, DM2, and GERD who presents to the ED today c/o L-sided chest pain x 3 hrs. Pt states he was sleeping at home when the chest pain awoke him from sleep, states it was sudden in onset. Worsens when he lies down flat and exerts himself. States the chest pain has improved since being in the ED but it is still present. States chest pain does not get worse with palpation at affected site. Also states that he has been having progressive dyspnea on exertion for the past 3 months. Denies diaphoresis, fever or chills. States he currently has a cold that has been present since yesterday, only admits to nasal congestion, denies cough. Also admits to several episodes of diarrhea that have been present for the past 2 days; pt states he took an OTC medication at home in the am yesterday and has not had a BM since. Denies headache, n/v/c, abd pain, urinary complaints, LE edema, or other symptoms. PMhx: HTN, COPD, VT, CAD s/p 8 stents, DM2, and GERD PSurgHx: Procedure for kidney stones, colonscopy, endoscopy Allergies: apples, peaches, pears (reaction: mouth numbness) Home meds: Alogliptin-Metformin 1.25-1000 mg bid, Plavix 75 mg daily, Metoprolol tartrate 50 mg bid, Losartan 100 mg daily, Protonix 40 mg daily, Simvastatin 20 mg daily, Vit B complex daily, Ranexa 500 mg daily, ASA 81 mg daily, Neurontin 600 mg 2 tabs at bedtime, Vit D2 50,000 U q weekly Fam hx: Mother suddenly at age 65, Father at age 70 (PMhx unknown) Soc hx: former smoker 1 ppd x 20 y; denies EtOH or illicit drug use PMD: Dr. Mackenzie Crum Primary industrial management teacher: Dr. Dewey Present on Admission - Present on Admission Any Indicators Present on Admission: No History of DVT/PE: No History of Uncontrolled Diabetes: No Urinary Catheter: No Decubitus Ulcer Present: No Review of Systems - Constitutional Constitutional: absent: Chills, Fever, Night Sweats - EENT Eyes: absent: Change in Vision - Cardiovascular Cardiovascular: Chest Pain, Dyspnea on Exertion. absent: Pain Radiating to Arm/Neck/Jaw, Leg Edema, Palpitations, Syncope - Respiratory Respiratory: Dyspnea on Exertion. absent: Cough, Wheezing - Gastrointestinal Gastrointestinal: Diarrhea, Loose Stools. absent: Abdominal Pain, Constipation, Nausea, Vomiting Past Patient History - Infectious Disease Hx of Infectious Diseases: None - Past Medical History & Family History Past Medical History?: Yes - Past Social History Smoking Status: Former Smoker - CARDIAC Hx Cardiac Disorders: Yes Hx Heart Attack: Yes Hx Hypertension: Yes Other/Comment: cardiac stent - PULMONARY Hx Respiratory Disorders: Yes Hx Chronic Obstructive Pulmonary Disease (COPD): Yes - NEUROLOGICAL Hx Neurological Disorder: No - HEENT Hx HEENT Problems: No - RENAL Hx Chronic Kidney Disease: Yes Hx Kidney Stones: Yes - ENDOCRINE/METABOLIC Hx Endocrine Disorders: Yes Hx Diabetes Mellitus Type 2: Yes - HEMATOLOGICAL/ONCOLOGICAL Hx Blood Disorders: Yes Hx Shingles: Yes (9 months ago has residual pain at times) - INTEGUMENTARY Hx Dermatological Problems: No - MUSCULOSKELETAL/RHEUMATOLOGICAL Hx Musculoskeletal Disorders: No Hx Falls: No - GASTROINTESTINAL Hx Gastrointestinal Disorders: Yes Hx Gastroesophageal Reflux: Yes - GENITOURINARY/GYNECOLOGICAL Hx Genitourinary Disorders: Yes - PSYCHIATRIC Hx Psychophysiologic Disorder: No Hx Substance Use: No - SURGICAL HISTORY Hx Cardiac Catheterization: Yes (stents x8) - ANESTHESIA Hx Anesthesia Reactions: No Hx Malignant Hyperthermia: No Meds Allergies/Adverse Reactions: Allergies Allergy/AdvReac Type Severity Reaction Status Date / Time apple Allergy RASH Verified 12/17/17 09:30 peach Allergy SWELLING Verified 12/17/17 09:30 pear Allergy SWELLING Verified 12/17/17 09:30 Physical Exam - Constitutional Appears: Non-toxic, No Acute Distress - Head Exam Head Exam: ATRAUMATIC, NORMOCEPHALIC - Eye Exam Eye Exam: EOMI, Normal appearance, PERRL - ENT Exam ENT Exam: Mucous Membranes Moist - Neck Exam Neck exam: Positive for: Full Rom, Normal Inspection. Negative for: Tenderness - Respiratory Exam Respiratory Exam: Clear to Auscultation Bilateral, NORMAL BREATHING PATTERN. absent: Rales, Rhonchi, Wheezes - Cardiovascular Exam Cardiovascular Exam: Tachycardia, +S1, +S2. absent: Gallop, Rubs, Systolic Murmur - GI/Abdominal Exam GI & Abdominal Exam: Normal Bowel Sounds, Soft. absent: Distended, Guarding, Organomegaly, Tenderness - Extremities Exam Extremities exam: Positive for: full ROM, normal capillary refill, normal inspection, pedal pulses present. Negative for: calf tenderness, pedal edema - Neurological Exam Neurological exam: Alert, CN II-XII Intact, Oriented x3, Reflexes Normal - Psychiatric Exam Psychiatric exam: Normal Affect, Normal Mood - Skin Skin Exam: Dry, Intact, Normal Color, Warm Results - Vital Signs Recent Vital Signs: Last Vital Signs Temp 97.5 F L 03/14/18 00:43 Pulse 100 H 03/14/18 02:30 Resp 18 03/14/18 02:30 BP 141/81 03/14/18 02:30 Pulse Ox 96 03/14/18 02:30 - Labs Result Diagrams: 03/14/18 00:54 03/14/18 00:54 Labs: Laboratory Results - last 24 hr 03/14/18 03/14/18 03/14/18 00:54 00:54 00:54 WBC 9.5 RBC 5.37 Hgb 15.0 Hct 44.4 MCV 82.7 MCH 27.9 MCHC 33.8 RDW 13.2 Plt Count 219 MPV 10.6 Neut % (Auto) 86.4 H Lymph % (Auto) 12.6 L Kenton % (Auto) 0.9 L Eos % (Auto) 0.1 L Baso % (Auto) 0.0 Lymph # (Auto) 1.2 Kenton # (Auto) 0.1 Eos # (Auto) 0.0 Baso # (Auto) 0.00 Absolute Neuts (auto) 8.24 H PT 12.1 INR 1.09 APTT 31.7 D-Dimer, Quantitative < 200 Sodium 136 Potassium 4.5 Chloride 102 Carbon Dioxide 24 Anion Gap 15 BUN 18 Creatinine 1.0 Est GFR ( Amer) > 60 Est GFR (Non-Af Amer) > 60 Random Glucose 293 H Calcium 10.0 Magnesium 1.9 Total Bilirubin 0.6 AST 25 ALT 22 Alkaline Phosphatase 103 Lactate Dehydrogenase 386 Total Creatine Kinase 142 Troponin I < 0.01 Total Protein 8.2 Albumin 4.6 Globulin 3.6 Albumin/Globulin Ratio 1.2 Urine Color Urine Appearance Urine pH Ur Specific Rena Lara Urine Protein Urine Glucose (UA) Urine Ketones Urine Blood Urine Nitrate Urine Bilirubin Urine Urobilinogen Ur Leukocyte Esterase Urine RBC Urine WBC Ur Epithelial Cells Urine Bacteria Influenza Typ A,B (EIA) 03/14/18 03/14/18 00:54 01:20 WBC RBC Hgb Hct MCV MCH MCHC RDW Plt Count MPV Neut % (Auto) Lymph % (Auto) Kenton % (Auto) Eos % (Auto) Baso % (Auto) Lymph # (Auto) Kenton # (Auto) Eos # (Auto) Baso # (Auto) Absolute Neuts (auto) PT INR APTT D-Dimer, Quantitative Sodium Potassium Chloride Carbon Dioxide Anion Gap BUN Creatinine Est GFR ( Amer) Est GFR (Non-Af Amer) Random Glucose Calcium Magnesium Total Bilirubin AST ALT Alkaline Phosphatase Lactate Dehydrogenase Total Creatine Kinase Troponin I Total Protein Albumin Globulin Albumin/Globulin Ratio Urine Color Yellow Urine Appearance Clear Urine pH 6.0 Ur Specific Rena Lara 1.015 Urine Protein Trace H Urine Glucose (UA) >=1000 Urine Ketones Negative Urine Blood Negative Urine Nitrate Negative Urine Bilirubin Negative Urine Urobilinogen 0.2 Ur Leukocyte Esterase Negative Urine RBC 0 - 2 Urine WBC 0 - 2 Ur Epithelial Cells 0 - 2 Urine Bacteria None Influenza Typ A,B (EIA) Negative for flu a/b Assessment & Plan - Assessment and Plan (Free Text) Assessment: This is a 62 y o male with PMhx HTN, COPD, VT, CAD s/p 8 stents, DM2, and GERD who presents to the ED today c/o L-sided chest pain x 3 hrs. Plan: Chest pain r/o ACS Admit to tele Trop neg x1 on admission, repeat trops pending D-dimer neg EKG on admission demonstrates sinus tachycardia at 104 bpm, no acute St-t wave changes noted CXR demonstrates no acute disease Echo pending Cardio consulted (Dr. Dewey), recs appreciated Pt currently NPO IVF at 75 cc/hr C/w home meds ASA and Plavix IDALIA score calculated at 3 Tylenol prn for pain TSH pending Diarrhea Pt has not had episode of diarrhea in past 12 hrs Cont to monitor bowel function Hx HLD Lipitor 10 mg PO hs Lipid panel pending Hx HTN C/w home meds: Lopressor 50 mg PO bid, Losartan 100 mg PO daily Hx CAD s/p 8 stents C/w home med Ranexa 500 mg daily Hx GERD C/w home med Protonix daily Hx DM2 Home med Alogliptin-Metformin held on admission ISS-med Fingersticks achs Hypoglycemic protocol A1c pending DVT/GI ppx: Heparin/Protonix Pt seen, examined with, and plan discussed with Dr. Cerna, attending physician. Randall Alexis DO PGY-1, Meat Department Manager Pager #[phone] <Dunia Cerna - Last Filed: 03/14/18 05:03> Results - Vital Signs Recent Vital Signs: Last Vital Signs Temp 97.5 F L 03/14/18 00:43 Pulse 100 H 03/14/18 02:30 Resp 18 03/14/18 02:30 BP 141/81 03/14/18 02:30 Pulse Ox 96 03/14/18 02:30 - Labs Result Diagrams: 03/14/18 00:54 03/14/18 00:54 Labs: Laboratory Results - last 24 hr 03/14/18 03/14/18 03/14/18 00:54 00:54 00:54 WBC 9.5 RBC 5.37 Hgb 15.0 Hct 44.4 MCV 82.7 MCH 27.9 MCHC 33.8 RDW 13.2 Plt Count 219 MPV 10.6 Neut % (Auto) 86.4 H Lymph % (Auto) 12.6 L Kenton % (Auto) 0.9 L Eos % (Auto) 0.1 L Baso % (Auto) 0.0 Lymph # (Auto) 1.2 Kenton # (Auto) 0.1 Eos # (Auto) 0.0 Baso # (Auto) 0.00 Absolute Neuts (auto) 8.24 H PT 12.1 INR 1.09 APTT 31.7 D-Dimer, Quantitative < 200 Sodium 136 Potassium 4.5 Chloride 102 Carbon Dioxide 24 Anion Gap 15 BUN 18 Creatinine 1.0 Est GFR ( Amer) > 60 Est GFR (Non-Af Amer) > 60 Random Glucose 293 H Calcium 10.0 Magnesium 1.9 Total Bilirubin 0.6 AST 25 ALT 22 Alkaline Phosphatase 103 Lactate Dehydrogenase 386 Total Creatine Kinase 142 Troponin I < 0.01 Total Protein 8.2 Albumin 4.6 Globulin 3.6 Albumin/Globulin Ratio 1.2 Urine Color Urine Appearance Urine pH Ur Specific Rena Lara Urine Protein Urine Glucose (UA) Urine Ketones Urine Blood Urine Nitrate Urine Bilirubin Urine Urobilinogen Ur Leukocyte Esterase Urine RBC Urine WBC Ur Epithelial Cells Urine Bacteria Influenza Typ A,B (EIA) 03/14/18 03/14/18 00:54 01:20 WBC RBC Hgb Hct MCV MCH MCHC RDW Plt Count MPV Neut % (Auto) Lymph % (Auto) Kenton % (Auto) Eos % (Auto) Baso % (Auto) Lymph # (Auto) Kenton # (Auto) Eos # (Auto) Baso # (Auto) Absolute Neuts (auto) PT INR APTT D-Dimer, Quantitative Sodium Potassium Chloride Carbon Dioxide Anion Gap BUN Creatinine Est GFR ( Amer) Est GFR (Non-Af Amer) Random Glucose Calcium Magnesium Total Bilirubin AST ALT Alkaline Phosphatase Lactate Dehydrogenase Total Creatine Kinase Troponin I Total Protein Albumin Globulin Albumin/Globulin Ratio Urine Color Yellow Urine Appearance Clear Urine pH 6.0 Ur Specific Rena Lara 1.015 Urine Protein Trace H Urine Glucose (UA) >=1000 Urine Ketones Negative Urine Blood Negative Urine Nitrate Negative Urine Bilirubin Negative Urine Urobilinogen 0.2 Ur Leukocyte Esterase Negative Urine RBC 0 - 2 Urine WBC 0 - 2 Ur Epithelial Cells 0 - 2 Urine Bacteria None Influenza Typ A,B (EIA) Negative for flu a/b Attending/Attestation - Attestation I have personally seen and examined this patient.: Yes I have fully participated in the care of the patient.: Yes I have reviewed all pertinent clinical information: Yes Notes (Text): 03/14/18 05:03 Patient was seen when he was in the ER .Medical record was reviewed. Agree with history, physical examination, assessment and plan.
[2018-03-14] MEDS: Pantoprazole 40 mg EC Tab PO SCH (05:28)
[2018-03-14 08:36] LABS: HDL CHOLESTEROL 43 mg/dL (29-60)
[2018-03-14 08:47] LABS: LDL CHOLESTEROL 95 mg/dL (0-129)
[2018-03-14] MEDS: Insulin Lispro (humaLOG) MEDIUM Coverage SC SCH ×4 (09:32→21:39)
[2018-03-14] MEDS: Non Formulary Medication (Ranolazine [Ranexa] 500 MG) PO SCH (09:51)
--- NOTE | 2018-03-14 12:24 | CARD ---
APPROVED REPORT Date of service: 03/14/2018 EKG Measurement Heart [id number] <Conclusion> Sinus tachycardia with 1st degree AV block Otherwise normal ECG
[2018-03-14] MEDS ORDERED: Iodixanol 320 MG/ML 100 ML BOTTLE IV ONE (13:15)
[2018-03-14] MEDS ORDERED: Iodixanol 320 MG/ML 200 ML BOTTLE IV ONE (13:15)
[2018-03-14] MEDS ORDERED: Iohexol 350mgl/ml 50 ML ONE (13:15)
[2018-03-14] MEDS ORDERED: Lidocaine 2% Inj (20ml) ONE (13:15)
[2018-03-14] MEDS ORDERED: Nitroglycerin 50mg in D5W 50 MG/250 ML BOTTLE IV ONE (13:16)
[2018-03-14] MEDS ORDERED: Phenylephrine 10 mg/ml Inj ONE (13:16)
[2018-03-14] MEDS ORDERED: Midazolam 2 MG/2 ML VIAL ONE ×3 (14:01→14:21)
--- NOTE | 2018-03-14 14:46 | RAD ---
Date of service: 03/14/2018 HISTORY: Chest. COMPARISON: 12/26/2017 FINDINGS: LUNGS: No active pulmonary disease. PLEURA: No significant pleural effusion identified, no pneumothorax apparent. CARDIOVASCULAR: No atherosclerotic calcification present Normal. OSSEOUS STRUCTURES: No significant abnormalities. VISUALIZED UPPER ABDOMEN: Normal. OTHER FINDINGS: None. IMPRESSION: No active disease. No significant interval change compared to the prior examination(s).
[2018-03-14] MEDS ORDERED: Sodium Chloride 0.9% 1,000 ML IV SCH (15:15)
[2018-03-14 18:17] VITALS: BMI 32.6
[2018-03-14] MEDS ORDERED: Influenza Vaccine 60 mcg/0.5 mL SYR (4YR UP) IM ONE (18:17)
[2018-03-14] MEDS ORDERED: Pneumococcal 23-Valent Vaccine IM ONE (18:17)
--- NOTE | 2018-03-14 19:08 | CARDCATH ---
PROCEDURE DATE: 03/14/2018 HISTORY: The patient is a 62-year-old male who developed sudden onset of substernal chest pressure 24 hours ago. The patient's past medical history is notable for multivessel PTCA and stent, the last one performed about 2 months ago. Suffers from hypertension, hypercholesterolemia, as well as diabetes mellitus. In the emergency room, his troponins were from 0.01-0.27. Because of this and his ongoing symptom, an emergency cardiac catheterization was recommended. PROCEDURE: Emergency left heart catheterization with coronary arteriography and left ventriculogram with supra-aortic valvular injection. This was followed by PTCA and stent of the posterior lateral branch of the RCA. The right femoral artery was cannulated with 6-Afghan sheath. There were no complications. I performed moderate sedation which included the presence of an independent trained observer that assisted in monitoring the patient's level of consciousness and physiologic status. After administration of Versed and fentanyl, my intra service time was 30 minutes. The findings on catheterization revealed a left ventricle that contracted normally. Estimated ejection fraction of 70%. Supra-aortic valvular injection revealed no aortic insufficiency. The patient had a right dominant circulation. The proximal portion of the RCA revealed a patent stent, there is a 30-40% stenosis in the midportion. The posterior lateral branch revealed a 99% stenosis at its ostium. Collaterals were seen going to the distal vessel from the left circulation. The left main artery was free of critical lesions. The LAD revealed multiple patent stents. The diagonal vessel revealed patent stent, the circumflex artery revealed patent stents. The patient was started on intravenous Angiomax on the fluoroscopic guide, the guiding catheter was placed in the ostium of the RCA. An 0.014 ATW wire was used to place in the RCA across into the posterolateral branch across the critical lesion. A 2.0 balloon was utilized to predilate the lesion and 200 mcg of IC nitroglycerin was given. A 2.25 x 8 mm drug-eluting stent was placed and deployed at 14 atmospheres of pressure. Repeat coronary arteriography revealed an excellent result with no residual stenosis and IDALIA III flow. Angio-Seal was used to close the femoral artery site. The patient tolerated the procedure well. In summary, the procedure was an emergency PTCA and stent of a 99% posterior lateral branch lesion of the RCA. Cardiac catheterization reveals patent stents in the RCA, circumflex artery. LAD and diagonal vessel with the ostium of the posterior lateral branch being the culprit lesion. LV function is normal. Supra-aortic valve injection revealed no aortic insufficiency. Given these findings, the patient will need to remain on aspirin indefinitely and Plavix for at least a year and undergo a cardiac risk reduction program. Ar Dewey MD
[2018-03-14 23:38] VITALS: RESP 19; O2SAT 97
[2018-03-15] MEDS: Pantoprazole 40 mg EC Tab PO SCH (05:21)
[2018-03-15 06:17] VITALS: PULSE 81; TEMP 97.6
[2018-03-15 06:47] LABS: BASO # 0.02 K/mm3 (0.0-2.0); BASO % 0.2 % (0.0-3.0); EOS # 0.1 (0.0-0.7); EOS % 0.6 % (1.5-5.0); LYMPH % 28.2 % (22.0-35.0); MEAN CELL VOLUME 83.1 fl (80.0-105.0); MEAN CORPUSCULAR HEMOGLOBIN 28.6 pg (25.0-35.0); MEAN CORPUSCULAR HGB CONC 34.4 g/dl (31.0-37.0); MEAN PLATELET VOLUME 10.7 fl (7.0-11.0); MONO # 0.9 (0.1-0.6); MONO % 8.1 % (1.0-6.0); RBC 4.9 10^6/uL (3.5-6.1); RED CELL DISTRIBUTION WIDTH 13.3 % (11.5-14.5); WHITE BLOOD COUNT 10.6 10^3/uL (4.5-11.0)
[2018-03-15 07:26] LABS: ALB/GLOB RATIO 1.2 (1.1-1.8); ALBUMIN 3.9 g/dL (3.0-4.8); ALT/SGPT 23 U/L (7-56); AST/SGOT 26 U/L (17-59); BLOOD UREA NITROGEN 19 mg/dL (7-21); CALCIUM 9.1 mg/dL (8.4-10.5); GFR NON-AFRICAN AMERICAN > 60
[2018-03-15] MEDS: Non Formulary Medication (Ranolazine [Ranexa] 500 MG) PO SCH (09:46)
[2018-03-15] MEDS: Insulin Lispro (humaLOG) MEDIUM Coverage SC SCH (09:46)
[2018-03-15 09:47] VITALS: BP 133/77
--- NOTE | 2018-03-15 10:24 | CP.PCM.DIS ---
Provider - Provider Date of Admission: 03/14/18 01:43 Attending physician: Marisa Bob DO Consults: 03/14/18 03:06 Cardiology Consult Routine Comment: Consulting Provider: Ar Dewey Consulting Physician: Ar Dewey Reason for Consult: chest pain, dyspnea on exertion, hx 8 prior stents 03/14/18 18:17 Inpatient [employer] Core Measures Referral Routine Comment: chest pain Physician Instructions: Reason For Exam: eval Transition In Care/Readmission Reduction Routine Comment: chest pain Physician Instructions: Reason For Exam: eval Time Spent in preparation of Discharge (in minutes): 45 Diagnosis - Discharge Diagnosis (1) S/P angioplasty with stent Status: Resolved Priority: High (2) Chest pain Status: Resolved (3) CAD (coronary artery disease) Status: Chronic Priority: High Hospital Course - Lab Results Lab Results: Most Recent Lab Values WBC 10.6 10^3/uL (4.5-11.0) 03/15/18 06:00 RBC 4.90 10^6/uL (3.5-6.1) 03/15/18 06:00 Hgb 14.0 g/dL (14.0-18.0) 03/15/18 06:00 Hct 40.7 % (42.0-52.0) L 03/15/18 06:00 MCV 83.1 fl (80.0-105.0) 03/15/18 06:00 MCH 28.6 pg (25.0-35.0) 03/15/18 06:00 MCHC 34.4 g/dl (31.0-37.0) 03/15/18 06:00 RDW 13.3 % (11.5-14.5) 03/15/18 06:00 Plt Count 196 10^3/uL (120.0-450.0) 03/15/18 06:00 MPV 10.7 fl (7.0-11.0) 03/15/18 06:00 Neut % (Auto) 62.9 % (50.0-68.0) 03/15/18 06:00 Lymph % (Auto) 28.2 % (22.0-35.0) 03/15/18 06:00 [place] % (Auto) 8.1 % (1.0-6.0) H 03/15/18 06:00 Eos % (Auto) 0.6 % (1.5-5.0) L 03/15/18 06:00 Baso % (Auto) 0.2 % (0.0-3.0) 03/15/18 06:00 Lymph # (Auto) 3.0 (1.2-3.4) 03/15/18 06:00 [facility] # (Auto) 0.9 (0.1-0.6) H 03/15/18 06:00 Eos # (Auto) 0.1 (0.0-0.7) 03/15/18 06:00 Baso # (Auto) 0.02 K/mm3 (0.0-2.0) 03/15/18 06:00 Absolute Neuts (auto) 6.69 (1.4-6.5) H 03/15/18 06:00 PT 12.1 SECONDS (9.4-12.5) 03/14/18 00:54 INR 1.09 03/14/18 00:54 APTT 31.7 Seconds (26.9-38.3) 03/14/18 00:54 D-Dimer, Quantitative < 200 ng/mlDDU (0-243) 03/14/18 00:54 Sodium 139 mmol/L (132-148) 03/15/18 06:00 Potassium 3.9 mmol/L (3.6-5.0) 03/15/18 06:00 Chloride 105 mmol/L (98-107) 03/15/18 06:00 Carbon Dioxide 27 mmol/L (21-33) 03/15/18 06:00 Anion Gap 10 (10-20) 03/15/18 06:00 BUN 19 mg/dL (7-21) 03/15/18 06:00 Creatinine 0.9 mg/dl (0.8-1.5) 03/15/18 06:00 Est GFR ( Amer) > 60 03/15/18 06:00 Est GFR (Non-Af Amer) > 60 03/15/18 06:00 POC Glucose (mg/dL) 140 mg/dL (65-110) H 03/15/18 07:39 Random Glucose 147 mg/dL (70-110) H 03/15/18 06:00 Hemoglobin A1c 6.4 % (4.2-6.5) 03/14/18 07:50 Calcium 9.1 mg/dL (8.4-10.5) 03/15/18 06:00 Phosphorus 3.5 mg/dL (2.5-4.5) 03/15/18 06:00 Magnesium 2.0 mg/dL (1.7-2.2) 03/15/18 06:00 Total Bilirubin 0.5 mg/dL (0.2-1.3) 03/15/18 06:00 AST 26 U/L (17-59) 03/15/18 06:00 ALT 23 U/L (7-56) 03/15/18 06:00 Alkaline Phosphatase 70 U/L (38-126) 03/15/18 06:00 Lactate Dehydrogenase 386 U/L (333-699) 03/14/18 00:54 Total Creatine Kinase 142 U/L (35-230) 03/14/18 00:54 Troponin I 0.27 ng/mL H* D 03/14/18 11:55 Total Protein 7.1 g/dL (5.8-8.3) 03/15/18 06:00 Albumin 3.9 g/dL (3.0-4.8) 03/15/18 06:00 Globulin 3.3 gm/dL 03/15/18 06:00 Albumin/Globulin Ratio 1.2 (1.1-1.8) 03/15/18 06:00 Triglycerides 143 mg/dL (35-160) 03/14/18 07:50 Cholesterol 157 mg/dL (130-200) 03/14/18 07:50 LDL Cholesterol Direct 95 mg/dL (0-129) 03/14/18 07:50 HDL Cholesterol 43 mg/dL (29-60) 03/14/18 07:50 TSH 3rd Generation 0.43 mIU/mL (0.46-4.68) L 03/14/18 07:50 Urine Color Yellow (YELLOW) 03/14/18 01:20 Urine Appearance Clear (CLEAR) 03/14/18 01:20 Urine pH 6.0 (4.7-8.0) 03/14/18 01:20 Ur Specific [place] 1.015 (1.005-1.035) 03/14/18 01:20 Urine Protein Trace mg/dL (<30 mg/dL) H 03/14/18 01:20 Urine Glucose (UA) >=1000 mg/dL (NEGATIVE) 03/14/18 01:20 Urine Ketones Negative mg/dL (NEGATIVE) 03/14/18 01:20 Urine Blood Negative (NEGATIVE) 03/14/18 01:20 Urine Nitrate Negative (NEGATIVE) 03/14/18 01:20 Urine Bilirubin Negative (NEGATIVE) 03/14/18 01:20 Urine Urobilinogen 0.2 E.U./dL (<1 E.U./dL) 03/14/18 01:20 Ur Leukocyte Esterase Negative [place]/uL (NEGATIVE) 03/14/18 01:20 Urine RBC 0 - 2 /hpf (0-2) 03/14/18 01:20 Urine WBC 0 - 2 /hpf (0-6) 03/14/18 01:20 Ur Epithelial Cells 0 - 2 /hpf (0-5) 03/14/18 01:20 Urine Bacteria None /hpf (NONE) 03/14/18 01:20 Influenza Typ A,B (EIA) Negative for flu a/b (NEGATIVE) 03/14/18 00:54 - Hospital Course Hospital Course: Upon Admission: 62 y/o male with PMhx HTN, COPD, NM, CAD s/p multiple stents, DM2, and GERD who presented to the ED w/ c/o L-sided chest pain x 3 hrs. Pt stated he was sleeping at home when the chest pain awoke him from sleep, stated it was sudden in onset. Worsened when he lied down flat and exerted himself. States the chest pain has improved since being in the ED but was still present. Stated chest pain didn't get worse with palpation at affected site. Also stated that he had been having progressive dyspnea on exertion for the past 3 months. Denied diaphoresis, fever or chills. Stated he had a cold that had been present since yesterday, only admitted to nasal congestion, denied cough. Hospital Course: Pt was admitted for chest pain & rule out ACS. Troponins were trended and were <0.01, 0.12 & 0.27. EKG on admission demonstrates sinus tachycardia at 104 bpm, no acute St-t wave changes noted. D-dimer neg. CXR demonstrates no acute disease. Cardiology was consulted and patient was taken to slab polisher for emergency PTCA & stent of 99% posterior lateral brach lesion of the RCA. Cardiac cath revealed patent stents in the RCA, circumflex artery, LAD and diagonal vessel with the ostium of the posterior lateral branch being the culprit lesion. Pt was instructed to remain on aspirin indefinitely and plavix for at least 1 year and undergo cardiac risk reduction program. Upon Discharge: Pt is feeling better. He reports no acute complaints. Vital signs stable. Pt was instructed, in great detail on medication compliance, outpatient followup and to return to any ED if symptoms return. Discharge Exam - Head Exam Head Exam: ATRAUMATIC, NORMOCEPHALIC - Eye Exam Eye Exam: EOMI, Normal appearance - ENT Exam ENT Exam: Mucous Membranes Moist, Normal Exam - Neck Exam Neck exam: Normal Inspection - Respiratory Exam Respiratory Exam: Clear to PA & Lateral, NORMAL BREATHING PATTERN - Cardiovascular Exam Cardiovascular Exam: REGULAR RHYTHM, +S1, +S2 - GI/Abdominal Exam GI & Abdominal Exam: Unremarkable - Extremities Exam Extremities exam: normal inspection - Back Exam Back exam: NORMAL INSPECTION - Neurological Exam Neurological exam: Alert, Oriented x3 - Psychiatric Exam Psychiatric exam: Normal Affect, Normal Mood - Skin Skin Exam: Dry, Intact, Warm Discharge Plan - Follow Up Plan Condition: GOOD Disposition: HOME/ ROUTINE Instructions: Chest Pain (DC), Chest Pain (GEN) Additional Instructions: Please follow up with your primary care doctor, Dr. Radames Navarro, within 3-5 days of discharge Please follow up with your railway engineer (heart doctor), Dr. Dewey, within 3-5 days of discharge You will need to take Aspirin indefinitely, you will need to remain on Plavix (Clopidogrel) for at least 1 year Please STOP taking the following medication Protonix (Pantoprazole) 40mg. Your railway engineer requested that you NOT take this medication anymore Please continue taking the medications that you were taking previously at home. Please discuss these medications with your primary care doctor and your railway engineer. If any of your symptoms return or you experience new symptoms, please visit the nearest emergency room Referrals: Mackenzie Crum MD [Medical Doctor] - Ar Dewey MD [Staff Provider] -
--- NOTE | 2018-03-15 12:46 | PN ---
DATE: 03/15/2018 CARDIOLOGY FOLLOWUP SUBJECTIVE: The patient is status post PTCA and stent of a subtotally occluded posterior lateral branch of the RCA. He is currently chest pain free. PHYSICAL EXAMINATION: VITAL SIGNS: Blood pressure 116/77, heart rates in the 60s. NECK: Negative JVD. LUNGS: Without rales. HEART: S1, S2. EXTREMITIES: Without edema. LABORATORY DATA: Hemoglobin is 14. Chemistries unremarkable. Glucose is 147. IMPRESSION: 1. Non-ST elevation myocardial infarction. 2. Subtotally occluded posterior lateral branch of the right coronary artery. 3. Successful percutaneous transluminal coronary angioplasty and stent of the posterior lateral branch. 4. Diabetes mellitus. 5. Hypertension. 6. Hypercholesterolemia. 7. Former smoker. Given these findings, the patient's cardiac status is stable. He will continue his medications at home. Follow up instructions have been given to the patient. We will discontinue telemetry today. From a cardiac perspective, the patient can be discharged. Ar Dewey MD
== END 2018-03-15 11:49 | disposition home or self-care (01) ==
LOC: ED 00:37 → ERH 01:43 → 2RSO 15:15
PROVIDERS: ADMIT Hospitalist; ATTEND Hospitalist
DX: I21.4 Non-ST elevation (NSTEMI) myocardial infarction (principal); I25.10 Atherosclerotic heart disease of native coronary artery without angina pectoris; I10 Essential (primary) hypertension; E11.9 Type 2 diabetes mellitus without complications; E78.00 Pure hypercholesterolemia, unspecified; J44.9 Chronic obstructive pulmonary disease, unspecified; K21.9 Gastro-esophageal reflux disease without esophagitis; E78.5 Hyperlipidemia, unspecified; I25.2 Old myocardial infarction; Z87.891 Personal history of nicotine dependence; Z79.02 Long term (current) use of antithrombotics/antiplatelets; Z79.82 Long term (current) use of aspirin; Z79.84 Long term (current) use of oral hypoglycemic drugs; Z95.5 Presence of coronary angioplasty implant and graft
CPT/HCPCS: 36415; 71045; 80053; 80061; 81001; 82550; 82948; 83036; 83615; 83735; 84100; 84443; 84484; 85025; 85378; 85610; 85730; 87804; 93005; 93458; 96372; 96374; 99152; 99153; 99285; C1725; C1760; C1769; C1874; C1887; C2629; C9600; G0378; J0583; J1644; J2250; J2270; J3010; J7030; J7040; Q9966; Q9967